=== PATIENT | male | born 1935 | race Caucasian/White ===

== ENCOUNTER 2016-09-30 18:34 | Observation (INO) | payer OTHER ==
[~2016-09-30] VITALS: Ht 188 cm; Wt 84.4 kg
[~2016-09-30 18:34] MED LIST: ALPR-411 PO; ASCA500 PO; ATOR-26 PO; CLOP1TAB15 PO; FINA5TAB4 PO; FLUT50SP14; FLX10 PO; GEMF600T3 PO; LEVO125T72 PO; MULT-506 PO; NTRGSL/4 UT; PANT40TA PO; RANI300T PO
--- NOTE | 2016-09-30 19:05 | EMERGENCY ROOM VISIT NOTE ---
History Report prepared by Fidel: Lynda Howell Under the Supervision of: Dr. Guillaume Mario M.D. First contact with patient: 18:57 Chief Complaint: CHEST PAIN Stated Complaint: CHEST PAIN Nursing Triage Summary: Pt reports chest pain, SOB, dizziness. It started yesterday. Hx cardiac stents and pacemaker. History of Present Illness The patient is a 81 year old male who presents to the Emergency Room with complaints of intermittent chest pain that began yesterday. He notes that the pain goes across his chest. It is worse with eating and drinking and occasionally worse with exertion. Nothing seems to make it better. He has been taking antacids without relief. He also complains of dizziness and shortness of breath. Currently, he is not having any chest pain. He is on Plavix. He took his morning dose so far today. The patient has cardiac stents which were placed years ago. He notes that his pain feels similar to the pain he had with a hiatal hernia but it does not feel similar to his symptoms when he had his stents placed. He follows up with Dr. Padron from cardiology. He has not taken any nitroglycerin since the onset of his symptoms. Source of History: patient Onset: yesterday Position: chest Timing: intermittent Modifying Factors (Worsening): exertion (occasionally), eating, drinking Associated Symptoms: + SOB Note: Other symptoms: dizziness Review of Systems See HPI for pertinent positives & negatives. A total of 10 systems reviewed and were otherwise negative. Past Medical & Surgical Medical Problems: (1) Aspirin allergy (2) BPH (benign prostatic hyperplasia) (3) CAD (coronary artery disease) (4) Chest pain (5) GERD (gastroesophageal reflux disease) (6) HLD (hyperlipidemia) (7) Hypothyroidism (8) Lactose intolerance (9) Mitral valve disorder (10) Pacemaker (11) SSS (sick sinus syndrome) (12) TIA (transient ischemic attack) Surgical Problems: (1) H/O colonoscopy (2) H/O hernia repair (3) History of esophagogastroduodenoscopy (EGD) (4) Hx of CABG (5) Hx of tonsillectomy (6) Stented coronary artery Family History Diabetes mellitus Social History Smoking Status: Never Smoker Alcohol Use: none Drug Use: none Marital Status: Housing Status: lives with family Occupation Status: retired Current/Historical Medications Scheduled Alprazolam (Xanax), 0.25 MG PO BID PRN Ascorbic Acid (Vitamin C *), 500 MG PO DAILY Atorvastatin (Lipitor), 80 MG PO DAILY Clopidogrel (Plavix), 75 MG PO BID Finasteride (Proscar), 5 MG PO DAILY Fluticasone Propionate (Flonase Nasal [place]), 2 SPRAYS NA DAILY Gemfibrozil (Lopid), 600 MG PO BIDM Levothyroxine Sodium (Synthroid), 1 TAB PO DAILY Multivitamin (Multivitamin), 1 TAB PO DAILY Nitroglycerin (Nitrostat), 0.4 MG UT PRN Ranitidine Hcl (Zantac), 300 MG PO DAILY Allergies Coded Allergies: Aspirin (Verified Allergy, Severe, HIVES/ANGIOEDEMA, 09/30/16) Cilostazol (Verified Allergy, Unknown, unknown, 08/10/16) gmg Lactose Intolerance (Verified Adverse Reaction, Mild, GI SYMPTOMS, 09/30/16) Physical Exam Vital Signs Date Time Temp Pulse Resp B/P Pulse Ox O2 Delivery O2 Flow Rate FiO2 09/30/16 19:24 95 3.0 09/30/16 19:07 95 Room Air 09/30/16 19:07 95 09/30/16 18:52 62 09/30/16 18:47 36.4 63 20 174/95 95 Room Air Physical Exam GENERAL: Patient is a healthy-appearing well-nourished 81 year old male HEAD: Normocephalic atraumatic EYES: Ocular movements intact pupils equal and react to light OROPHARYNX mucous membranes are moist no exudates present no erythema or edema present NECK: Supple no nuchal rigidity CHEST: Good equal expansion LUNGS: Clear and equal to auscultation CARDIAC: Normal S1 and S2 ABDOMEN: Soft nontender no guarding BACK: No CVA tenderness EXTREMITIES: No pain upon palpation normal muscle strength in all groups no clubbing cyanosis or edema NEURO: Patient is following commands is answering questions appropriately. Alert and oriented x3 Cranial Nerves 2-12 grossly intact Medical Decision & Procedures ER Provider Diagnostic Interpretation: X-ray results as stated below per interpretation by me and the radiologist: SINGLE VIEW CHEST CLINICAL HISTORY: Atypical chest pain. FINDINGS: 2 AP, portable, upright chest radiographs are compared to study dated 08/10/2016. The examination is degraded by portable technique and patient rotation. A 2-lead cardiac pacemaker is unchanged in position and partially obscures the left upper chest. The patient is status post midline sternotomy. The heart is enlarged and there is atherosclerotic calcification of the thoracic aorta. The pulmonary vasculature is noncongested. Mild elevation right hemidiaphragm and chronic interstitial thickening are similar to previous. The lungs and pleural spaces are otherwise clear. No pneumothorax is seen. The skeletal structures are osteopenic. The bony thorax is grossly intact. Calcific tendinopathy is noted in the left shoulder. IMPRESSION: 1. Cardiomegaly and cardiac pacemaker. There is no radiographic evidence of congestive failure. 2. No airspace consolidation or pleural effusion is seen. Electronically signed by: Ludwin Agosto M.D. 09/30/2016 8:02 PM Dictated Date/Time: 09/30/2016 8:00 PM Laboratory Results 09/30/16 18:50 Red Blood Count 4.55, Mean Corpuscular Volume 94.7, Mean Corpuscular Hemoglobin 31.4, Mean Corpuscular Hemoglobin Concent 33.2, Mean Platelet Volume 10.0, Neutrophils (%) (Auto) 55.9, Lymphocytes (%) (Auto) 29.0, Monocytes (%) (Auto) 11.8, Eosinophils (%) (Auto) 2.6, Basophils (%) (Auto) 0.5, Neutrophils # (Auto ) 2.37, Lymphocytes # (Auto) 1.23, Monocytes # (Auto) 0.50, Eosinophils # (Auto ) 0.11, Basophils # (Auto) 0.02 09/30/16 18:50 Test 09/30/16 18:50 09/30/16 19:15 09/30/16 19:19 09/30/16 19:24 White Blood Count 4.24 K/uL (4.8-10.8) Red Blood Count 4.55 M/uL (4.7-6.1) Hemoglobin 14.3 g/dL (14.0-18.0) Hematocrit 43.1 % (42-52) Mean Corpuscular Volume 94.7 fL (80-100) Mean Corpuscular Hemoglobin 31.4 pg (25-34) Mean Corpuscular Hemoglobin Concent 33.2 g/dl (32-36) Platelet Count 292 K/uL (130-400) Mean Platelet Volume 10.0 fL (7.4-10.4) Neutrophils (%) (Auto) 55.9 % Lymphocytes (%) (Auto) 29.0 % Monocytes (%) (Auto) 11.8 % Eosinophils (%) (Auto) 2.6 % Basophils (%) (Auto) 0.5 % Neutrophils # (Auto) 2.37 K/uL (1.4-6.5) Lymphocytes # (Auto) 1.23 K/uL (1.2-3.4) Monocytes # (Auto) 0.50 K/uL (0.11-0.59) Eosinophils # (Auto) 0.11 K/uL (0-0.5) Basophils # (Auto) 0.02 K/uL (0-0.2) RDW Standard Deviation 47.2 fL (36.4-46.3) RDW Coefficient of Variation 13.6 % (11.5-14.5) Immature Granulocyte % (Auto) 0.2 % Immature Granulocyte # (Auto) 0.01 K/uL (0.00-0.02) Est Creatinine Clear Calc Drug Dose 54.3 ml/min Estimated GFR () 64.4 Estimated GFR (Non- 55.6 BUN/Creatinine Ratio 19.7 (10-20) Calcium Level 8.9 mg/dl (8.5-10.1) Total Bilirubin 0.4 mg/dl (0.2-1) Direct Bilirubin 0.1 mg/dl (0-0.2) Aspartate Amino Transf (AST/SGOT) 22 U/L (15-37) Alanine Aminotransferase (ALT/SGPT) 25 U/L (12-78) Alkaline Phosphatase 127 U/L (45-117) Total Creatine Kinase 210 U/L (39-308) Creatine Kinase MB 5.1 ng/ml (0.5-3.6) Creatine Kinase MB Ratio 2.4 (0-3.0) Troponin I < 0.015 ng/ml (0-0.045) Total Protein 7.8 gm/dl (6.4-8.2) Albumin 4.3 gm/dl (3.4-5.0) Lipase 332 U/L (73-393) Bedside Lactic Acid Venous 0.47 mmol/L (0.90-1.70) Bedside Hemoglobin 13.9 g/dl (14.0-18.0) Bedside Hematocrit 41 % (42-52) Bedside Sodium 145 mEq/L (135-144) Bedside Potassium 4.0 mEq/L (3.3-5.0) Bedside Chloride 105 mEq/L (101-112) Bedside Total CO2 29 mEq/l (24-31) Anion Gap 16.0 mmol/L (16-25) Bedside Blood Urea Nitrogen 29 mg/dl (7-18) Bedside Creatinine 1.0 mg/dl (0.6-1.3) Bedside Glucose (other) 101 mg/dl (70-99) Bedside Ionized Calcium (Harry) 1.15 mmol/l (1.12-1.32) Bedside Troponin I 0.000 ng/ml (0-0.045) Test 09/30/16 19:46 Bedside D-Dimer 352 ng/mlFEU (0-450) Labs reviewed by ED physician. ECG Indication: chest pain Rate (beats per minute): 65 Rhythm: other (atrial paced) Findings: RBBB, no acute ischemic change, no ectopy ED Course 1857: Past medical records reviewed. The patient was evaluated in room B10. A complete history and physical examination was performed. 1948: Upon reexamination the patient is resting comfortably. I discussed results and treatment plan with the patient. He verbalizes agreement and understanding. [facility] The patient will be evaluated for further management. Medical Decision Differential diagnosis: Etiologies such as cardiac ischemia, aortic dissection, pulmonary embolism, pneumonia, pneumothorax, musculoskeletal, infections, pericarditis, myocarditis , esophageal rupture, gastrointestinal, as well as others were entertained. This is an 81-year-old male who presents emergency department complaining of exertional chest pain that has been on going for the past 3 days. The patient has a history of cardiac stents placed. Upon arrival to the emergency department the patient is currently pain-free. Because of the patient's past medical history I did discuss the case with the hospitalist service who agreed to admit the patient. Patient family were in agreement with the treatment plan. Consults Time Called: 1944 Consulting Physician[facility] Returned Call: 1948 I discussed the case with her. The patient will be evaluated for further management. Impression Primary Impression: Precordial chest pain Scribe Attestation The scribe's documentation has been prepared under my direction and personally reviewed by me in its entirety. I confirm that the note above accurately reflects all work, treatment, procedures, and medical decision making performed by me. Departure Information Dispostion Being Evaluated By Hospitalist Referrals Darell Mckeon D.O. (PCP) Patient Instructions My [facility]
[2016-09-30 19:23] LABS: BASO % 0.5 %; BASO ABS # 0.02 K/uL (0-0.2); COMPLETE YES; EOS % 2.6 %; HEMATOCRIT 43.1 % (42-52); IG% 0.2 %; LYMPH ABS # 1.23 K/uL (1.2-3.4); MEAN CELL VOLUME 94.7 fL (80-100); MEAN CORPUSCULAR HEMOGLOBIN 31.4 pg (25-34); MEAN CORPUSCULAR HGB CONC 33.2 g/dl (32-36); MONO % 11.8 %; NEUT % 55.9 %; PLATELET COUNT 292 K/uL (130-400); RED BLOOD COUNT 4.55 M/uL (4.7-6.1); WHITE BLOOD COUNT 4.24 K/uL (4.8-10.8)
[2016-09-30 19:31] LABS: BLOOD UREA NITROGEN 24 mg/dl (7-18); BUN/CREATININE RATIO 19.7 (10-20); CALCIUM 8.9 mg/dl (8.5-10.1); CARBON DIOXIDE 29 mmol/L (21-32); CHLORIDE 108 mmol/L (98-107); GLUCOSE 96 mg/dl (70-99); POTASSIUM 3.7 mmol/L (3.5-5.1); SODIUM 145 mmol/L (136-145)
[2016-09-30 19:35] LABS: ISTAT HEMOGLOBIN 13.9 g/dl (14.0-18.0); ISTAT IONIZED CALCIUM 1.15 mmol/l (1.12-1.32)
[2016-09-30 19:36] LABS: ALKALINE PHOSPHATASE 127 U/L (45-117); ALT/SGPT 25 U/L (12-78); AST/SGOT 22 U/L (15-37); CKMB/CK RATIO 2.4 (0-3.0)
--- NOTE | 2016-09-30 20:04 | DIAGNOSTIC IMAGING REPORT ---
SINGLE VIEW CHEST CLINICAL HISTORY: Atypical chest pain. FINDINGS: 2 AP, portable, upright chest radiographs are compared to study dated 08/10/2016. The examination is degraded by portable technique and patient rotation. A 2-lead cardiac pacemaker is unchanged in position and partially obscures the left upper chest. The patient is status post midline sternotomy. The heart is enlarged and there is atherosclerotic calcification of the thoracic aorta. The pulmonary vasculature is noncongested. Mild elevation right hemidiaphragm and chronic interstitial thickening are similar to previous. The lungs and pleural spaces are otherwise clear. No pneumothorax is seen. The skeletal structures are osteopenic. The bony thorax is grossly intact. Calcific tendinopathy is noted in the left shoulder. IMPRESSION: 1. Cardiomegaly and cardiac pacemaker. There is no radiographic evidence of congestive failure. 2. No airspace consolidation or pleural effusion is seen. Electronically signed by: Ludwin Agsoto M.D. 09/30/2016 8:02 PM Dictated Date/Time: 09/30/2016 8:00 PM
[2016-09-30] MEDS ORDERED: ACETAMINOPHEN 325 MG TAB PO PRN (20:15)
[2016-09-30] MEDS ORDERED: NITROGLYCERIN 0.4 MG SL PER TAB CHARGE SL PRN (20:15)
[2016-09-30] MEDS ORDERED: ONDANSETRON INJ 2 MG/ML 2 ML VIAL IV PRN (20:15)
[2016-09-30 20:39] LABS: INR 1.1 (0.9-1.1); PARTIAL THROMBOPLASTIN RATIO 1.1
[2016-09-30] MEDS ORDERED: GI COCKTAIL PO PRN (20:45)
[2016-09-30] MEDS ORDERED: ALPRAZOLAM 0.5 MG TAB PO PRN (20:45)
[2016-09-30] MEDS ORDERED: HydrALAZINE HCL 20 MG/ML VIAL IV. ONE (21:00)
[2016-09-30] MEDS ORDERED: ENOXAPARIN 40 MG/0.4 ML SYR SC SCH (21:00)
--- NOTE | 2016-09-30 21:02 | History and Physical ---
History & Physical Date & Time of Service: Sep 30, 2016 at 20:40 Chief Complaint: Chest Pain Primary Care Physician: Darell Mckeon D.O. History of Present Illness Source: patient, family, clinic records, hospital records Patient seen and examined. 81 year old male with PMHx of CAD s/p CABG s/p stents , H/O TIA, GERD, Hypothyrodism, SA node dysfunction s/p pacemaker, BPH and HLD presents to the ED complaining of chest pain x 2 days. Patient states he has been getting diffuse chest pressure with radiation to the throat since yesterday. The pain usually comes with eating or walking. He has associated SOB , and dizziness. He rates the pain as a 2-3/10 and it usually lasts for 30- 45minutes and resolves spontaneously. He tried nitro at home which didn't help. He tried antacids at home which did help. These symptoms made his worried and he decided to come to the ED. He denies fevers, chills, URI symptoms, palpitations, nausea, vomiting, diarrhea, dysuria, calf pain and edema. In the ED BP is elevated, VS are otherwise stable, Geremias are negative x 1, EKG is nonischemic. DDimer is negative. Patient is chest pain free. He will be observed for further workup and treatment. Past Medical/Surgical History Medical Problems: (1) Aspirin allergy Status: Chronic (2) BPH (benign prostatic hyperplasia) Status: Chronic (3) CAD (coronary artery disease) Status: Chronic (4) GERD (gastroesophageal reflux disease) Status: Chronic (5) HLD (hyperlipidemia) Status: Chronic (6) Hypothyroidism Status: Chronic (7) Lactose intolerance Status: Chronic (8) Mitral valve disorder Status: Chronic (9) Pacemaker Status: Chronic (10) SSS (sick sinus syndrome) Status: Chronic Surgical Problems: (1) H/O colonoscopy Status: Chronic (2) H/O hernia repair Status: Chronic (3) History of esophagogastroduodenoscopy (EGD) Status: Chronic (4) Hx of CABG Status: Chronic (5) Hx of tonsillectomy Status: Chronic (6) Stented coronary artery Status: Chronic Family History Diabetes mellitus Social History Smoking Status: Never Smoker Alcohol Use: none Drug Use: none Marital Status: Housing status: lives with family Occupational Status: retired Immunizations History of Influenza Vaccine: Yes Influenza Vaccine Date: Jun 25, 2012 History of Tetanus Vaccine?: Yes History of Pneumococcal: No History of Hepatitis B Vaccine: Unknown Multi-Drug Resistant Organisms History of MDRO: No Allergies Coded Allergies: Aspirin (Verified Allergy, Severe, HIVES/ANGIOEDEMA, 09/30/16) Cilostazol (Verified Allergy, Unknown, unknown, 08/10/16) gmg Lactose Intolerance (Verified Adverse Reaction, Mild, GI SYMPTOMS, 09/30/16) Home Medications Scheduled Alprazolam (Xanax), 0.25 MG PO BID PRN Ascorbic Acid (Vitamin C *), 500 MG PO DAILY Atorvastatin (Lipitor), 80 MG PO DAILY Clopidogrel (Plavix), 75 MG PO BID Finasteride (Proscar), 5 MG PO DAILY Fluticasone Propionate (Flonase Nasal [place]), 2 SPRAYS NA DAILY Gemfibrozil (Lopid), 600 MG PO BIDM Levothyroxine Sodium (Synthroid), 1 TAB PO DAILY Multivitamin (Multivitamin), 1 TAB PO DAILY Nitroglycerin (Nitrostat), 0.4 MG UT PRN Ranitidine Hcl (Zantac), 300 MG PO DAILY Review of Systems See above for pertinent positives & negatives. A total of 10 systems reviewed and were otherwise negative. Physical Exam Vital Signs Date Time Temp Pulse Resp B/P Pulse Ox O2 Delivery O2 Flow Rate FiO2 09/30/16 19:24 95 3.0 09/30/16 19:07 95 Room Air 09/30/16 19:07 95 09/30/16 18:52 62 09/30/16 18:47 36.4 63 20 174/95 95 Room Air General Appearance: + pertinent finding (Very pleasant WD/WN 81 year old male lying in bed in NAD with at bedside ) Head: normocephalic, atraumatic Eyes: PERRL, EOMI, sclerae normal ENT: hearing grossly normal, pharynx normal Neck: supple, no JVD, trachea midline Respiratory/Chest: chest non-tender, lungs clear, normal breath sounds, no respiratory distress, no accessory muscle use Cardiovascular: regular rate, rhythm, no edema, no gallop, no JVD, no murmur, normal peripheral pulses Abdomen/GI: normal bowel sounds, non tender, soft Back: normal inspection, no muscle spasm Extremities/Musculoskelatal: no calf tenderness, normal capillary refill, no pedal edema Neurologic/Psych: alert, oriented x 3, + pertinent finding (no motor or sensory deficits noted on gross exam ) Skin: normal color, warm/dry, no rash Lymphatic: no adenopathy Diagnostics Laboratory Results Results Past 24 Hours Test 09/30/16 18:50 09/30/16 19:15 09/30/16 19:19 09/30/16 19:24 Range/Units White Blood Count 4.24 4.8-10.8 K/uL Red Blood Count 4.55 4.7-6.1 M/uL Hemoglobin 14.3 14.0-18.0 g/dL Hematocrit 43.1 42-52 % Mean Corpuscular Volume 94.7 80-100 fL Mean Corpuscular Hemoglobin 31.4 25-34 pg Mean Corpuscular Hemoglobin Concent 33.2 32-36 g/dl Platelet Count 292 130-400 K/uL Mean Platelet Volume 10.0 7.4-10.4 fL Neutrophils (%) (Auto) 55.9 % Lymphocytes (%) (Auto) 29.0 % Monocytes (%) (Auto) 11.8 % Eosinophils (%) (Auto) 2.6 % Basophils (%) (Auto) 0.5 % Neutrophils # (Auto) 2.37 1.4-6.5 K/uL Lymphocytes # (Auto) 1.23 1.2-3.4 K/uL Monocytes # (Auto) 0.50 0.11-0.59 K/uL Eosinophils # (Auto) 0.11 0-0.5 K/uL Basophils # (Auto) 0.02 0-0.2 K/uL RDW Standard Deviation 47.2 36.4-46.3 fL RDW Coefficient of Variation 13.6 11.5-14.5 % Immature Granulocyte % (Auto) 0.2 % Immature Granulocyte # (Auto) 0.01 0.00-0.02 K/uL Prothrombin Time 12.0 9.0-12.0 SECONDS Prothromb Time International Ratio 1.1 0.9-1.1 Activated Partial Thromboplast Time 28.0 21.0-31.0 SECONDS Partial Thromboplastin Ratio 1.1 Sodium Level 145 136-145 mmol/L Potassium Level 3.7 3.5-5.1 mmol/L Chloride Level 108 98-107 mmol/L Carbon Dioxide Level 29 21-32 mmol/L Anion Gap 8.0 16.0 16-25 mmol/L Blood Urea Nitrogen 24 7-18 mg/dl Creatinine 1.20 0.60-1.40 mg/dl Est Creatinine Clear Calc Drug Dose 54.3 ml/min Estimated GFR () 64.4 Estimated GFR (Non- 55.6 BUN/Creatinine Ratio 19.7 10-20 Random Glucose 96 70-99 mg/dl Calcium Level 8.9 8.5-10.1 mg/dl Total Bilirubin 0.4 0.2-1 mg/dl Direct Bilirubin 0.1 0-0.2 mg/dl Aspartate Amino Transf (AST/SGOT) 22 15-37 U/L Alanine Aminotransferase (ALT/SGPT) 25 12-78 U/L Alkaline Phosphatase 127 45-117 U/L Total Creatine Kinase 210 39-308 U/L Creatine Kinase MB 5.1 0.5-3.6 ng/ml Creatine Kinase MB Ratio 2.4 0-3.0 Troponin I < 0.015 0-0.045 ng/ml Total Protein 7.8 6.4-8.2 gm/dl Albumin 4.3 3.4-5.0 gm/dl Lipase 332 73-393 U/L Bedside Lactic Acid Venous 0.47 0.90-1.70 mmol/L Bedside Hemoglobin 13.9 14.0-18.0 g/dl Bedside Hematocrit 41 42-52 % Bedside Sodium 145 135-144 mEq/L Bedside Potassium 4.0 3.3-5.0 mEq/L Bedside Chloride 105 101-112 mEq/L Bedside Total CO2 29 24-31 mEq/l Bedside Blood Urea Nitrogen 29 7-18 mg/dl Bedside Creatinine 1.0 0.6-1.3 mg/dl Bedside Glucose (other) 101 70-99 mg/dl Bedside Ionized Calcium (Harry) 1.15 1.12-1.32 mmol/l Bedside Troponin I 0.000 0-0.045 ng/ml Test 09/30/16 19:46 Range/Units Bedside D-Dimer 352 0-450 ng/mlFEU Diagnostic Radiology CXR Per radiologist read: IMPRESSION: 1. Cardiomegaly and cardiac pacemaker. There is no radiographic evidence of congestive failure. 2. No airspace consolidation or pleural effusion is seen. EKG Atrial Paced 65 BPM, QTc 470 Impression Assessment and Plan 81 year old male presents to the ED complaining of chest pain, worst with eating and walking. Nitro does not help. Antacids do. Workup negative thus far CHEST PAIN R/O ACS - history of CAD s/p failed CABG and STENTS -Observation in tele -First set of CE negative in ED, DDimer negative, EKG nonischemic -Risk factors:known CAD, HLD, Age -?GERD -Serial Geremias and EKGs -Fasting lipid panel in AM -Echo pending to r/o heart wall abnormality -Has TRUE ASPIRIN ALLERGY -Continue Plavix, Statin -Nitro prn chest pain -Try GI cocktail prn -AHA diet -CBC, PRP, Mg daily HYPERTENSION -SBP >170 -not on any BP meds at home, states his BP is usually low -? anxiety component -continue Xanax prn -Hydralazine 10mg IV now -monitor in tele SA NODE DYSFUNCTION -s/p pacemaker -interrogate pacemaker H/O TIA -continue Statin, Plavix GERD -continue Zantac -add GI cocktail prn HYPOTHYROIDISM -continue Synthroid HLD -continue Statin BPH -continue Proscar DVT PROPHYLAXIS: Sq Lovenox CODE STATUS: FULL CODE DISPO:observation pending further workup Patient seen in collaboration with Dr. Correa ATTENDING ADDENDUM Record reviewed. Patient interviewed and examined. I have discussed the case with the provider above. Care coordinated with Kristine Sy PA-C. Please refer to her documentation for patient's history. Physical exam reveals a WNWD 81 yo M in no acute distress with normal heart and lung exam. He is afebrile and hemodynamically stable. He has no chest wall TTP and no skin findings in area of described pain. He develops pain historically over the past few days in assoc with food. Favor acid reflux as a cause of pain. GI cocktail ordered. Cont with workup as above, and Cards to see in am based on extensive CAD history. Hedy Correa DO (Hospitalist) Level of Care Telemetry VTE Prophylaxis VTE Risk Assessment Done? Y/N: Yes Risk Level: Moderate Given or contraindicated: Enoxaparin (Lovenox)SQ
[2016-09-30 21:35] VITALS: BP 180/95; PULSE 92; TEMP 36.4; O2SAT 95; Ht 188 cm; Wt 84.4 kg
[2016-09-30] MEDS ORDERED: ALUMINUM/MAGNESIUM SUSP 72 ML, LIDOCAINE HCL 2% VISCOUS SOLN 24 ML, BARCODE IDENTIFIER ... PO PRN ×2 (21:45)
[2016-09-30] MEDS ORDERED: PNEUMOCOCCAL ADMINISTRATION CHARGE ONE (22:00)
[2016-09-30] MEDS ORDERED: PNEUMOCOCCAL POLYSACCHARIDES 25 MCG/0.5 ML VIAL/SYR IM. ONE (22:00)
[2016-09-30] MEDS: CLOPIDOGREL BISULFATE 75 MG TAB PO SCH (22:17)
[2016-09-30] MEDS ORDERED: MoRPHine SULFATE 4 MG/ML 1 ML CARP\\VIAL IV PRN (22:30)
[2016-09-30 23:36] VITALS: BP 146/72; PULSE 62; TEMP 36.7; O2SAT 95
[2016-09-30] MEDS ORDERED: IV FLUIDS COMPLETED PRN (23:45)
[2016-10-01 02:15] LABS: HEMATOCRIT 39.7 % (42-52); MEAN CELL VOLUME 93.6 fL (80-100); MEAN CORPUSCULAR HEMOGLOBIN 31.4 pg (25-34); MEAN CORPUSCULAR HGB CONC 33.5 g/dl (32-36); MEAN PLATELET VOLUME 9.7 fL (7.4-10.4); PLATELET COUNT 256 K/uL (130-400); RED BLOOD COUNT 4.24 M/uL (4.7-6.1)
[2016-10-01 02:31] LABS: BLOOD UREA NITROGEN 23 mg/dl (7-18); BUN/CREATININE RATIO 23.5 (10-20); CALCIUM 8.6 mg/dl (8.5-10.1); CARBON DIOXIDE 26 mmol/L (21-32); CHLORIDE 109 mmol/L (98-107); CREATININE 0.96 mg/dl (0.60-1.40); GLUCOSE 84 mg/dl (70-99); MAGNESIUM 2.2 mg/dl (1.8-2.4); POTASSIUM 3.1 mmol/L (3.5-5.1); SODIUM 145 mmol/L (136-145)
[2016-10-01 02:41] LABS: CHOLESTEROL 128 mg/dl (0-200); CHOLESTEROL/HDL RATIO 2.8; CKMB/CK RATIO 2.5 (0-3.0); HDL CHOLESTEROL 45 mg/dl; LDL CHOLESTEROL CALCULATED 71 mg/dl; TRIGLYCERIDES 62 mg/dl (0-150); VERY LOW DENSITY LIPOPROT CALC 12 mg/dl
[2016-10-01] MEDS ORDERED: POTASSIUM CHLORIDE 10 MEQ TABCR PO STA (03:53)
[2016-10-01 04:00] VITALS: BP 135/75; PULSE 60; TEMP 36.5; O2SAT 94
[2016-10-01] MEDS ORDERED: LEVOTHYROXINE 125 MCG TAB PO SCH (06:00)
[2016-10-01] MEDS: GEMFIBROZIL 600 MG TAB PO SCH ×2 (07:30→15:29)
[2016-10-01] MEDS ORDERED: ASCORBIC ACID 500 MG TAB PO SCH (09:00)
[2016-10-01] MEDS ORDERED: MULTIVITAMIN TAB PO SCH (09:00)
[2016-10-01] MEDS ORDERED: FINASTERIDE 5 MG TAB PO SCH (09:00)
[2016-10-01] MEDS ORDERED: RANITIDINE HCL 150 MG TAB PO SCH (09:00)
[2016-10-01] MEDS ORDERED: ATORVASTATIN 40 MG TAB PO SCH (09:00)
[2016-10-01] MEDS ORDERED: FLUTICASONE PROPIONATE NA SPR 16 GM BTL SCH (09:00)
[2016-10-01 09:20] LABS: CKMB/CK RATIO 2.2 (0-3.0)
--- NOTE | 2016-10-01 10:16 | Progress Note ---
Internal Med Progress Note Date of Service: Oct 01, 2016. Provider Documentation: SUBJECTIVE: Patient is doing well. Chest pain has resolved. No SOB, fever, chills, heart burn, cough, leg swelling. C/o atypical chest pain which goes up to throat and head feels funny. Tele- no events OBJECTIVE: Vital Signs-as noted below Exam: General-AAOX3, no distress Neck-Supple, No JVD; No sinus pressure tenderness Lungs-AEBE, no wheezing, rhonchi, rales Heart-S1, S2 normal, No murmurs Abdomen-Soft, non tender, non distended, BS present Extremities-No edema Lab data as noted below. Diagnostic Radiology CXR Per radiologist read: IMPRESSION: 1. Cardiomegaly and cardiac pacemaker. There is no radiographic evidence of congestive failure. 2. No airspace consolidation or pleural effusion is seen. EKG Atrial Paced 65 BPM, QTc 470 ASSESSMENT & PLAN: Assessment and Plan: 81 year old male presents to the ED complaining of chest pain, worst with eating and walking. Nitro does not help. Antacids do. Workup negative thus far CHEST PAIN, Atypical: Likely GERD vs musculoskeletal. Less likely to be cardiac after a detailed H & P -Risk factors:known CAD S/P Failed CABG/Stents, HLD, Age -Continue with Plavix, statin, TRUE ALLERGY TO ASPIRIN -Trop x 2 negative, EKG x 2- no acute ischemic changes, atrial paced rhythm, RBBB, Lipid panel- LDL 70 -Discussed with cardiology- plan is resting echo to rule out wall motion abnormalities. -Echo pending to r/o heart wall abnormality -Has TRUE ASPIRIN ALLERGY -Continue Plavix, Statin HYPERTENSION -SBP >170 on presentation, went up to 180s , but now 135/75. -Not on any BP meds at home, states his BP is usually low -? anxiety component contributing -Continue with Xanax SA NODE DYSFUNCTION -S/P pacemaker -interrogate pacemaker ? will defer to cardiology H/O TIA -continue Statin, Plavix GERD -continue Zantac -Added GI cocktail prn to see if it helps HYPOTHYROIDISM -continue Synthroid HLD -continue Statin BPH -continue Proscar DVT PROPHYLAXIS: Sq Lovenox CODE STATUS: FULL CODE DISPO:observation status If cardiac work up negative, okay to discharge today Vital Signs: Date Time Temp Pulse Resp B/P Pulse Ox O2 Delivery O2 Flow Rate FiO2 2/10/17 04:00 Room Air 10/01/16 04:00 36.5 60 18 135/75 94 Room Air 10/01/16 00:00 Room Air 09/30/16 23:36 36.7 62 18 146/72 95 Room Air 09/30/16 21:35 36.4 92 18 180/95 95 Room Air 09/30/16 21:21 64 16 146/90 100 09/30/16 20:23 63 16 165/100 100 09/30/16 19:24 95 3.0 09/30/16 19:07 95 Room Air 09/30/16 19:07 95 09/30/16 18:52 62 09/30/16 18:47 36.4 63 20 174/95 95 Room Air Lab Results: Results Past 24 Hours Test 09/30/16 18:50 09/30/16 19:15 09/30/16 19:19 09/30/16 19:24 Range/Units White Blood Count 4.24 4.8-10.8 K/uL Red Blood Count 4.55 4.7-6.1 M/uL Hemoglobin 14.3 14.0-18.0 g/dL Hematocrit 43.1 42-52 % Mean Corpuscular Volume 94.7 80-100 fL Mean Corpuscular Hemoglobin 31.4 25-34 pg Mean Corpuscular Hemoglobin Concent 33.2 32-36 g/dl Platelet Count 292 130-400 K/uL Mean Platelet Volume 10.0 7.4-10.4 fL Neutrophils (%) (Auto) 55.9 % Lymphocytes (%) (Auto) 29.0 % Monocytes (%) (Auto) 11.8 % Eosinophils (%) (Auto) 2.6 % Basophils (%) (Auto) 0.5 % Neutrophils # (Auto) 2.37 1.4-6.5 K/uL Lymphocytes # (Auto) 1.23 1.2-3.4 K/uL Monocytes # (Auto) 0.50 0.11-0.59 K/uL Eosinophils # (Auto) 0.11 0-0.5 K/uL Basophils # (Auto) 0.02 0-0.2 K/uL RDW Standard Deviation 47.2 36.4-46.3 fL RDW Coefficient of Variation 13.6 11.5-14.5 % Immature Granulocyte % (Auto) 0.2 % Immature Granulocyte # (Auto) 0.01 0.00-0.02 K/uL Prothrombin Time 12.0 9.0-12.0 SECONDS Prothromb Time International Ratio 1.1 0.9-1.1 Activated Partial Thromboplast Time 28.0 21.0-31.0 SECONDS Partial Thromboplastin Ratio 1.1 Sodium Level 145 136-145 mmol/L Potassium Level 3.7 3.5-5.1 mmol/L Chloride Level 108 98-107 mmol/L Carbon Dioxide Level 29 21-32 mmol/L Anion Gap 8.0 16.0 16-25 mmol/L Blood Urea Nitrogen 24 7-18 mg/dl Creatinine 1.20 0.60-1.40 mg/dl Est Creatinine Clear Calc Drug Dose 54.3 ml/min Estimated GFR () 64.4 Estimated GFR (Non- 55.6 BUN/Creatinine Ratio 19.7 10-20 Random Glucose 96 70-99 mg/dl Calcium Level 8.9 8.5-10.1 mg/dl Magnesium Level 2.4 1.8-2.4 mg/dl Total Bilirubin 0.4 0.2-1 mg/dl Direct Bilirubin 0.1 0-0.2 mg/dl Aspartate Amino Transf (AST/SGOT) 22 15-37 U/L Alanine Aminotransferase (ALT/SGPT) 25 12-78 U/L Alkaline Phosphatase 127 45-117 U/L Total Creatine Kinase 210 39-308 U/L Creatine Kinase MB 5.1 0.5-3.6 ng/ml Creatine Kinase MB Ratio 2.4 0-3.0 Troponin I < 0.015 0-0.045 ng/ml Total Protein 7.8 6.4-8.2 gm/dl Albumin 4.3 3.4-5.0 gm/dl Lipase 332 73-393 U/L Bedside Lactic Acid Venous 0.47 0.90-1.70 mmol/L Bedside Hemoglobin 13.9 14.0-18.0 g/dl Bedside Hematocrit 41 42-52 % Bedside Sodium 145 135-144 mEq/L Bedside Potassium 4.0 3.3-5.0 mEq/L Bedside Chloride 105 101-112 mEq/L Bedside Total CO2 29 24-31 mEq/l Bedside Blood Urea Nitrogen 29 7-18 mg/dl Bedside Creatinine 1.0 0.6-1.3 mg/dl Bedside Glucose (other) 101 70-99 mg/dl Bedside Ionized Calcium (Harry) 1.15 1.12-1.32 mmol/l Bedside Troponin I 0.000 0-0.045 ng/ml Test 09/30/16 19:46 10/01/16 01:58 10/01/16 08:26 Range/Units Bedside D-Dimer 352 0-450 ng/mlFEU White Blood Count 5.20 4.8-10.8 K/uL Red Blood Count 4.24 4.7-6.1 M/uL Hemoglobin 13.3 14.0-18.0 g/dL Hematocrit 39.7 42-52 % Mean Corpuscular Volume 93.6 80-100 fL Mean Corpuscular Hemoglobin 31.4 25-34 pg Mean Corpuscular Hemoglobin Concent 33.5 32-36 g/dl RDW Standard Deviation 46.3 36.4-46.3 fL RDW Coefficient of Variation 13.6 11.5-14.5 % Platelet Count 256 130-400 K/uL Mean Platelet Volume 9.7 7.4-10.4 fL Sodium Level 145 136-145 mmol/L Potassium Level 3.1 3.5-5.1 mmol/L Chloride Level 109 98-107 mmol/L Carbon Dioxide Level 26 21-32 mmol/L Anion Gap 10.0 3-11 mmol/L Blood Urea Nitrogen 23 7-18 mg/dl Creatinine 0.96 0.60-1.40 mg/dl Est Creatinine Clear Calc Drug Dose 67.8 ml/min Estimated GFR () 84.4 Estimated GFR (Non- 72.8 BUN/Creatinine Ratio 23.5 10-20 Random Glucose 84 70-99 mg/dl Calcium Level 8.6 8.5-10.1 mg/dl Magnesium Level 2.2 1.8-2.4 mg/dl Total Creatine Kinase 166 148 39-308 U/L Creatine Kinase MB 4.2 3.3 0.5-3.6 ng/ml Creatine Kinase MB Ratio 2.5 2.2 0-3.0 Troponin I < 0.015 < 0.015 0-0.045 ng/ml Triglycerides Level 62 0-150 mg/dl Cholesterol Level 128 0-200 mg/dl HDL Cholesterol 45 mg/dl LDL Cholesterol, Calculated 71 mg/dl VLDL Cholesterol, Calculated 12 mg/dl Cholesterol/HDL Ratio 2.8
[2016-10-01 11:00] VITALS: BP 152/87; PULSE 64; TEMP 36.4; O2SAT 95
--- NOTE | 2016-10-01 11:26 | CARDIOLOGY CONSULTATION ---
DATE OF CONSULTATION: 10/01/2016 CONSULTATION REQUESTED BY: Kristine Sy. REASON FOR CONSULTATION: Chest discomfort. HISTORY OF PRESENT ILLNESS: Mr. Salomon is a very pleasant 81-year-old gentleman who normally follows with Dr. Padron of our cardiology practice. He presented to [facility] Emergency Department on 09/30/2016 with a complaint of chest discomfort. The patient states that for the last several days whenever he eats something he will develop chest discomfort afterwards. He described it as a burning sensation across his left precordium up into his throat and into the back of his mouth. He states this occurs anytime he eats anything or even when he drinks anything. He did take a nitroglycerin at home for which had absolutely no relief whatsoever. He had similar symptoms in the past for which he took antacids for. Currently antacids have not been helpful. He became concerned that it could be his heart and he came in the Emergency Department. Otherwise, he denies any complaints of shortness of breath, palpitations, lightheadedness, dizziness, or syncope. He has been active at home. He is currently building a smoker and has had no recurrence of his symptoms with exertion building the smoker. PAST SURGICAL HISTORY: 1. JULIO to the LAD that did not mature. 2. Follow up PCI to the LAD. 3. Medtronic dual chamber permanent pacemaker placement. 4. Colonoscopy. 5. Hernia repair. 6. Tonsil and adenoidectomy. MEDICAL ILLNESSES: 1. Coronary artery disease status post PCI to the LAD after failed JULIO. 2. Sick sinus syndrome, status post permanent pacemaker placement. 3. Mitral regurgitation. 4. Hypothyroidism. 5. History of gastroesophageal reflux disease. FAMILY HISTORY: Noncontributory. SOCIAL HISTORY: The patient denies any alcohol, tobacco or recreational drug use. REVIEW OF SYSTEMS: As per HPI, all other review of systems reviewed and negative at this time. ALLERGIES: 1. DOCUMENTED ALLERGY TO ASPIRIN. 2. CILOSTAZOL. MEDICATIONS AN OUTPATIENT: 1. Plavix 75 mg b.i.d. 2. Lopid 600 mg b.i.d. 3. Proscar 5 mg daily. 4. Ranitidine daily. 5. Atorvastatin 80 mg b.i.d. 6. Levoxyl 125 mcg daily. 7. Protonix daily. 8. Xanax as needed. 9. Pepto-Bismol as needed. PHYSICAL EXAMINATION: VITAL SIGNS: Temperature 36.5, pulse 60, respiratory rate 12, blood pressure 135/75. GENERAL: Awake, alert, oriented x3 in no acute distress. HEENT: Normocephalic, atraumatic. Pupils equal, round, and reactive to light and accommodation. Extraocular muscles intact. Anicteric sclerae. Moist mucous membranes. NECK: No JVD, no bruit. CARDIOVASCULAR: Regular. Positive S4. Normal S1 and S2. No S3. A 3/6 holosystolic ejection murmur at the left midclavicular line, fifth intercostal space with radiation to the left axilla. No rubs. PULMONARY: Clear to auscultation bilaterally. No rales, rhonchi, or wheezing. ABDOMEN: Bowel sounds x4, soft. No rebound, guarding, tenderness. No organomegaly. EXTREMITIES: No clubbing, cyanosis or edema. +2 pedal pulses bilaterally. SKIN: Warm and dry. TEST RESULTS: 12-lead EKG performed in the Emergency Department independently reviewed at this time shows an atrially paced rhythm at 65 beats per minute, right bundle branch block, no significant change compared to previous studies. LABORATORY STUDIES OF SIGNIFICANCE: Troponin negative x3. IMPRESSION: 1. GERD. 2. History of coronary artery disease status post PCI to the LAD. 3. Mitral regurgitation. 4. Sick sinus syndrome, status post permanent pacemaker placement. RECOMMENDATIONS: It was my pleasure to see Mr. Salomon in consultation today. Given the fact that the pain only occurs after eating along with the fact that his EKG is nonischemic and his troponins are unremarkable I do not believe this is cardiac in nature. We will perform a 2D echocardiogram for completeness sake. However, should that come back unremarkable or at least unchanged, then no further cardiac testing or intervention be necessary and further treatment of his GERD would be advised.
[2016-10-01 11:44] LABS: BUN/CREATININE RATIO 21.2 (10-20); CALCIUM 8.7 mg/dl (8.5-10.1)
--- NOTE | 2016-10-01 13:15 | ECHOCARDIOGRAM REPORT ---
*NOTICE TO RECEIVING LIBERTARIAN AGENCY This information is strictly Confidential and protected under [place] law. [place] law prohibits you from making any further disclosure of this information unless further disclosure is expressly permitted by the written consent of the person to whom it pertains or is authorized by law. A general authorization for the release of medical or other information is not sufficient for this purpose. Hospital accepts no responsibility if the information is made available to any other person, INCLUDING THE PATIENT. Interpretation Summary * Name: AIDEN VENCES Study Date: 10/01/2016 06:57 AM BP: 135/75 mmHg * Patient Location: C.2T\S\S239\S\2 HR: 66 * : 1935 (M/d/y) Gender: Male Height: 74 in * Age: 81 yrs Ethnicity: CA Weight: 182 lb * Ordering Physician: Kristine Sy * Performed By: Monique Adkins RDCS * * Reason For Study: Chest pain * BSA: 2.1 m2 * -- Conclusions -- * No significant change compared to previous study of 08/11/16. * Normal LV chamber size with moderate concentric LVH. * Normal LV systolic function, EF 55-60%. * No segmental left ventricular wall motion abnormalities are noted. * Grade I diastolic dysfunction. * Aortic valve sclerosis mild, without significant aortic valvular stenosis. * There is moderate to severe mitral regurgitation. * There is no mitral valve stenosis. * Prolapse of the posterior mitral leaflet(s). * There is moderate mitral valve prolapse. * Moderate left atrial enlargement. Procedure Details * A complete two-dimensional transthoracic echocardiogram was performed (2D, M-mode, Doppler and color flow Doppler). Left Ventricle * The left ventricle is normal in size. * There is moderate concentric left ventricular hypertrophy. * Ejection Fraction = 55-60%. * Left ventricular systolic function is normal. * No segmental left ventricular wall motion abnormalities are noted. * The left ventricular wall motion is normal. Right Ventricle * The right ventricle is borderline dilated. * The right ventricular systolic function is normal as assessed by tricuspid annular plane systolic excursion (TAPSE) (normal >1.5 cm). Atria * The left atrium is moderately dilated. * Right atrial size is normal. * No ASD detected; PFO is not assessed. Mitral Valve * Prolapse of the posterior mitral leaflet(s). * There is moderate mitral valve prolapse. * There is no mitral valve stenosis. * There is moderate to severe mitral regurgitation. Tricuspid Valve * The tricuspid valve anatomy is normal. * There is no tricuspid stenosis. * There is trace tricuspid regurgitation. Aortic Valve * The aortic valve is trileaflet. * Aortic valve sclerosis mild, without significant aortic valvular stenosis. * There is no significant aortic regurgitation. Pulmonic Valve * The pulmonary valve is not well seen, but the Doppler examination is normal without significant regurgitation or stenosis. Great Vessels * The aortic root and proximal ascending aorta are normal sized. Pericardium/Pleural * There is no pericardial effusion. Left Ventricular Diastolic Function * Grade I diastolic dysfunction, (abnormal relaxation pattern). MMode 2D Measurements and Calculations IVSd 1.5 cm LVIDd 4.4 cm LVIDs 3.3 cm LVPWd 1.4 cm IVS/LVPW 1.1 FS 26.1 % EDV(Teich) 89.1 ml ESV(Teich) 43.3 ml EF(Teich) 51.4 % EDV(cubed) 86.9 ml ESV(cubed) 35.1 ml EF(cubed) 59.7 % LV mass(C)d 265.5 grams LV mass(C)dI 127.2 grams/m\S\2 CO(Teich) 2.7 l/min CI(Teich) 1.3 l/min/m\S\2 SV(Teich) 45.8 ml SI(Teich) 22.0 ml/m\S\2 CO(cubed) 3.1 l/min CI(cubed) 1.5 l/min/m\S\2 SV(cubed) 51.9 ml SI(cubed) 24.8 ml/m\S\2 Ao root diam 3.1 cm Ao root area 7.7 cm\S\2 ACS 2.0 cm LA dimension 4.7 cm asc Aorta Diam 3.4 cm LA/Ao 1.5 LVOT diam 2.0 cm LVOT area 3.3 cm\S\2 LVAd ap4 31.0 cm\S\2 LVLd ap4 7.9 cm EDV(MOD-sp4) 100.0 ml LVAs ap4 19.3 cm\S\2 LVLs ap4 6.5 cm ESV(MOD-sp4) 47.0 ml EF(MOD-sp4) 53.0 % LVAd ap2 29.1 cm\S\2 LVLd ap2 8.5 cm EDV(MOD-sp2) 83.0 ml LVAs ap2 17.7 cm\S\2 LVLs ap2 6.9 cm ESV(MOD-sp2) 39.0 ml EF(MOD-sp2) 53.0 % CO(MOD-sp4) 3.2 l/min CI(MOD-sp4) 1.5 l/min/m\S\2 SV(MOD-sp4) 53.0 ml SI(MOD-sp4) 25.4 ml/m\S\2 CO(MOD-sp2) 2.6 l/min CI(MOD-sp2) 1.3 l/min/m\S\2 SV(MOD-sp2) 44.0 ml SI(MOD-sp2) 21.1 ml/m\S\2 Doppler Measurements and Calculations MV E max lisseth 42.5 cm/sec MV A max lisseth 71.3 cm/sec MV E/A 0.60 MV dec time 0.52 sec Ao V2 max 102.5 cm/sec Ao max PG 4.2 mmHg Ao max PG (full) 1.3 mmHg FLORENTINO(V,A) 2.7 cm\S\2 FLORENTINO(V,D) 2.7 cm\S\2 LV V1 max PG 2.9 mmHg LV V1 max 85.7 cm/sec PA V2 max 54.3 cm/sec PA max PG 1.2 mmHg PA acc slope 270.5 cm/sec\S\2 PA acc time 0.20 sec TR max lisseth 187.2 cm/sec PA pr(Accel) -11.32 mmHg
[2016-10-01 13:35] LABS: BUN/CREATININE RATIO 22.9 (10-20); CALCIUM 8.8 mg/dl (8.5-10.1); CREATININE 0.9 mg/dl (0.60-1.40); POTASSIUM 3.8 mmol/L (3.5-5.1)
--- NOTE | 2016-10-01 15:19 | Discharge Instructions ---
Discharge Instructions Admission Reason for Admission: Chest Pain Discharge Discharge Diagnosis / Problem: 1. Chest pain, acute Myocardial Infarction ruled out Discharge Goals Goal(s): Diagnostic testing, Therapeutic intervention Activity Recommendations Activity Limitations: resume your previous activity . Instructions / Follow-Up Instructions / Follow-Up No changes in medications FOLLOW UP: Follow up Dr Mckeon 10/08/16 at 10:50 AM Current Hospital Diet Patient's current hospital diet: AHA Diet (Heart Healthy) Discharge Diet Recommended Diet: AHA Diet (Heart Healthy) Pending Studies Studies pending at discharge: no Laboratory Results Lipid Panel Test 10/01/16 01:58 Range/Units Triglycerides Level 62 0-150 mg/dl Cholesterol Level 128 0-200 mg/dl HDL Cholesterol 45 mg/dl Cholesterol/HDL Ratio 2.8 LDL Cholesterol, Calculated 71 mg/dl Medical Emergencies . Who to Call and When: Medical Emergencies: If at any time you feel your situation is an emergency, please call 911 immediately. . Non-Emergent Contact Non-Emergency issues call your: Primary Care Provider . . "Provider Documentation" section prepared by April Harrington. VTE Core Measure Inpt VTE Proph given/why not?: Enoxaparin (Lovenox)SQ
--- NOTE | 2016-10-01 15:23 | Discharge Summary ---
Discharge Summary Admission Date: Sep 30, 2016 at 20:04 Discharge Date: Oct 01, 2016 Discharge Disposition: Home Principal Diagnosis: 1. Chest pain, acute myocardial infarction ruled out Secondary Diagnoses/Problems: 1. Hypertension 2. Hx of TIA 3. SA altagracia dysfunction 4. GERD 5. BPH 6. Hyperlipidemia Procedures: Tele monitoring Serial EKG Serial Troponin Echocardiogram CXR Consultations: Cardiology, Dr Harrell Pending Studies/Follow-Up: Instructions / Follow-Up Instructions / Follow-Up No changes in medications FOLLOW UP: Follow up Dr Mckeon 10/08/16 at 10:50 AM Medication Reconciliation Continued Medications: Alprazolam (Xanax) 0.5 Mg Tab 0.25 MG PO BID PRN, 0 Refills Ascorbic Acid (Vitamin C *) 500 Mg Tab 500 MG PO DAILY Atorvastatin (Lipitor) 80 Mg Tab 80 MG PO DAILY, 0 Refills Clopidogrel (Plavix) 75 Mg Tab 75 MG PO BID Finasteride (Proscar) 5 Mg Tab 5 MG PO DAILY, TAB Fluticasone Propionate (Flonase Nasal Elwin) 120 Sprays/6000 Mcg Inha 2 SPRAYS NA DAILY for 30 Days, 3 Refills Gemfibrozil (Lopid) 600 Mg Tab 600 MG PO BIDM, 0 Refills Levothyroxine Sodium (Synthroid) 125 Mcg Tab 1 TAB PO DAILY for 30 Days, #30 TAB 5 Refills Multivitamin (Multivitamin) Tab 1 TAB PO DAILY, 0 Refills Nitroglycerin (Nitrostat) 0.4 Mg Tab 0.4 MG UT PRN, 0 Refills Ranitidine Hcl (Zantac) 300 Mg Tab 300 MG PO DAILY, TAB Admission Information HPI (per Admitting provider): Patient seen and examined. 81 year old male with PMHx of CAD s/p CABG s/p stents , H/O TIA, GERD, Hypothyrodism, SA node dysfunction s/p pacemaker, BPH and HLD presents to the ED complaining of chest pain x 2 days. Patient states he has been getting diffuse chest pressure with radiation to the throat since yesterday. The pain usually comes with eating or walking. He has associated SOB , and dizziness. He rates the pain as a 2-3/10 and it usually lasts for 30- 45minutes and resolves spontaneously. He tried nitro at home which didn't help. He tried antacids at home which did help. These symptoms made his worried and he decided to come to the ED. He denies fevers, chills, URI symptoms, palpitations, nausea, vomiting, diarrhea, dysuria, calf pain and edema. In the ED BP is elevated, VS are otherwise stable, Geremias are negative x 1, EKG is nonischemic. DDimer is negative. Patient is chest pain free. He will be observed for further workup and treatment. Physical Exam (per Admitting): General Appearance: + pertinent finding (Very pleasant WD/WN 81 year old male lying in bed in NAD with at bedside ) Head: normocephalic, atraumatic Eyes: PERRL, EOMI, sclerae normal ENT: hearing grossly normal, pharynx normal Neck: supple, no JVD, trachea midline Respiratory/Chest: chest non-tender, lungs clear, normal breath sounds, no respiratory distress, no accessory muscle use Cardiovascular: regular rate, rhythm, no edema, no gallop, no JVD, no murmur , normal peripheral pulses Abdomen/GI: normal bowel sounds, non tender, soft Back: normal inspection, no muscle spasm Extremities/Musculoskelatal: no calf tenderness, normal capillary refill, no pedal edema Neurologic/Psych: alert, oriented x 3, + pertinent finding (no motor or sensory deficits noted on gross exam ) Skin: normal color, warm/dry, no rash Lymphatic: no adenopathy Hospital Course Assessment and Plan: 81 year old male presents to the ED complaining of chest pain, worst with eating and walking. Nitro does not help. Antacids do. Workup negative thus far CHEST PAIN, Atypical: Likely GERD vs musculoskeletal. Less likely to be cardiac after a detailed H & P -Risk factors:known CAD S/P Failed CABG/Stents, HLD, Age -Continue with Plavix, statin, TRUE ALLERGY TO ASPIRIN -Trop x 2 negative, EKG x 2- no acute ischemic changes, atrial paced rhythm, RBBB, Lipid panel- LDL 70, Echo- EF -55-60%, Gd I diastolic dysfunction, no new wall motion abnormalities -Discussed with cardiology- cleared for discharge -Echo pending to r/o heart wall abnormality -Has TRUE ASPIRIN ALLERGY -Continue Plavix, Statin HYPERTENSION -SBP >170 on presentation, went up to 180s , but now 135/75. -Not on any BP meds at home, states his BP is usually low -? anxiety component contributing -Continue with Xanax SA NODE DYSFUNCTION -S/P pacemaker -interrogate pacemaker ? will defer to cardiology H/O TIA -continue Statin, Plavix GERD -continue Zantac -Added GI cocktail prn to see if it helps HYPOTHYROIDISM -continue Synthroid HLD -continue Statin BPH -continue Proscar DVT PROPHYLAXIS: Sq Lovenox CODE STATUS: FULL CODE DISPO:observation status Cleared by cardiology for discharge Ok to discharge home today Total time spent on discharge = 25 minutes This includes examination of the patient, discharge planning, medication reconciliation, and communication with other providers. Discharge Instructions Activity Recommendations Activity Limitations: resume your previous activity . Instructions / Follow-Up Instructions / Follow-Up No changes in medications FOLLOW UP: Follow up Dr Mckeon 10/08/16 at 10:50 AM Current Hospital Diet Patient's current hospital diet: AHA Diet (Heart Healthy) Discharge Diet Recommended Diet: AHA Diet (Heart Healthy) Pending Studies Studies pending at discharge: no Laboratory Results Lipid Panel Test 10/01/16 01:58 Range/Units Triglycerides Level 62 0-150 mg/dl Cholesterol Level 128 0-200 mg/dl HDL Cholesterol 45 mg/dl Cholesterol/HDL Ratio 2.8 LDL Cholesterol, Calculated 71 mg/dl Medical Emergencies . Who to Call and When: Medical Emergencies: If at any time you feel your situation is an emergency, please call 911 immediately. . Non-Emergent Contact Non-Emergency issues call your: Primary Care Provider . . "Provider Documentation" section prepared by April Harrington. VTE Core Measure Inpt VTE Proph given/why not?: Enoxaparin (Lovenox)SQ
[2016-10-01] MEDS: CLOPIDOGREL BISULFATE 75 MG TAB PO SCH (15:29)
[2016-10-01 15:46] VITALS: BP 129/66; PULSE 75; TEMP 36.6; O2SAT 92
[2016-10-01 17:21] VITALS: BP 129/66; PULSE 75; TEMP 36.6; O2SAT 92
== END 2016-10-01 18:09 | disposition home or self-care (01) ==
LOC: ENRESERVDT → ENRESERVTM → C.EDB 18:35 → C.2T 20:04
PROVIDERS: ADMIT Hospitalist; ATTEND Internal Medicine
DX: R07.89 Other chest pain (principal); E03.9 Hypothyroidism, unspecified; E78.5 Hyperlipidemia, unspecified; F41.9 Anxiety disorder, unspecified; I10 Essential (primary) hypertension; I25.10 Atherosclerotic heart disease of native coronary artery without angina pectoris; I45.10 Unspecified right bundle-branch block; I49.5 Sick sinus syndrome; K21.9 Gastro-esophageal reflux disease without esophagitis; N40.0 Benign prostatic hyperplasia without lower urinary tract symptoms; Z86.73 Personal history of transient ischemic attack (TIA), and cerebral infarction without residual deficits; Z95.0 Presence of cardiac pacemaker; Z95.1 Presence of aortocoronary bypass graft; E73.9 Lactose intolerance, unspecified; I05.9 Rheumatic mitral valve disease, unspecified; Z83.3 Family history of diabetes mellitus

== ENCOUNTER → 2017-03-16 | Outpatient (CLI) | payer OTHER ==
[~2017-03-16] MED LIST changes: -FLX10 PO; -PANT40TA PO
== END | disposition home or self-care (01) ==
LOC: C.LAB 11:06
PROVIDERS: ATTEND Urology
DX: N40.1 Benign prostatic hyperplasia with lower urinary tract symptoms (principal); R31.29 Other microscopic hematuria; R97.20 Elevated prostate specific antigen [PSA]

== ENCOUNTER → 2017-09-23 | Outpatient (CLI) | payer OTHER | END | disposition home or self-care (01) | LOC: C.LAB 09:14 | PROVIDERS: ATTEND Urology | DX: R31.29 Other microscopic hematuria (principal) ==

== ENCOUNTER → 2017-11-24 | Outpatient (CLI) | payer OTHER | END | disposition home or self-care (01) | LOC: C.PATHSPEC 17:24 | PROVIDERS: ATTEND Physician Assistant | DX: L57.0 Actinic keratosis (principal) ==

== ENCOUNTER → 2017-12-14 | Outpatient (CLI) | payer OTHER | END | disposition home or self-care (01) | LOC: C.PATHSPEC 17:45 | PROVIDERS: ATTEND Plastic Surgery | DX: L57.0 Actinic keratosis (principal) ==

== ENCOUNTER → 2018-03-22 | Outpatient (CLI) | payer OTHER | END | disposition home or self-care (01) | LOC: C.LAB 10:28 | PROVIDERS: ATTEND Urology | DX: R97.20 Elevated prostate specific antigen [PSA] (principal) ==

== ENCOUNTER → 2018-03-29 | Outpatient (CLI) | payer OTHER ==
[~2018-03-29] MED LIST changes: -GEMF600T3 PO; +GEMF600T5 PO
== END | disposition home or self-care (01) ==
LOC: C.LABSPEC 17:10
PROVIDERS: ATTEND Urology
DX: N21.0 Calculus in bladder (principal); N39.0 Urinary tract infection, site not specified; N40.1 Benign prostatic hyperplasia with lower urinary tract symptoms; R35.1 Nocturia; R97.20 Elevated prostate specific antigen [PSA]

== ENCOUNTER 2020-04-22 12:56 | Inpatient (IN) ==
[2020-04-22] MEDS ORDERED: FAMOTIDINE 20MG IV PUSH 20 MG/5 ML SYR IV STA (14:41)
[2020-04-22] MEDS ORDERED: SODIUM CHLORIDE 0.9% 500 ML IV ONE (14:41)
[2020-04-22 14:50] LABS: Basophils # (auto) 0.02 K/uL (0-0.2); Basophils % (auto) 0.3 %; Eosinophils # (auto) 0.02 K/uL (0-0.5); Eosinophils % (auto) 0.3 %; Hematocrit (blood only) 29.7 % (42-52); Hemoglobin 9.3 g/dL (14.0-18.0); Immature Granulocytes # (auto) 0.04 K/uL (0.00-0.02); Immature Granulocytes % (auto) 0.5 %; Lymphocytes # (auto) 0.68 K/uL (1.2-3.4); Lymphocytes % (auto) 8.8 %; Mean Corpuscular Hemoglobin 30.4 pg (25-34); Mean Corpuscular Hgb Conc 31.3 g/dL (32-36); Mean Corpuscular Volume 97.1 fL (80-100); Mean Platelet Volume 9.1 fL (7.4-10.4); Monocytes # (auto) 0.58 K/uL (0.11-0.59); Monocytes % (auto) 7.5 %; Neutrophils # (auto) 6.38 K/uL (1.4-6.5); Neutrophils % (auto) 82.6 %; Platelet Count 540 K/uL (130-400); RDW Coefficient of Variation 15.1 % (11.5-14.5); RDW Standard Deviation 53.9 fL (36.4-46.3); Red Blood Count 3.06 M/uL (4.7-6.1); White Blood Count 7.72 K/uL (4.8-10.8)
[2020-04-22 15:00] LABS: INR 1.3 (0.9-1.1); Prothrombin Time 13.7 Seconds (9.0-12.0)
[2020-04-22 15:12] LABS: Alanine Aminotransferase 14 U/L (12-78); Albumin Globulin Ratio 0.7 (0.9-2); Albumin Level 3.1 gm/dl (3.4-5.0); Aspartate Aminotransferase 17 U/L (15-37); BUN Creatinine Ratio 11.8 (10-20); Bilirubin Direct < 0.1 mg/dl (0-0.2); Bilirubin,Total 0.4 mg/dl (0.2-1); Blood Urea Nitrogen 19 mg/dl (7-18); Calcium 9.3 mg/dl (8.5-10.1); Carbon Dioxide 27 mmol/L (21-32); Chloride 104 mmol/L (98-107); Est GFR (African American) 45.2; Globulin 4.2 gm/dl (2.5-4.0); Glucose 101 mg/dl (70-99); Lipase 375 U/L (73-393); Magnesium 2.2 mg/dl (1.8-2.4); Potassium 4.7 mmol/L (3.5-5.1); Sodium 138 mmol/L (136-145); Total Protein 7.3 gm/dl (6.4-8.2)
[2020-04-22 15:19] LABS: Alkaline Phosphatase 160 U/L (45-117); Phosphorus 3.3 mg/dl (2.5-4.9); Troponin I < 0.015 ng/ml (0-0.045)
--- NOTE | 2020-04-22 16:35 | CT Scan Report ---
CT soft tissue neck wo con HISTORY: 84 years-old Male nausea, abd pain, bloating acute neck pain with dysphasia. COMPARISON: Chest CT of same day TECHNIQUE: Multiple axial CT images of the soft tissues of the neck were obtained without the use of IV contrast. A dose lowering technique was used consistent with the principals of MIGUE. FINDINGS: The nasopharynx, oral pharynx and hypopharynx are patent. Unremarkable epiglottis, glottis and subglo ttic airway. No large thyroid nodule. The parapharyngeal fat planes are symmetric and well-maintained . No drainable fluid collection or mucosal mass. The parotid and submandibular glands are unremarkabl e. Mild calcified plaque of the left carotid bulb. No adenopathy. Streak artifact from dental amalgam hardware limits evaluation of the adjacent tissues. Multilevel degenerative changes of the cervical spine. Mastoid air cells are clear. Rightward bowing and spurring of the nasal septum. IMPRESSION: 1. Unremarkable appearance of the soft tissues of the neck. 2. No adenopathy or drainable fluid collection. ACT 112: Negative or not required by law. The above report was generated using voice recognition software. It may contain grammatical, syntax o r spelling errors. Electronically signed by: Umesh Rocha M.D. 04/22/2020 4:34 PM
--- NOTE | 2020-04-22 16:43 | CT Scan Report ---
CT SCAN OF THE CHEST, ABDOMEN, AND PELVIS WITHOUT IV CONTRAST CLINICAL HISTORY: Nausea. Generalized abdominal pain. Bloating. COMPARISON STUDY: Chest x-ray dated 04/18/2020. Renal ultrasound dated 08/04/2015. TECHNIQUE: CT scan of the chest, abdomen, and pelvis was performed from the thoracic inlet to the pro ximal femora. Images are reviewed in the axial, sagittal, and coronal planes. IV contrast 9 was admin istered as per the referring clinician. Note that the examination was performed in significantly subo ptimal fashion without IV contrast. A dose lowering technique was utilized adhering to the principle s of ALARA. CT DOSE: 1122.83 mGy.cm FINDINGS: CHEST: Thyroid: Atrophic. Thoracic aorta: The thoracic aorta is normal in caliber and demonstrates standard 3-vessel arch anato my. Heart: The patient is status post midline sternotomy. A 2-lead cardiac pacemaker is present in the le ft chest wall. The heart is mildly enlarged and without pericardial effusion. The coronary arteries a re densely calcified. Lungs and pleural spaces: Minimal secretions are noted in the trachea. There is bibasilar scarring/at electasis. There is no airspace consolidation typical for pneumonia or pleural effusion. Mediastinum: There is no mediastinal lymphadenopathy. Yu: Not well evaluated without IV contrast. Axillae: There is no axillary lymphadenopathy. Bony thorax: The skeletal structures are osteopenic. Degenerative change and hyperkyphosis is noted i n the thoracic spine. Mild compression deformities are noted in the upper thoracic spine. There is ch ronic posttraumatic deformity of the left clavicle as well as healed bilateral rib fractures. No lyti c or blastic lesions are identified. ABDOMEN AND PELVIS: Liver: The unenhanced liver is normal in size, contour, and attenuation. There is no intrahepatic cathy iary ductal dilatation. Scattered hepatic cysts measure up to 3.3 cm. Gallbladder: Unremarkable. Spleen: Normal in size and attenuation. Pancreas: The unenhanced pancreas is mildly atrophic and grossly unremarkable. Adrenal glands: Unremarkable. Kidneys: The unenhanced kidneys demonstrate cortical atrophy. There is a 10 mm obstructing calculus i n the distal right ureter seen on image [id number]. This is located just above the vesicoureteral junction a nd causes moderate right hydroureteronephrosis. No additional right renal calculi are clearly identif ied. There is no left-sided hydronephrosis. No left renal calculi are identified. Scattered renal cys ts measure up to 3 cm. Additional subcentimeter cortical hypodensities and hyperdensity is also likel y represent cysts but are too small for definitive characterization. A retroaortic left renal vein is incidentally noted. Abdominal vasculature: The abdominal aorta is normal in course and caliber noting moderate atheroscle rotic calcification. Bowel: There is no bowel obstruction. Mild fecal retention is noted throughout the colon. The appendi x is well-visualized and normal. Peritoneum: There is no intraperitoneal free air or abdominal ascites. Lymphadenopathy: None. Pelvic viscera: The prostate gland is enlarged and heterogeneous noting median lobe hypertrophy. A Fo yesy catheter is in place. The bladder moderately distended. The wall is thickened and trabeculated in dicating chronic outlet obstruction. Foci of intraluminal gas are likely related to instrumentation. There are at least 4 large bladder calculi measuring up to 1.8 cm. Skeletal structures: The skeletal structures are osteopenic. There is mild to moderate lumbosacral sp ondylosis. A 13 mm sclerotic focus in the left iliac wing likely represents a bone island. No lytic o r blastic lesions are seen. IMPRESSION: 1. No active disease in the chest. 2. Mild cardiac enlargement and cardiac pacemaker. 3. A 10 mm obstructing calculus is present in the distal right ureter just above the vesicoureteral j unction. This causes moderate right hydroureteronephrosis. 4. No additional calculi are clearly identified in either kidney. 5. Prostatomegaly with evidence of chronic bladder outlet obstruction. 6. There are several large bladder stones. 7. Additional findings as above. ACT 112: Negative or not required by law. Electronically signed by: Ludwin Agosto M.D. 04/22/2020 4:42 PM
--- NOTE | 2020-04-22 17:04 | Emergency Department Note ---
Impression & Plan Hydronephrosis due to obstruction of ureter, GERD (gastroesophageal reflux disease), Ureterolithiasis, Nausea, Freitas catheter in place ED Provider Note NAME: AIDEN VENCES AGE: 84 SEX: M ARRIVES VIA: Walk-In INFORMANT: Patient, ED PROVIDER(S): Emilio Forrest MD CHIEF COMPLAINT: Trouble swallowing solid food PLAN: Disposition: Admit MEDICAL DECISION MAKING: The patient is a pleasant 84-year-old gentleman with a past medical history of CAD, BPH, hypertension, hyperlipidemia, sick sinus syndrome status post PPM, CAD status post PCI who presents emergency department for evaluation of difficulty swallowing solid food which she reports has been ongoing for the past several weeks seen by his PCP today and referred to the emergency department after having blood work and chest x-ray. Patient reports that he was instructed to be admitted for EGD. However he does report that he is able to tolerate liquids without difficulty. He denies any fevers, chills, cough, congestion. He does admit to feeling some bloatedness in the stomach and reports chest pain when he swallows. Of note, he was seen in the emergency department several days ago after having syncope which was thought to be related to a potential urinary tract infection and had completed Cipro. On arrival the patient is in no acute distress, afebrile stable vital signs. He appears clinically dry. Abdomen is benign. WBC within normal limits. H/H 9.3/20.7 similar to prior values. Platelets at 540, nonspecific and similar to prior. INR 1.3 similar to prior. Creatinine 1.58 within prior range of values. No metabolic acidosis. Electrolytes and LFTs unremarkable. Troponin negative/undetectable. CT scan of the soft tissue neck, chest did not demonstrate any acute findings to explain the patient's symptoms. Interestingly, CT abdomen pelvis demonstrates a 10 mm obstructing right ureteral stone near the UVJ with mild associated hydronephrosis. This was reviewed with the patient and daughter at bedside. He denies feeling any flank pain but while initially denied fever, then related he had temp of 100.4 last night. Thus, given his recent uti, we agreed to proceed with admission, blood cx and repeat urine after changing freitas catheter. Patient was given empiric CTX. Case was discussed with Moira Padilla [facility] PAC, with Dr. Akhtar [facility] ist who will evaluate the patient for admission. Triage Nursing notes reviewed and agree them. Additional history obtained from daughter Prior medical records reviewed Vital Signs: reviewed and remarkable for no significant abnormalities Differential diagnosis: Cardiac ischemia, aortic dissection, pulmonary embolism, pneumothorax, pneumonia, pericarditis, myocarditis, esophageal rupture, GERD, cholecystitis, pancreatitis, musculoskeletal, as well as other pathologies. ER treatment provided: See below. Diagnostics interpreted by me: ECG: Atrial paced rhythm, 61 bpm, no ectopy, right bundle branch block, no overt acute ischemia. Similar to April 18, 2020. Cardiac Monitoring: An order for continuous cardiac monitoring was placed and demonstrated Atrial paced rhythm, 61 bpm, no ectopy Laboratory studies: See below Imaging studies: CT soft tissue neck wo con HISTORY: 84 years-old Male nausea, abd pain, bloating acute neck pain with dysphasia. COMPARISON: Chest CT of same day TECHNIQUE: Multiple axial CT images of the soft tissues of the neck were obt ained without the use of IV contrast. A dose lowering technique was used consistent with the principals of ALARA. FINDINGS: The nasopharynx, oral pharynx and hypopharynx are patent. Unremarkable epig lottis, glottis and subglottic airway. No large thyroid nodule. The parapharyngeal fat planes are symmetric and well-maintained. No drainable fluid collection or mucosal mass. The parotid and submandibular glands are unremarkable. Mild calcified plaque of the left carotid bulb. No adenopathy. Streak artifact from dental amalgam hardware limits evaluation of the adjacent tissues. Multilevel degenerative changes of the cervical spine. Mastoid air cells are clear. Rightward bowing and spurring of the nasal septum. IMPRESSION: 1. Unremarkable appearance of the soft tissues of the neck. 2. No adenopathy or drainable fluid collection. CT SCAN OF THE CHEST, ABDOMEN, AND PELVIS WITHOUT IV CONTRAST CLINICAL HISTORY: Nausea. Generalized abdominal pain. Bloating. COMPARISON STUDY: Chest x-ray dated 04/18/2020. Renal ultrasound dated 08/04/2015. TECHNIQUE: CT scan of the chest, abdomen, and pelvis was performed from the thoracic inlet to the proximal femora. Images are reviewed in the axial, sagittal, and coronal planes. IV contrast 9 was administered as per the referring clinician. Note that the examination was performed in significantly suboptimal fashion without IV contrast. A dose lowering technique was utilized adhering to the principles of ALARA. CT DOSE: 1122.83 mGy.cm FINDINGS: CHEST: Thyroid: Atrophic. Thoracic aorta: The thoracic aorta is normal in caliber and demonstrates standard 3-vessel arch anatomy. Heart: The patient is status post midline sternotomy. A 2-lead cardiac pacemaker is present in the left chest wall. The heart is mildly enlarged and without pericardial effusion. The coronary arteries are densely calcified. Lungs and pleural spaces: Minimal secretions are noted in the trachea. There is bibasilar scarring/atelectasis. There is no airspace consolidation typical for pneumonia or pleural effusion. Mediastinum: There is no mediastinal lymphadenopathy. Yu: Not well evaluated without IV contrast. Axillae: There is no axillary lymphadenopathy. Bony thorax: The skeletal structures are osteopenic. Degenerative change and hyperkyphosis is noted in the thoracic spine. Mild compression deformities are noted in the upper thoracic spine. There is chronic posttraumatic deformity of the left clavicle as well as healed bilateral rib fractures. No lytic or blastic lesions are identified. ABDOMEN AND PELVIS: Liver: The unenhanced liver is normal in size, contour, and attenuation. There is no intrahepatic biliary ductal dilatation. Scattered hepatic cysts measure up to 3.3 cm. Gallbladder: Unremarkable. Spleen: Normal in size and attenuation. Pancreas: The unenhanced pancreas is mildly atrophic and grossly unremarkable. Adrenal glands: Unremarkable. Kidneys: The unenhanced kidneys demonstrate cortical atrophy. There is a 10 mm obstructing calculus in the distal right ureter seen on image [id number]. This is located just above the vesicoureteral junction and causes moderate right hydroureteronephrosis. No additional right renal calculi are clearly identified. There is no left-sided hydronephrosis. No left renal calculi are identified. Scattered renal cysts measure up to 3 cm. Additional subcentimeter cortical hypodensities and hyperdensity is also likely represent cysts but are too small for definitive characterization. A retroaortic left renal vein is incidentally noted. Abdominal vasculature: The abdominal aorta is normal in course and caliber noting moderate atherosclerotic calcification. Bowel: There is no bowel obstruction. Mild fecal retention is noted throughout the colon. The appendix is well-visualized and normal. Peritoneum: There is no intraperitoneal free air or abdominal ascites. Lymphadenopathy: None. Pelvic viscera: The prostate gland is enlarged and heterogeneous noting median lobe hypertrophy. A Freitas catheter is in place. The bladder moderately distended. The wall is thickened and trabeculated indicating chronic outlet obstruction. Foci of intraluminal gas are likely related to instrumentation. There are at least 4 large bladder calculi measuring up to 1.8 cm. Skeletal structures: The skeletal structures are osteopenic. There is mild to moderate lumbosacral spondylosis. A 13 mm sclerotic focus in the left iliac wing likely represents a bone island. No lytic or blastic lesions are seen. IMPRESSION: 1. No active disease in the chest. 2. Mild cardiac enlargement and cardiac pacemaker. 3. A 10 mm obstructing calculus is present in the distal right ureter just above the vesicoureteral junction. This causes moderate right hydroureteronephrosis. 4. No additional calculi are clearly identified in either kidney. 5. Prostatomegaly with evidence of chronic bladder outlet obstruction. 6. There are several large bladder stones. 7. Additional findings as above. Consultation(s): Case was discussed with Pauly Villatoro, with Dr. Giovana Coats hospitalist who will evaluate the patient for admission. HPI: The patient is a pleasant 84-year-old gentleman with a past medical history of CAD, BPH, hypertension, hyperlipidemia, sick sinus syndrome status post PPM, CAD status post PCI who presents emergency department for evaluation of difficulty swallowing solid food which she reports has been ongoing for the past several weeks seen by his PCP today and referred to the emergency department after having blood work and chest x-ray. Patient reports that he was instructed to be admitted for EGD. However he does report that he is able to tolerate liquids without difficulty. He denies any fevers, chills, cough, congestion. He does admit to feeling some bloatedness in the stomach and reports chest pain when he swallows. Of note, he was seen in the emergency department several days ago after having syncope which was thought to be related to a potential urinary tract infection and had completed Cipro. ROS: See above HPI for pertinent positives & negatives. A total of 10 systems reviewed and were otherwise negative. PAST MEDICAL HISTORY:See Below PAST SURGICAL HISTORY:See Below FAMILY HISTORY:See Below SOCIAL HISTORY:See Below HOME MEDICATIONS:See Below ALLERGIES:See Below VITALS:See Below PHYSICAL EXAMINATION: GENERAL: Awake, alert, fatigued-appearing, in no distress HENT: Normocephalic, atraumatic. Oropharynx with dry mucous membranes and otherwise unremarkable. EYES: Normal conjunctiva. Sclera non-icteric. NECK: Supple. No nuchal rigidity. FROM. No JVD. RESPIRATORY: Clear to auscultation. CARDIAC: Regular rate, normal rhythm. Extremities warm and well perfused. Pulses equal. ABDOMEN: Soft, non-distended. No tenderness to palpation. No rebound or guarding. No masses. RECTAL: Deferred. MUSCULOSKELETAL: Chest examination reveals no tenderness. The back is symmetrical on inspection without obvious abnormality. There is no CVA tenderness to palpation. No joint edema. LOWER EXTREMITIES: Calves are equal size bilaterally and non-tender. No edema. No discoloration. NEURO: Normal sensorium. No sensory or motor deficits noted. SKIN: No rash or jaundice noted. Emilio Forrest MD Past Med/Surg History Social History Smoking Status: Never smoker Do You Dip or Chew Tobacco: No; Hx Alcohol Use: No Hx Substance Use: No Preferred Language: Grenadian Communication Ability: Effective Adult Care Provider Required: No Beliefs That Will Affect Care: None Current Living Situation: Spouse Feels Safe at Home: Yes Allergies Allergies Allergy/AdvReac Type Severity Reaction Status Date / Time aspirin Allergy Severe HIVES/ANGIO Verified 04/22/20 18:29 EDEMA cilostazol Allergy Unknown Unknown Verified 04/22/20 18:29 lactose AdvReac Mild GI SYMPTOMS Verified 04/22/20 18:29 Home Meds Home Medications Medication Instructions Recorded Confirmed atorvastatin 80 mg tablet 80 mg PO 02/04/20 04/22/20 clopidogrel 75 mg tablet 75 mg PO DAILY 02/04/20 04/22/20 fluticasone propionate 50 2 sprays [facility] 02/04/20 04/22/20 mcg/actuation nasal spray,suspension gemfibrozil 600 mg tablet 600 mg PO BID 02/04/20 04/22/20 levothyroxine 125 mcg capsule 125 mcg PO [facility] 02/04/20 04/22/20 nitroglycerin 0.4 mg sublingual 0.4 mg SL DIRECTED PRN 02/04/20 04/22/20 tablet ascorbic acid (vitamin C) 1,000 mg PO QAM 04/14/20 04/22/20 tamsulosin 0.4 mg PO 04/14/20 04/22/20 acetaminophen 650 mg PO Q4H PRN MDD 3 GMS 04/15/20 04/22/20 APAP/24 HOURS alprazolam [Xanax] 0.25 mg PO Q12 PRN 04/15/20 04/22/20 alum-mag hydroxide-simeth [Mylanta 10 ml PO Q4H PRN 04/15/20 04/22/20 Maximum Strength] amoxicillin 2,000 mg PO DIRECTED PRN 04/15/20 04/22/20 calcium carbonate [Tums 500] 1,000 mg PO Q6H PRN 04/15/20 04/22/20 famotidine 20 mg PO Q12H 04/15/20 04/22/20 ferrous sulfate 325 mg PO BID 04/15/20 04/22/20 finasteride [Proscar] 5 mg PO QAM 04/15/20 04/22/20 multivitamin with minerals 1 tab PO QAM 04/15/20 04/22/20 [Multiple Vitamin-Minerals] ondansetron HCl 4 mg PO Q4H PRN 04/15/20 04/22/20 pantoprazole [Protonix] 40 mg PO QAM 04/15/20 04/22/20 sennosides [senna] 17.2 mg PO HS 04/15/20 04/22/20 tramadol [Ultram] 50 mg PO Q6H PRN 04/15/20 04/22/20 Results & Data (ED) Vital Signs Vital Signs - 24 hr 04/22/20 13:09 04/22/20 14:20 04/22/20 14:22 Temperature 36.6 C Temperature Source Oral Pulse Rate 64 60 Pulse Rate [Apical] 62 Pulse Rate from SpO2 Sensor 60 Pulse Rhythm [Apical] Regular Pulse Strength [Apical] Normal Respiratory Rate 18 21 20 Respiratory Effort / Characteristics Non-Labored Spontaneous Respiratory Depth Normal Respiratory Pattern Regular Blood Pressure 138/54 L 138/73 Blood Pressure [Right Arm] 138/73 Blood Pressure Mean 82 92 Blood Pressure Mean [Right Arm] 94 Blood Pressure Position [Right Arm] Lying Pulse Oximetry 97 95 94 Oxygen Delivery Method Room Air Room Air Sepsis Recent Fever Within 48 Hours No Sepsis New/Unexplained Change in Mental Status No Sepsis Action Taken by Nursing No Action Required 04/22/20 14:24 04/22/20 14:30 04/22/20 14:40 Temperature Temperature Source Pulse Rate 60 64 66 Pulse Rate [Apical] Pulse Rate from SpO2 Sensor 59 L Pulse Rhythm [Apical] Pulse Strength [Apical] Respiratory Rate 24 14 18 Respiratory Effort / Characteristics Respiratory Depth Respiratory Pattern Blood Pressure Blood Pressure [Right Arm] Blood Pressure Mean Blood Pressure Mean [Right Arm] Blood Pressure Position [Right Arm] Pulse Oximetry 97 Oxygen Delivery Method Sepsis Recent Fever Within 48 Hours Sepsis New/Unexplained Change in Mental Status Sepsis Action Taken by Nursing 04/22/20 14:51 04/22/20 15:00 04/22/20 15:10 Temperature Temperature Source Pulse Rate 60 60 60 Pulse Rate [Apical] Pulse Rate from SpO2 Sensor Pulse Rhythm [Apical] Pulse Strength [Apical] Respiratory Rate 15 15 0 L Respiratory Effort / Characteristics Respiratory Depth Respiratory Pattern Blood Pressure Blood Pressure [Right Arm] Blood Pressure Mean Blood Pressure Mean [Right Arm] Blood Pressure Position [Right Arm] Pulse Oximetry Oxygen Delivery Method Sepsis Recent Fever Within 48 Hours Sepsis New/Unexplained Change in Mental Status Sepsis Action Taken by Nursing 04/22/20 15:21 04/22/20 15:30 04/22/20 15:40 Temperature Temperature Source Pulse Rate 62 60 60 Pulse Rate [Apical] Pulse Rate from SpO2 Sensor Pulse Rhythm [Apical] Pulse Strength [Apical] Respiratory Rate 16 20 16 Respiratory Effort / Characteristics Respiratory Depth Respiratory Pattern Blood Pressure Blood Pressure [Right Arm] Blood Pressure Mean Blood Pressure Mean [Right Arm] Blood Pressure Position [Right Arm] Pulse Oximetry Oxygen Delivery Method Sepsis Recent Fever Within 48 Hours Sepsis New/Unexplained Change in Mental Status Sepsis Action Taken by Nursing 04/22/20 15:51 04/22/20 16:00 04/22/20 16:20 Temperature Temperature Source Pulse Rate 60 60 61 Pulse Rate [Apical] 61 Pulse Rate from SpO2 Sensor 61 Pulse Rhythm [Apical] Regular Pulse Strength [Apical] Normal Respiratory Rate 17 18 21 Respiratory Effort / Characteristics Non-Labored Spontaneous Respiratory Depth Normal Respiratory Pattern Regular Blood Pressure 141/69 H Blood Pressure [Right Arm] 141/69 H Blood Pressure Mean 96 Blood Pressure Mean [Right Arm] 93 Blood Pressure Position [Right Arm] Semi-fowlers Pulse Oximetry 98 Oxygen Delivery Method Room Air Sepsis Recent Fever Within 48 Hours Sepsis New/Unexplained Change in Mental Status Sepsis Action Taken by Nursing 04/22/20 16:30 04/22/20 16:32 04/22/20 16:40 Temperature Temperature Source Pulse Rate 61 60 62 Pulse Rate [Apical] Pulse Rate from SpO2 Sensor 61 60 62 Pulse Rhythm [Apical] Pulse Strength [Apical] Respiratory Rate 21 16 14 Respiratory Effort / Characteristics Respiratory Depth Respiratory Pattern Blood Pressure 141/69 H Blood Pressure [Right Arm] Blood Pressure Mean 98 Blood Pressure Mean [Right Arm] Blood Pressure Position [Right Arm] Pulse Oximetry 93 94 96 Oxygen Delivery Method Sepsis Recent Fever Within 48 Hours Sepsis New/Unexplained Change in Mental Status Sepsis Action Taken by Nursing 04/22/20 16:50 04/22/20 17:00 04/22/20 17:01 Temperature Temperature Source Pulse Rate 60 61 60 Pulse Rate [Apical] Pulse Rate from SpO2 Sensor 60 60 60 Pulse Rhythm [Apical] Pulse Strength [Apical] Respiratory Rate 18 12 15 Respiratory Effort / Characteristics Respiratory Depth Respiratory Pattern Blood Pressure 136/63 Blood Pressure [Right Arm] Blood Pressure Mean 98 Blood Pressure Mean [Right Arm] Blood Pressure Position [Right Arm] Pulse Oximetry 93 97 94 Oxygen Delivery Method Sepsis Recent Fever Within 48 Hours Sepsis New/Unexplained Change in Mental Status Sepsis Action Taken by Nursing 04/22/20 17:10 04/22/20 17:20 04/22/20 17:30 Temperature Temperature Source Pulse Rate 60 61 63 Pulse Rate [Apical] Pulse Rate from SpO2 Sensor 60 62 63 Pulse Rhythm [Apical] Pulse Strength [Apical] Respiratory Rate 15 12 24 Respiratory Effort / Characteristics Respiratory Depth Respiratory Pattern Blood Pressure 146/71 H Blood Pressure [Right Arm] Blood Pressure Mean 109 Blood Pressure Mean [Right Arm] Blood Pressure Position [Right Arm] Pulse Oximetry 98 99 98 Oxygen Delivery Method Sepsis Recent Fever Within 48 Hours Sepsis New/Unexplained Change in Mental Status Sepsis Action Taken by Nursing 04/22/20 17:31 04/22/20 17:40 04/22/20 17:50 Temperature Temperature Source Pulse Rate 66 68 61 Pulse Rate [Apical] Pulse Rate from SpO2 Sensor 66 68 61 Pulse Rhythm [Apical] Pulse Strength [Apical] Respiratory Rate 18 18 16 Respiratory Effort / Characteristics Respiratory Depth Respiratory Pattern Blood Pressure Blood Pressure [Right Arm] Blood Pressure Mean Blood Pressure Mean [Right Arm] Blood Pressure Position [Right Arm] Pulse Oximetry 98 99 98 Oxygen Delivery Method Sepsis Recent Fever Within 48 Hours Sepsis New/Unexplained Change in Mental Status Sepsis Action Taken by Nursing 04/22/20 18:00 04/22/20 18:01 04/22/20 18:10 Temperature Temperature Source Pulse Rate 60 61 60 Pulse Rate [Apical] Pulse Rate from SpO2 Sensor 60 60 60 Pulse Rhythm [Apical] Pulse Strength [Apical] Respiratory Rate 19 22 17 Respiratory Effort / Characteristics Respiratory Depth Respiratory Pattern Blood Pressure 137/67 Blood Pressure [Right Arm] Blood Pressure Mean 104 Blood Pressure Mean [Right Arm] Blood Pressure Position [Right Arm] Pulse Oximetry 96 96 98 Oxygen Delivery Method Sepsis Recent Fever Within 48 Hours Sepsis New/Unexplained Change in Mental Status Sepsis Action Taken by Nursing 04/22/20 18:20 04/22/20 18:30 04/22/20 18:31 Temperature Temperature Source Pulse Rate 61 60 67 Pulse Rate [Apical] Pulse Rate from SpO2 Sensor 61 60 66 Pulse Rhythm [Apical] Pulse Strength [Apical] Respiratory Rate 15 14 19 Respiratory Effort / Characteristics Respiratory Depth Respiratory Pattern Blood Pressure 147/66 H Blood Pressure [Right Arm] Blood Pressure Mean 94 Blood Pressure Mean [Right Arm] Blood Pressure Position [Right Arm] Pulse Oximetry 96 98 99 Oxygen Delivery Method Sepsis Recent Fever Within 48 Hours Sepsis New/Unexplained Change in Mental Status Sepsis Action Taken by Nursing 04/22/20 18:41 04/22/20 18:50 Temperature Temperature Source Pulse Rate 61 70 Pulse Rate [Apical] Pulse Rate from SpO2 Sensor 61 64 Pulse Rhythm [Apical] Pulse Strength [Apical] Respiratory Rate 16 23 Respiratory Effort / Characteristics Respiratory Depth Respiratory Pattern Blood Pressure Blood Pressure [Right Arm] Blood Pressure Mean Blood Pressure Mean [Right Arm] Blood Pressure Position [Right Arm] Pulse Oximetry 95 97 Oxygen Delivery Method Sepsis Recent Fever Within 48 Hours Sepsis New/Unexplained Change in Mental Status Sepsis Action Taken by Nursing Laboratory Data Attestation: I reviewed the patient's lab results. Result diagrams: 04/22/20 14:31 04/22/20 20:56 Lab Results 04/22/20 04/22/20 04/22/20 Range/Units 14:31 14:31 14:31 WBC 7.72 (4.8-10.8) K/uL RBC 3.06 L (4.7-6.1) M/uL Hgb 9.3 L (14.0-18.0) g/dL Hct 29.7 L (42-52) % MCV 97.1 (80-100) fL MCH 30.4 (25-34) pg MCHC 31.3 L (32-36) g/dL RDW Std Deviation 53.9 H (36.4-46.3) fL RDW Coeff of Courtney 15.1 H (11.5-14.5) % Plt Count 540 H (130-400) K/uL MPV 9.1 (7.4-10.4) fL Immature Gran % (Auto) 0.5 % Neut % (Auto) 82.6 % Lymph % (Auto) 8.8 % [place] % (Auto) 7.5 % Eos % (Auto) 0.3 % Baso % (Auto) 0.3 % Neut # (Auto) 6.38 (1.4-6.5) K/uL Lymph # (Auto) 0.68 L (1.2-3.4) K/uL [place] # (Auto) 0.58 (0.11-0.59) K/uL Eos # (Auto) 0.02 (0-0.5) K/uL Baso # (Auto) 0.02 (0-0.2) K/uL Immature Gran # (Auto) 0.04 H (0.00-0.02) K/uL PT 13.7 H (9.0-12.0) Seconds INR 1.3 H (0.9-1.1) APTT 29.0 (21.0-31.0) Seconds PTT Ratio 1.0 Sodium 138 (136-145) mmol/L Potassium 4.7 (3.5-5.1) mmol/L Chloride 104 (98-107) mmol/L Carbon Dioxide 27 (21-32) mmol/L Anion Gap 7.0 (3-11) BUN 19 H (7-18) mg/dl Creatinine 1.58 H (0.6-1.4) mg/dl Est Cr Clr Drug Dosing Not Reportable Est GFR ( Amer) 45.2 Est GFR (Non-Af Amer) 39.0 BUN/Creatinine Ratio 11.8 (10-20) Glucose 101 H (70-99) mg/dl Lactate (0.4-2.0) mmol/L Calcium 9.3 (8.5-10.1) mg/dl Phosphorus 3.3 (2.5-4.9) mg/dl Magnesium 2.2 (1.8-2.4) mg/dl Total Bilirubin 0.4 (0.2-1) mg/dl Direct Bilirubin < 0.1 (0-0.2) mg/dl AST 17 (15-37) U/L ALT 14 (12-78) U/L Alkaline Phosphatase 160 H (45-117) U/L Troponin I < 0.015 (0-0.045) ng/ml Total Protein 7.3 (6.4-8.2) gm/dl Albumin 3.1 L (3.4-5.0) gm/dl Globulin 4.2 H (2.5-4.0) gm/dl Albumin/Globulin Ratio 0.7 L (0.9-2) Lipase 375 (73-393) U/L Procalcitonin (0-0.5) ng/ml TSH 3.660 (0.300-4.500) uIu/ml Urine Color Urine Appearance (Clear) Urine pH (4.5-7.5) Ur Specific [place] (1.000-1.030) Urine Protein (Negative) Urine Glucose (UA) (Negative) Urine Ketones (Negative) Urine Blood (Negative) Urine Nitrite (Negative) Urine Bilirubin (Negative) Urine Urobilinogen (Negative) Ur Leukocyte Esterase (Negative) Urine WBC (Auto) (0-5) /hpf Urine RBC (Auto) (0-4) /hpf U Hyaline Cast (Auto) (0-5) /lpf U Epithel Cells (Auto) (0-5) /lpf Urine Bacteria (Auto) (Negative) 04/22/20 04/22/20 04/22/20 Range/Units 17:50 17:53 18:01 WBC (4.8-10.8) K/uL RBC (4.7-6.1) M/uL Hgb (14.0-18.0) g/dL Hct (42-52) % MCV (80-100) fL MCH (25-34) pg MCHC (32-36) g/dL RDW Std Deviation (36.4-46.3) fL RDW Coeff of Courtney (11.5-14.5) % Plt Count (130-400) K/uL MPV (7.4-10.4) fL Immature Gran % (Auto) % Neut % (Auto) % Lymph % (Auto) % [place] % (Auto) % Eos % (Auto) % Baso % (Auto) % Neut # (Auto) (1.4-6.5) K/uL Lymph # (Auto) (1.2-3.4) K/uL [place] # (Auto) (0.11-0.59) K/uL Eos # (Auto) (0-0.5) K/uL Baso # (Auto) (0-0.2) K/uL Immature Gran # (Auto) (0.00-0.02) K/uL PT (9.0-12.0) Seconds INR (0.9-1.1) APTT (21.0-31.0) Seconds PTT Ratio Sodium (136-145) mmol/L Potassium (3.5-5.1) mmol/L Chloride (98-107) mmol/L Carbon Dioxide (21-32) mmol/L Anion Gap (3-11) BUN (7-18) mg/dl Creatinine (0.6-1.4) mg/dl Est Cr Clr Drug Dosing Est GFR ( Amer) Est GFR (Non-Af Amer) BUN/Creatinine Ratio (10-20) Glucose (70-99) mg/dl Lactate 1.0 (0.4-2.0) mmol/L Calcium (8.5-10.1) mg/dl Phosphorus (2.5-4.9) mg/dl Magnesium (1.8-2.4) mg/dl Total Bilirubin (0.2-1) mg/dl Direct Bilirubin (0-0.2) mg/dl AST (15-37) U/L ALT (12-78) U/L Alkaline Phosphatase (45-117) U/L Troponin I (0-0.045) ng/ml Total Protein (6.4-8.2) gm/dl Albumin (3.4-5.0) gm/dl Globulin (2.5-4.0) gm/dl Albumin/Globulin Ratio (0.9-2) Lipase (73-393) U/L Procalcitonin 0.05 (0-0.5) ng/ml TSH (0.300-4.500) uIu/ml Urine Color Yellow Urine Appearance Clear (Clear) Urine pH 7.0 (4.5-7.5) Ur Specific [place] 1.008 (1.000-1.030) Urine Protein Trace H (Negative) Urine Glucose (UA) Negative (Negative) Urine Ketones Negative (Negative) Urine Blood 1+ H (Negative) Urine Nitrite Negative (Negative) Urine Bilirubin Negative (Negative) Urine Urobilinogen Negative (Negative) Ur Leukocyte Esterase Trace H (Negative) Urine WBC (Auto) 1-5 (0-5) /hpf Urine RBC (Auto) 0-4 (0-4) /hpf U Hyaline Cast (Auto) 1-5 (0-5) /lpf U Epithel Cells (Auto) 10-20 H (0-5) /lpf Urine Bacteria (Auto) Negative (Negative) Administered Medications Dextrose/Sodium Chloride (D5w And Nss) 1,000 mls @ 60 mls/hr IV .[id number] MOMO Stop: 05/22/20 20:29 Last Admin: 04/22/20 21:26 Dose: 60 mls/hr Documented by: [id number] Famotidine 20 mg/ Syringe 5 mls @ 2.5 mls/min IV BID MOMO Stop: 05/22/20 20:59 Last Admin: 04/22/20 21:26 Dose: 2.5 mls/min Documented by: [id number] Discontinued Medications Al Hydrox/Mg Hydrox/Simethicone (Gi Cocktail Ed Use) 1 dose PO ONE ONE Stop: 04/22/20 17:06 Last Admin: 04/22/20 17:30 Dose: 1 dose Documented by: [id number] Sodium Chloride (Nss) 500 mls @ 999 mls/hr IV .Q31M ONE Stop: 04/22/20 15:11 Last Infusion: 04/22/20 16:29 Dose: 0 mls/hr Documented by: [id number] Admin: 04/22/20 15:20 Dose: 999 mls/hr Documented by: [id number] Famotidine (Pepcid 20mg Iv Push) 20 mg in 5 mls @ 2.5 mls/min IV NOW STA Stop: 04/22/20 14:42 Last Admin: 04/22/20 15:20 Dose: 2.5 mls/min Documented by: [id number] Ceftriaxone Sodium (Rocephin) 2,000 mg in 70 mls @ 140 mls/hr IV NOW STA Stop: 04/22/20 18:21 Last Infusion: 04/22/20 19:06 Dose: 0 mls/hr Documented by: [id number] Admin: 04/22/20 18:31 Dose: 140 mls/hr Documented by: [id number] Blood Pressure Blood Pressure Findings: Elevated blood pressure Blood Pressure Disposition: further management by hospitalist Discharge Plan Visit Data Chief Complaint: Referred by Doctor Stated Complaint: TROUBLE SWALLOWING FOOD, REF BY DOCTOR ED Provider: Emilio Forrest Discharge Problem: Hydronephrosis due to obstruction of ureter, GERD (gastroesophageal reflux disease), Ureterolithiasis, Nausea, Freitas catheter in place Patient Disposition: Admitted As Inpatient Discharge Instructions Interventions: ED Discharge Assessment Last Done: 04/22/20 19:58 Discharge Problem: GERD (gastroesophageal reflux disease) Qualifiers: Esophagitis presence: with esophagitis Qualified Code(s): K21.0 - Gastro- esophageal reflux disease with esophagitis
[2020-04-22] MEDS ORDERED: GI COCKTAIL ED USE PO ONE (17:05)
[2020-04-22] MEDS ORDERED: cefTRIAXone SODIUM 2,000 MG/70 ML BAG IV STA (17:52)
[2020-04-22 18:07] LABS: Appearance Urine Clear (Clear); Bacteria Urine Automated Negative (Negative); Bilirubin Urine Negative (Negative); Blood Urine 1+ (Negative); Color Urine Yellow; Glucose Urine UA Negative (Negative); Ketones Urine Negative (Negative); Leukocyte Esterase Urine Trace (Negative); Nitrite Urine Negative (Negative); Protein Urine Trace (Negative); RBC Urine Automated 0-4 /hpf (0-4); Specific Gravity Urine 1.008 (1.000-1.030); Urobilinogen Urine Negative (Negative)
--- NOTE | 2020-04-22 19:54 | History & Physical Report ---
Date of Service April 22, 2020 Assessment & Plan (1) Dysphagia: 84-year-old male with recent bilateral total knee arthroplasty, March 27, 2020, History of CAD, mitral regurgitation, sick sinus syndrome status post pacemaker, CKD stage III, GERD and IBS, BPH, other problems noted below presenting with dysphagia x3 weeks. Dysphagia Rule out esophageal obstruction, dysmotility Started when patient was at rehab post knee surgery, around middle of March, mostly with solids CT head performed April 18, 2020: No acute process Brain MRI could not be performed as patient is on pacemaker N.p.o. for now, crush all meds, IV fluids, GI consult-possible barium swallow versus EGD tomorrow Right ureteral stone with hydronephrosis Received a treatment for presumed UTI started April 18, 2020, urine culture: Positive cocci, 5000 colonies no sensitivities to follow; ciprofloxacin course given at the ER April 18, 2020 Also on Storey catheter for about 2 weeks now for urinary retention noted at rehab Urologist consulted Syncope Scented to ER with syncopal episode last April 18, 2020 felt to be secondary to UTI CT head at that time: No acute process Per patient's daughter, the patient was at the kitchen table, felt lightheaded, became unresponsive, staring for about 4 minutes, clammy, pale before coming around Will do further investigation EEG to rule out seizure Neurology consultation Pacemaker interrogation, echocardiogram Orthostatic vital signs History of CAD Continue Plavix, hold atorvastatin Mitral regurgitation Euvolemic, monitor while on IV fluids Sinus syndrome, status post pacemaker placement Pacemaker interrogation in light of syncope CKD stage III Stable GERD Convert famotidine Protonix to IV BPH Continue finasteride and Flomax Hypothyroidism Continue levothyroxine History of for skin cancer, monoclonal paraproteinemia Out patient follow-up DVT prophylaxis Heparin subcutaneous every 12 hours in light of recent surgery March 27, 2020 Disposition Lives with family at home, patient apparently doing fairly well after rehab, moves around with no assistive device now Order PT and OT when patient is more stable CODE STATUS Full code per patient's daughter at the bedside Plan of care discussed in detail at length with the patient and his daughter at the bedside All questions were answered They are understanding, agreeable, comfortable with the plan of care History of Present Illness 84-year-old male with history of CAD, mitral regurgitation, sick sinus syndrome status post pacemaker, CKD stage III, GERD and IBS, BPH, other problems noted below presenting with dysphagia x3 weeks. Patient underwent a bilateral total knee arthroplasty at [facility] on March 27, 2020. Was then transferred to [facility] for rehab. While at rehab, the patient was noted to have progressive dysphagia mostly with solids, nausea and poor appetite. During rehab stay, patient developed urinary retention and a Storey catheter was placed. Patient was dischargeD from [facility] to home last week of March. April 18, 2020, patient presented to the ER for syncopal episode which was felt to be secondary to UTI and was discharged on Cipro. CT head negative for CVA. At home, the patient continued to have progressive dysphagia, very poor appetite prompting consult to the ER. At the ER, patient received with stable vital signs. CT neck and CT chest and abdomen do not reveal any obstruction. Right ureteral stone measuring 10 mm in size with hydronephrosis was noted. On exam, the patient was seen resting in bed, comfortable, not in distress, oriented x3, answers all questions appropriately. Main symptom is very poor appetite and dysphagia with solids. Denies active shortness of breath, chest pain, palpitations, cough, abdominal pain, fevers or chills, hematuria. No other symptoms. History for supplemented by patient's daughter at the bedside. Primary Care Provider: Darell Mckeon DO Allergies Allergy/AdvReac Type Severity Reaction Status Date / Time aspirin Allergy Severe HIVES/ANGIO Verified 04/22/20 18:29 EDEMA cilostazol Allergy Unknown Unknown Verified 04/22/20 18:29 lactose AdvReac Mild GI SYMPTOMS Verified 04/22/20 18:29 Home Medications Home Medications Medication Instructions Recorded Confirmed Type atorvastatin 80 mg tablet 80 mg PO HS 02/04/20 04/22/20 History clopidogrel 75 mg tablet 75 mg PO DAILY 02/04/20 04/22/20 History fluticasone propionate 50 2 sprays INTNAS QAM 02/04/20 04/22/20 History mcg/actuation nasal spray,suspension gemfibrozil 600 mg tablet 600 mg PO BID 02/04/20 04/22/20 History levothyroxine 125 mcg capsule 125 mcg PO QAM 02/04/20 04/22/20 History nitroglycerin 0.4 mg sublingual 0.4 mg SL DIRECTED PRN 02/04/20 04/22/20 History tablet ascorbic acid (vitamin C) 1,000 mg PO QAM 04/14/20 04/22/20 History tamsulosin 0.4 mg PO HS 04/14/20 04/22/20 History acetaminophen 650 mg PO Q4H PRN MDD 3 GMS 04/15/20 04/22/20 History APAP/24 HOURS alprazolam [Xanax] 0.25 mg PO Q12 PRN 04/15/20 04/22/20 History alum-mag hydroxide-simeth [Mylanta 10 ml PO Q4H PRN 04/15/20 04/22/20 History Maximum Strength] amoxicillin 2,000 mg PO DIRECTED PRN 04/15/20 04/22/20 History calcium carbonate [Tums 500] 1,000 mg PO Q6H PRN 04/15/20 04/22/20 History famotidine 20 mg PO Q12H 04/15/20 04/22/20 History ferrous sulfate 325 mg PO BID 04/15/20 04/22/20 History finasteride [Proscar] 5 mg PO QAM 04/15/20 04/22/20 History multivitamin with minerals 1 tab PO QAM 04/15/20 04/22/20 History [Multiple Vitamin-Minerals] ondansetron HCl 4 mg PO Q4H PRN 04/15/20 04/22/20 History pantoprazole [Protonix] 40 mg PO QAM 04/15/20 04/22/20 History sennosides [senna] 17.2 mg PO HS 04/15/20 04/22/20 History tramadol [Ultram] 50 mg PO Q6H PRN 04/15/20 04/22/20 History Past Med/Surg History Social History Smoking Status: Never smoker Feels Safe at Home: Yes Review of Systems Review of Systems: All systems reviewed & are unremarkable except as noted in HPI & below Physical Exam Physical Exam: General- oriented x 3, not in distress, speaks in sentences with no effort or accessory muscle use Head- atraumatic Eyes- PERRL, EOMI, anicteric ENT- oropharynx clear Neck- supple, no JVD, no adenopathy, no thyromegaly; carotids +2/2, no bruits appreciated Lungs- clear to auscultation bilaterally, no rales/wheezes Heart- normal rate, regular rhythm; no murmur, no gallop, no rub appreciated Abdomen- normal bowel sounds, nondistended, soft, nontender, no masses or hepatosplenomegaly Positive Storey catheter in place with a yellow urine Extremities-bilateral knees: Surgical scar scabbing, healing well, no erythema/warmth/tenderness/edema; no pretibial edema, no calf tenderness; peripheral pulses intact Neuro- alert, oriented x 3; CN 2-12 grossly intact; motor 5/5 bilaterally;s ensation 100% on all extremities; no other gross focal neurologic deficits Skin- warm & dry Results & Data Results & Data ([facility]) Vital Signs (Past 12 Hours) Vital Signs Temp Pulse Pulse Resp BP BP Pulse Ox 04/22/20 18:50 70 23 97 04/22/20 18:41 61 16 95 04/22/20 18:31 67 19 99 04/22/20 18:30 60 14 147/66 H 98 04/22/20 18:20 61 15 96 04/22/20 18:10 60 17 98 04/22/20 18:01 61 22 96 04/22/20 18:00 60 19 137/67 96 04/22/20 17:50 61 16 98 04/22/20 17:40 68 18 99 04/22/20 17:31 66 18 98 04/22/20 17:30 63 24 146/71 H 98 04/22/20 17:20 61 12 99 04/22/20 17:10 60 15 98 04/22/20 17:01 60 15 94 04/22/20 17:00 61 12 136/63 97 04/22/20 16:50 60 18 93 04/22/20 16:40 62 14 96 04/22/20 16:32 60 16 94 04/22/20 16:30 61 21 141/69 H 93 04/22/20 16:20 61 61 21 141/69 H 141/69 H 98 04/22/20 16:00 60 18 04/22/20 15:51 60 17 04/22/20 15:40 60 16 04/22/20 15:30 60 20 04/22/20 15:21 62 16 04/22/20 15:10 60 0 L 04/22/20 15:00 60 15 04/22/20 14:51 60 15 04/22/20 14:40 66 18 04/22/20 14:30 64 14 04/22/20 14:24 60 24 97 04/22/20 14:22 62 20 138/73 94 04/22/20 14:20 60 21 138/73 95 04/22/20 13:09 36.6 C 64 18 138/54 L 97 Laboratory Results Laboratory Results - last 24 hr 04/22/20 04/22/20 04/22/20 14:31 14:31 14:31 WBC 7.72 RBC 3.06 L Hgb 9.3 L Hct 29.7 L MCV 97.1 MCH 30.4 MCHC 31.3 L RDW Std Deviation 53.9 H RDW Coeff of Courtney 15.1 H Plt Count 540 H MPV 9.1 Immature Gran % (Auto) 0.5 Neut % (Auto) 82.6 Lymph % (Auto) 8.8 Campbell % (Auto) 7.5 Eos % (Auto) 0.3 Baso % (Auto) 0.3 Neut # (Auto) 6.38 Lymph # (Auto) 0.68 L Campbell # (Auto) 0.58 Eos # (Auto) 0.02 Baso # (Auto) 0.02 Immature Gran # (Auto) 0.04 H PT 13.7 H INR 1.3 H APTT 29.0 PTT Ratio 1.0 Sodium 138 Potassium 4.7 Chloride 104 Carbon Dioxide 27 Anion Gap 7.0 BUN 19 H Creatinine 1.58 H Est Cr Clr Drug Dosing Not Reportable Est GFR ( Amer) 45.2 Est GFR (Non-Af Amer) 39.0 BUN/Creatinine Ratio 11.8 Glucose 101 H Lactate Calcium 9.3 Phosphorus 3.3 Magnesium 2.2 Total Bilirubin 0.4 Direct Bilirubin < 0.1 AST 17 ALT 14 Alkaline Phosphatase 160 H Troponin I < 0.015 Total Protein 7.3 Albumin 3.1 L Globulin 4.2 H Albumin/Globulin Ratio 0.7 L Lipase 375 Procalcitonin TSH 3.660 Urine Color Urine Appearance Urine pH Ur Specific [place] Urine Protein Urine Glucose (UA) Urine Ketones Urine Blood Urine Nitrite Urine Bilirubin Urine Urobilinogen Ur Leukocyte Esterase Urine WBC (Auto) Urine RBC (Auto) U Hyaline Cast (Auto) U Epithel Cells (Auto) Urine Bacteria (Auto) 04/22/20 04/22/20 04/22/20 17:50 17:53 18:01 WBC RBC Hgb Hct MCV MCH MCHC RDW Std Deviation RDW Coeff of Courtney Plt Count MPV Immature Gran % (Auto) Neut % (Auto) Lymph % (Auto) Campbell % (Auto) Eos % (Auto) Baso % (Auto) Neut # (Auto) Lymph # (Auto) Campbell # (Auto) Eos # (Auto) Baso # (Auto) Immature Gran # (Auto) PT INR APTT PTT Ratio Sodium Potassium Chloride Carbon Dioxide Anion Gap BUN Creatinine Est Cr Clr Drug Dosing Est GFR ( Amer) Est GFR (Non-Af Amer) BUN/Creatinine Ratio Glucose Lactate 1.0 Calcium Phosphorus Magnesium Total Bilirubin Direct Bilirubin AST ALT Alkaline Phosphatase Troponin I Total Protein Albumin Globulin Albumin/Globulin Ratio Lipase Procalcitonin 0.05 TSH Urine Color Yellow Urine Appearance Clear Urine pH 7.0 Ur Specific [place] 1.008 Urine Protein Trace H Urine Glucose (UA) Negative Urine Ketones Negative Urine Blood 1+ H Urine Nitrite Negative Urine Bilirubin Negative Urine Urobilinogen Negative Ur Leukocyte Esterase Trace H Urine WBC (Auto) 1-5 Urine RBC (Auto) 0-4 U Hyaline Cast (Auto) 1-5 U Epithel Cells (Auto) 10-20 H Urine Bacteria (Auto) Negative
[2020-04-22] MEDS ORDERED: AMOXICILLIN 500 MG CAP PO PRN (20:30)
[2020-04-22] MEDS ORDERED: ACETAMINOPHEN 1,000 MG/100 ML VIAL IV PRN (20:30)
[2020-04-22 21:20] LABS: Calcium 9.5 mg/dl (8.5-10.1); Creatinine Clr Calc Pharmacy 40.6 ml/min; Est GFR (African American) 47.4; Est GFR (Non-African American) 40.9; Potassium 4.5 mmol/L (3.5-5.1)
[2020-04-22] MEDS: FAMOTIDINE 20 MG in SYRINGE 3 ML IV SCH (21:26)
[2020-04-22] MEDS: D5W AND NSS 1,000 ML IV SCH (21:26)
[2020-04-22] MEDS: HEPARIN SOD 5,000 UNIT/0.5 ML VIAL SQ SCH (21:49)
[2020-04-22] MEDS: TAMSULOSIN HCL 0.4 MG CAP PO SCH (21:49)
[2020-04-23] MEDS: LEVOTHYROXINE SODIUM 125 MCG TABLET PO SCH (06:03)
--- NOTE | 2020-04-23 06:03 | Electrocardiogram Report ---
Test Reason : Blood Pressure : / mmHG Vent. Rate : 061 BPM Atrial Rate : 061 BPM P-R Int : 184 ms QRS Dur : 140 ms QT Int : 458 ms P-R-T Axes : -18 005 004 degrees QTc Int : 461 ms Atrial-paced rhythm Right bundle branch block Cannot rule out Inferior infarct (cited on or before 18-APR-2020) Abnormal ECG When compared with ECG of 18-APR-2020 13:13, Premature ventricular complexes are no longer Present Confirmed by Herbie Frederick ([id number]) on 04/23/2020 6:02:33 AM Referred By: Darell Mckoen Confirmed By:Herbie Frederick
[2020-04-23 07:20] LABS: Mean Corpuscular Hgb Conc 31.6 g/dL (32-36); Mean Platelet Volume 9.3 fL (7.4-10.4); Platelet Count 441 K/uL (130-400)
[2020-04-23 07:53] LABS: BUN Creatinine Ratio 11.9 (10-20); Calcium 8.8 mg/dl (8.5-10.1); Creatinine Clr Calc Pharmacy 41.6 ml/min; Potassium 4.5 mmol/L (3.5-5.1)
[2020-04-23 08:00] LABS: Hematocrit (blood only) 27.5 % (42-52); Hemoglobin 8.7 g/dL (14.0-18.0); Mean Corpuscular Hemoglobin 30.7 pg (25-34); Mean Corpuscular Volume 97.2 fL (80-100); RDW Standard Deviation 53.5 fL (36.4-46.3); Red Blood Count 2.83 M/uL (4.7-6.1); White Blood Count 4.75 K/uL (4.8-10.8)
[2020-04-23 08:01] LABS: ALC (manual) 0.63 K/uL (1.2-3.4); ANC (manual) 3.65 K/uL (1.4-6.5); Basophils # (manual) 0.04 K/uL (0-0.2); Basophils % (manual) 0.9 %; Eosinophils # (manual) 0.13 K/uL (0-0.5); Eosinophils % (manual) 2.7 %; Lymphocytes # (manual) 0.63 K/uL (1.2-3.4); Lymphocytes % (manual) 13.3 %; Monocytes # (manual) 0.29 K/uL (0.11-0.59); Monocytes % (manual) 6.2 %; Neutrophils # (manual) 3.65 K/uL (1.4-6.5); Neutrophils % (manual) 76.9 %
[2020-04-23] MEDS: FINASTERIDE 5 MG TAB PO SCH (08:07)
[2020-04-23] MEDS: CLOPIDOGREL BISULFATE 75 MG TAB PO SCH (08:07)
[2020-04-23] MEDS: FLUTICASONE PROPIONATE NA SPR 16 GM BTL SCH (08:07)
[2020-04-23] MEDS: HEPARIN SOD 5,000 UNIT/0.5 ML VIAL SQ SCH ×2 (08:07→20:25)
[2020-04-23] MEDS: FAMOTIDINE 20 MG in SYRINGE 3 ML IV SCH ×2 (08:09→20:24)
--- NOTE | 2020-04-23 09:58 | Urology Consultation ---
Date of Consultation April 23, 2020 Assessment & Plan (1) Nephrolithiasis: Assessment #1n Question urinary retention-continue Storey for now #2 bladder stones these can be treated after discharge if patient desires #3 distal ureteral stones Patient is having no flank pain fevers or chills he has no signs of sepsis These can be watched for now while he undergoes his work-up for his GI issue and syncope No Urologic intervention planned unless patient develops fever chills or signs of sepsis in which case he may need emergent stenting History of Present Illness Attending Physician: Milady Velasco MD History of Present Illness 84-year-old white male admitted to the hospital with dysphasia and syncopal episode. I believe he is having an upper GI endoscopy today according to the patient. He is currently in a rehab facility after having bilateral knee replacements. He has an indwelling Storey catheter. He tells me it was placed at the rehab center he is not exactly sure why because he feels he was voiding adequately He had a CT scan which showed 4 large bladder stones he also has 2 distal right ureterovesical junction stones causing mild to moderate right hydronephrosis. He has been afebrile since he has been here He denies any flank pain He has been seen by Dr. Lau in the past but apparently has declined to have the bladder stones taken care of Allergies Allergy/AdvReac Type Severity Reaction Status Date / Time aspirin Allergy Severe HIVES/ANGIO Verified 04/22/20 18:29 EDEMA cilostazol Allergy Unknown Unknown Verified 04/22/20 18:29 lactose AdvReac Mild GI SYMPTOMS Verified 04/22/20 18:29 Home Medications Home Medications Medication Instructions Recorded Confirmed Type atorvastatin 80 mg tablet 80 mg PO HS 02/04/20 04/22/20 History clopidogrel 75 mg tablet 75 mg PO DAILY 02/04/20 04/22/20 History fluticasone propionate 50 2 sprays INTNAS QAM 02/04/20 04/22/20 History mcg/actuation nasal spray,suspension gemfibrozil 600 mg tablet 600 mg PO BID 02/04/20 04/22/20 History levothyroxine 125 mcg capsule 125 mcg PO QAM 02/04/20 04/22/20 History nitroglycerin 0.4 mg sublingual 0.4 mg SL DIRECTED PRN 02/04/20 04/22/20 History tablet ascorbic acid (vitamin C) 1,000 mg PO QAM 04/14/20 04/22/20 History tamsulosin 0.4 mg PO HS 04/14/20 04/22/20 History acetaminophen 650 mg PO Q4H PRN MDD 3 GMS 04/15/20 04/22/20 History APAP/24 HOURS alprazolam [Xanax] 0.25 mg PO Q12 PRN 04/15/20 04/22/20 History alum-mag hydroxide-simeth [Mylanta 10 ml PO Q4H PRN 04/15/20 04/22/20 History Maximum Strength] amoxicillin 2,000 mg PO DIRECTED PRN 04/15/20 04/22/20 History calcium carbonate [Tums 500] 1,000 mg PO Q6H PRN 04/15/20 04/22/20 History famotidine 20 mg PO Q12H 04/15/20 04/22/20 History ferrous sulfate 325 mg PO BID 04/15/20 04/22/20 History finasteride [Proscar] 5 mg PO QAM 04/15/20 04/22/20 History multivitamin with minerals 1 tab PO QAM 04/15/20 04/22/20 History [Multiple Vitamin-Minerals] ondansetron HCl 4 mg PO Q4H PRN 04/15/20 04/22/20 History pantoprazole [Protonix] 40 mg PO QAM 04/15/20 04/22/20 History sennosides [senna] 17.2 mg PO HS 04/15/20 04/22/20 History tramadol [Ultram] 50 mg PO Q6H PRN 04/15/20 04/22/20 History Patient History Medical History (Updated 04/23/20 @ 10:00 by Surinder Martinez MD) Nephrolithiasis Social History Smoking Status: Never smoker Do You Dip or Chew Tobacco: No; Hx Alcohol Use: No Hx Substance Use: No Preferred Language: Sudanese Communication Ability: Effective Group Controller Required: No Beliefs That Will Affect Care: None Current Living Situation: Spouse Feels Safe at Home: Yes Review of Systems Review of Systems: Constitutional: no fever, no frequent headaches, no recent weight gain, no chills and no recent weight loss. Eyes: no eye pain, no eyesight problems, no blurred vision, scotopic (night) vision is present and no blurred vision. ENT: no sore throat, no hearing loss, no nasal discharge and no hoarseness. Cardiovascular: the heart rate was not slow, no chest pain, the heart rate was not fast, no palpitations, no lower extremity edema, no murmurs were heard and no angina pectoris. Respiratory: no shortness of breath, no cough, no wheezing and no hemoptysis. Gastrointestinal: no abdominal pain, no constipation, no indigestion or heartburn, no vomiting, no diarrhea and no nausea. Musculoskeletal: no joint pain/arthralgias, no neck pain, no back pain and no arthritis. Integumentary: no skin lesions, no rash:, no boils and no dry skin. Neurological: no dizziness, no convulsions or seizures, no numbness and no tingling. Psychiatric: not nervous or anxious, no sleep disturbances, no depression and no trouble remembering. Endocrine: no excessive thirst, not feeling tired (fatigue), not feeling too hot and not too cold. Hematologic/Lymphatic: no swollen glands, no tendency for easy bleeding and no tendency for easy bruising. Physical Exam Physical Exam: Constitutional Well-developed well-nourished In no acute distress, Healthy appearing Neuro/psych Alert and oriented x3 Normal mood Normal affect Normal coordination Skin Normal color Normal turgor No rashes Warm and Dry Neck Normal visual inspection Pulmonary Normal rhythm and effort No respiratory distress No audible wheezes Able to speak in complete sentences Cardiac No peripheral edema Results & Data ([facility]) Vital Signs (Past 12 Hours) Vital Signs Temp Pulse Pulse Resp BP BP Pulse Ox 04/23/20 07:39 36.9 C 66 18 152/63 H 95 04/23/20 03:53 36.8 C 60 20 145/56 H 96 04/22/20 23:00 36.7 C 60 20 146/69 H 98 04/22/20 22:20 81 PG Care Time/CCT Total # of Minutes Spent Total Time Spent with Patient: Total time spent is greater than 50% in coordination of care (as documented) at patient's floor/unit and/or counseling patient: Coding Level of Care Code 07945 Initial Inpt Care Lvl 2 Diagnoses Nephrolithiasis N20.0
--- NOTE | 2020-04-23 11:06 | Gastrointestinal Consultation ---
Date of Consultation April 23, 2020 Assessment & Plan (1) Odynophagia: Differentials considered include reflux and jordy esophagitis and ulcer disease. EGD today by Dr. Hsu with further recommendations to follow. Present on Admission?: Yes Supervising Physician Co-Signing Physician Notes I saw and evaluated the patient. We were consulted for evaluation of interm ittent solid food dysphagia ongoing for the last 3 to 4 weeks since the patient had bilateral knee surgery. The patient notes that he gets a chest pressure- like sensation that lasts for several minutes at a time. He last had an upper endoscopy in 2011 notable for small hiatal hernia. Physical examination Elderly male in no obvious distress, no scleral icterus Impression: Patient with intermittent solid food dysphagia proceeding with upper endoscopy may be the next best step for him. If negative for obvious structural problem we could perform an empiric dilation. Should the patient's symptoms persist he would then need evaluation by speech pathology. History of Present Illness Reason for Consultation: "dysphagia" Requesting Physician: Dr. Akhtar Attending Physician: Milady Velasco MD History of Present Illness Mr. Jose Salomon is an 84-year-old male pt of Dr. Mckeon with a hx of CAD, mitral regurgitation, sick sinus syndrome status post pacemaker, CKD stage III, GERD and IBS, BPH,who underwent bilateral knee replacements approximately a month ago. While in rehab he began to have problems with eating. Although he is able to swallow, after swallowing, he developed burning chest pain across both sides, which persisted for about half an hour, improved by taking a liquid antacid. He has had mild nausea at times. He has not had any vomiting no melena or hematochezia. No choking or gagging on foods and he denies feeling that food gets stuck in his chest. Allergies Allergy/AdvReac Type Severity Reaction Status Date / Time aspirin Allergy Severe HIVES/ANGIO Verified 04/22/20 18:29 EDEMA cilostazol Allergy Unknown Unknown Verified 04/22/20 18:29 lactose AdvReac Mild GI SYMPTOMS Verified 04/22/20 18:29 Home Medications Home Medications Medication Instructions Recorded Confirmed Type atorvastatin 80 mg tablet 80 mg PO HS 02/04/20 04/22/20 History clopidogrel 75 mg tablet 75 mg PO DAILY 02/04/20 04/22/20 History fluticasone propionate 50 2 sprays INTNAS QAM 02/04/20 04/22/20 History mcg/actuation nasal spray,suspension gemfibrozil 600 mg tablet 600 mg PO BID 02/04/20 04/22/20 History levothyroxine 125 mcg capsule 125 mcg PO QAM 02/04/20 04/22/20 History nitroglycerin 0.4 mg sublingual 0.4 mg SL DIRECTED PRN 02/04/20 04/22/20 History tablet ascorbic acid (vitamin C) 1,000 mg PO QAM 04/14/20 04/22/20 History tamsulosin 0.4 mg PO HS 04/14/20 04/22/20 History acetaminophen 650 mg PO Q4H PRN MDD 3 GMS 04/15/20 04/22/20 History APAP/24 HOURS alprazolam [Xanax] 0.25 mg PO Q12 PRN 04/15/20 04/22/20 History alum-mag hydroxide-simeth [Mylanta 10 ml PO Q4H PRN 04/15/20 04/22/20 History Maximum Strength] amoxicillin 2,000 mg PO DIRECTED PRN 04/15/20 04/22/20 History calcium carbonate [Tums 500] 1,000 mg PO Q6H PRN 04/15/20 04/22/20 History famotidine 20 mg PO Q12H 04/15/20 04/22/20 History ferrous sulfate 325 mg PO BID 04/15/20 04/22/20 History finasteride [Proscar] 5 mg PO QAM 04/15/20 04/22/20 History multivitamin with minerals 1 tab PO QAM 04/15/20 04/22/20 History [Multiple Vitamin-Minerals] ondansetron HCl 4 mg PO Q4H PRN 04/15/20 04/22/20 History pantoprazole [Protonix] 40 mg PO QAM 04/15/20 04/22/20 History sennosides [senna] 17.2 mg PO 04/15/20 04/22/20 History tramadol [Ultram] 50 mg PO Q6H PRN 04/15/20 04/22/20 History Patient History Medical History Nephrolithiasis Social History Smoking Status: Never smoker Do You Dip or Chew Tobacco: No; Hx Alcohol Use: No Hx Substance Use: No Preferred Language: Danish Communication Ability: Effective Nib Assembler Required: No Beliefs That Will Affect Care: None Current Living Situation: Spouse Feels Safe at Home: Yes Review of Systems Review of Systems: ROS: Gen: Denies weakness, fevers, weight loss Eyes: No eye redness, or pain, no recent vision changes Resp: No SOB, no cough Cardio: No palpitations/irregular beats, no chest pain GI: Noodynophagia, otherwise (-) : difficulty with urination since surgery, cath in place Skin: No jaundice, itching or new rashes Physical Exam Constitutional: WD/WN, vitals as above Eyes: PERRL, conjunctivae normal, anicteric sclerae ENMT: external ear and nose normal, oropharynx normal Neck: trachea midline, no thyromegaly Respiratory: normal respiratory effort, lungs clear to auscultation Cardiovascular: RRR, no murmur, no edema Gastrointestinal (Abdomen): normal bowel sounds, soft, nontender, no hepatosplenomegaly Musculoskeletal: no cyanosis or clubbing, extremities motor strength 5/5 Neurologic: PERRL, EOMI, accommodation nl, no face palsy, no dysarthria Lymphatic: no cervical or axillary lymphadenopathy Results & Data ([facility]) Vital Signs (Past 12 Hours) Vital Signs Temp Pulse Resp BP Pulse Ox 04/23/20 07:39 36.9 C 66 18 152/63 H 95 04/23/20 03:53 36.8 C 60 20 145/56 H 96 Laboratory Results wbc 4.7, Hb 8.5, Hct 27, Platelets 441, INR 1.3, Na 139, K 4.5, BUN 17, Cr 1.43. Diagnostic Findings CT neck 04/22/20: Unremarkable appearance of the soft tissues of the neck. 2. No adenopathy or drainable fluid collection. Non constrast CT abd/pelvis on 04/22/20: 1. No active disease in the chest. 2. Mild cardiac enlargement and cardiac pacemaker. 3. A 10 mm obstructing calculus is present in the distal right ureter just above the vesicoureteral junction. This causes moderate right hydroureteronephrosis. 4. No additional calculi are clearly identified in either kidney. 5. Prostatomegaly with evidence of chronic bladder outlet obstruction. 6. There are several large bladder stones. 7. Additional findings as above.
--- NOTE | 2020-04-23 11:12 | History & Physical Bridge Note ---
Date of Service April 23, 2020 History & Physical Bridge Note I have examined the patient, reviewed the History & Physical and in the interval since the performance of the History & Physical I have noted the following changes of clinical significance: no changes noted. Please see full consult for details. The patient presents for upper endoscopy today due to 3 to 4 weeks of intermittent solid food dysphagia. We have discussed the risks of the procedure to include bleeding, infection, perforation and pain. As the patient is presently on antiplatelet agent we will proceed with the endoscopy this afternoon, he may need to come back for follow-up procedure if a large diameter dilation is needed
--- NOTE | 2020-04-23 11:18 | Anesthesiology Consultation ---
Date of Service April 23, 2020 Pacemaker Syncope Anticoagulated MA/Stents Acute anemia Hypothyroidism Assessment & Plan (1) Encounter for pre-operative examination: Chart Review Chart Review: Acceptable Risk for Surgery and Patient NOT seen in Pre Admission Testing Consults Requested none ASA ASA4 Proposed Anesthesia Anesthesia Type: MAC Risk / Benefits Reviewed With: PT / POA / Parent / Guardian, Accepts Plan and Informed Consent Obtained History Surgery Operation Date: 04/23/20 17:15 Proposed Procedures p Esophagogastroduodenoscopy Dr Shadi Hsu Height/Weight Height: 6 ft 2 in Weight: 79.4 kg Allergies Allergy/AdvReac Type Severity Reaction Status Date / Time aspirin Allergy Severe HIVES/ANGIO Verified 04/22/20 18:29 EDEMA cilostazol Allergy Unknown Unknown Verified 04/22/20 18:29 lactose AdvReac Mild GI SYMPTOMS Verified 04/22/20 18:29 Medications Home Medications Medication Instructions Recorded Confirmed Last Taken atorvastatin 80 mg tablet 80 mg PO HS 02/04/20 04/22/20 04/21/20 clopidogrel 75 mg tablet 75 mg PO DAILY 02/04/20 04/22/20 04/18/20 fluticasone propionate 50 2 sprays INTNAS QAM 02/04/20 04/22/20 04/22/20 mcg/actuation nasal spray,suspension gemfibrozil 600 mg tablet 600 mg PO BID 02/04/20 04/22/20 04/22/20 AM DOSE levothyroxine 125 mcg capsule 125 mcg PO QAM 02/04/20 04/22/20 04/22/20 nitroglycerin 0.4 mg sublingual 0.4 mg SL DIRECTED PRN 02/04/20 04/22/20 Unknown tablet ascorbic acid (vitamin C) 1,000 mg PO QAM 04/14/20 04/22/20 04/22/20 tamsulosin 0.4 mg PO HS 04/14/20 04/22/20 04/21/20 acetaminophen 650 mg PO Q4H PRN MDD 3 GMS 04/15/20 04/22/20 04/18/20 APAP/24 HOURS alprazolam [Xanax] 0.25 mg PO Q12 PRN 04/15/20 04/22/20 04/14/20 00:30 alum-mag hydroxide-simeth [Mylanta 10 ml PO Q4H PRN 04/15/20 04/22/20 04/18/20 Maximum Strength] amoxicillin 2,000 mg PO DIRECTED PRN 04/15/20 04/22/20 Unknown calcium carbonate [Tums 500] 1,000 mg PO Q6H PRN 04/15/20 04/22/20 04/03/20 famotidine 20 mg PO Q12H 04/15/20 04/22/20 04/22/20 AM DOSE - 20 MG ferrous sulfate 325 mg PO BID 04/15/20 04/22/20 04/22/20 AM DOSE finasteride [Proscar] 5 mg PO QAM 04/15/20 04/22/20 04/22/20 multivitamin with minerals 1 tab PO QAM 04/15/20 04/22/20 04/22/20 [Multiple Vitamin-Minerals] ondansetron HCl 4 mg PO Q4H PRN 04/15/20 04/22/20 04/10/20 pantoprazole [Protonix] 40 mg PO QAM 04/15/20 04/22/20 04/22/20 sennosides [senna] 17.2 mg PO HS 04/15/20 04/22/20 04/21/20 tramadol [Ultram] 50 mg PO Q6H PRN 04/15/20 04/22/20 04/17/20 Active Medications Generic Name Dose Route Start Last Admin Trade Name Freq PRN Reason Stop Dose Admin Clopidogrel Bisulfate 75 mg 04/23/20 09:00 04/23/20 08:07 Clopidogrel Bisulfate 75 Mg Tab PO 05/23/20 08:59 75 mg DAILY MOMO Administration Finasteride 5 mg 04/23/20 09:00 04/23/20 08:07 Finasteride 5 Mg Tab PO 05/23/20 08:59 5 mg QAM MOMO Administration Fluticasone Propionate 2 sprays 04/23/20 09:00 04/23/20 08:07 Fluticasone Propionate Na Spr 16 Gm Btl NA 05/23/20 08:59 2 sprays QAM MOMO Administration Heparin Sodium (Porcine) 5,000 units 04/22/20 21:00 04/23/20 08:07 Heparin Sod 5,000 Unit/0.5 Ml Vial SQ 05/22/20 20:59 5,000 units Q12 MOMO Administration Dextrose/Sodium Chloride 1,000 mls @ 60 mls/hr 04/22/20 20:30 04/22/20 21:26 D5w And Nss IV 05/22/20 20:29 60 mls/hr .[id number] MOMO Administration Famotidine 20 mg/ Syringe 5 mls @ 2.5 mls/min 04/22/20 21:00 04/23/20 08:09 IV 05/22/20 20:59 2.5 mls/min BID MOMO Administration Levothyroxine Sodium 125 mcg 04/23/20 06:30 04/23/20 06:03 Levothyroxine Sodium 125 Mcg Tablet PO 05/23/20 06:29 125 mcg DAILYBB MOMO Administration Tamsulosin HCl 0.4 mg 04/22/20 21:00 04/22/20 21:49 Tamsulosin Hcl 0.4 Mg Cap PO 05/22/20 20:59 0.4 mg HS MOMO Administration NPO Date Last Intake of Fluids: 04/22/20 Time Last Intake of Fluids: 16:00 Date Last Intake of Solids: 04/21/20 Time Last Intake of Solids: 18:00 Past Medical History Medical History Nephrolithiasis Exercise / Class Metabolic Activity II 4-5 Yardwork/Stairs/Walk up hill Past Anesthesia History No Hx of Anesthesia Complications and No Family Hx of Anesthesia Complications History of PONV No Hx of PONV and No Hx of Motion Sickness Social History Smoking Status: Never smoker Do You Dip or Chew Tobacco: No Hx Alcohol Use: No Hx Substance Use: No Physical Exam Vital Signs Last Vital Signs Temp 37.0 C 04/23/20 11:05 Pulse 66 04/23/20 11:05 Resp 18 04/23/20 11:05 BP 151/76 H 04/23/20 11:05 Pulse Ox 96 04/23/20 11:05 ENMT Mouth: no dentition abnormality Thyromental Distance: > or= 3.5 Finger Breadths Mallampati Class: II Neck normal visual inspection Respiratory normal respiratory effort Auscultation: lungs clear to auscultation bilaterally Cardiovascular Rate/Rhythm: regular rate and regular rhythm Chest (Breasts) Chest: + pacemaker Psychiatric Orientation: alert Testing Laboratory Results 04/23/20 07:07 04/23/20 07:07 PT 13.7 Seconds (9.0-12.0) H 04/22/20 14:31 INR 1.3 (0.9-1.1) H 04/22/20 14:31 APTT 29.0 Seconds (21.0-31.0) 04/22/20 14:31 Urine Color Yellow 04/22/20 17:50 Urine Appearance Clear (Clear) 04/22/20 17:50 Urine pH 7.0 (4.5-7.5) 04/22/20 17:50 Ur Specific [place] 1.008 (1.000-1.030) 04/22/20 17:50 Urine Protein Trace (Negative) H 04/22/20 17:50 Urine Glucose (UA) Negative (Negative) 04/22/20 17:50 Urine Ketones Negative (Negative) 04/22/20 17:50 Urine Nitrite Negative (Negative) 04/22/20 17:50 Ur Leukocyte Esterase Trace (Negative) H 04/22/20 17:50 Urine WBC (Auto) 1-5 /hpf (0-5) 04/22/20 17:50 Urine RBC (Auto) 0-4 /hpf (0-4) 04/22/20 17:50 U Hyaline Cast (Auto) 1-5 /lpf (0-5) 04/22/20 17:50 U Epithel Cells (Auto) 10-20 /lpf (0-5) H 04/22/20 17:50 Urine Bacteria (Auto) Negative (Negative) 04/22/20 17:50
[2020-04-23] MEDS ORDERED: ePHEDrine sulfate 50 MG/ML SYR ONE (11:36)
[2020-04-23] MEDS ORDERED: LIDOCAINE HCL 2% 2 ML VIAL/AMP(20MG/ML) INFIL ONE (11:36)
[2020-04-23] MEDS ORDERED: PROPOFOL IV EMULSION 10 MG/ML 20 ML VIAL IV ONE (11:36)
--- NOTE | 2020-04-23 11:39 | Hospitalist Progress Note ---
Date of Service April 23, 2020 Assessment & Plan (1) Dysphagia: 84-year-old male with recent bilateral total knee arthroplasty, March 27, 2020, History of CAD, mitral regurgitation, sick sinus syndrome status post pacemaker, CKD stage III, GERD and IBS, BPH, other problems noted below presenting with dysphagia x3 weeks. And syncopal episode(LOC for 3 minutes-cannot recollect) on 18 April Dysphagia and odynophagia Rule out esophageal obstruction, dysmotility Started when patient was at rehab post knee surgery, around middle of March Progressive, mostly with solids CT head performed April 18, 2020: No acute process Brain MRI could not be performed as patient is on pacemaker Appreciate GI input and recommendation-we will have EGD today Right ureteral stone with hydronephrosis Received a treatment for presumed UTI started April 18, 2020, urine culture: Positive cocci, 5000 colonies no sensitivities to follow; ciprofloxacin course given at the ER April 18, 2020 Also on Storey catheter for about 2 weeks now for urinary retention noted at rehab Does not have any symptoms of dysuria and/or back pain Fever and/or chills Urologist consulted-appreciate input and recommendation Syncope Scented to ER with syncopal episode last April 18, 2020 felt to be secondary to UTI CT head at that time: No acute process Per patient's daughter, the patient was at the kitchen table, felt lightheaded, became unresponsive, staring for about 4 minutes, clammy, pale before coming around Will do further investigation EEG to rule out seizure Neurology consultation Pacemaker interrogation, echocardiogram Orthostatic vital signs Denies any neuro symptoms as of this morning History of CAD Continue Plavix, hold atorvastatin Acute issue Mitral regurgitation Euvolemic, monitor while on IV fluids Sinus syndrome, status post pacemaker placement Pacemaker interrogation in light of syncope CKD stage III Stable GERD Convert famotidine Protonix to IV BPH Continue finasteride and Flomax Hypothyroidism Continue levothyroxine History of for skin cancer, monoclonal paraproteinemia Out patient follow-up DVT prophylaxis Heparin subcutaneous every 12 hours in light of recent surgery March 27, 2020 CODE STATUS Full code per patient's daughter at the bedside Admission and Anticipated Discharge Date Admission Date: April 22, 2020 Subjective 04/23/2020 The patient was seen and examined in medical telemetry unit He was admitted with progressive dysphagia and odynophagia and was noted to have right ureteric stone with hydronephrosis Also he has a history of syncopal episode on of last month Has been feeling a lot better this morning Denies any significant symptoms Review of Systems Review of Systems: All systems reviewed and are unremarkable except as noted below Gastrointestinal: + dysphagia (Odynophagia) Neurologic: + syncope (Syncope on 18 April) Denies any neurological symptoms Physical Exam Physical Exam: Sitting on a chair without any acute distress Constitutional: well developed, well nourished and + ill appearing; no acute distress Eyes: PERRL, conjunctivae normal, anicteric sclerae ENMT: external ear and nose normal, oropharynx normal Neck: trachea midline, no thyromegaly Respiratory: normal respiratory effort; no respiratory distress Auscultation: lungs clear to auscultation bilaterally Cardiovascular: Rate/Rhythm: regular rate and regular rhythm Heart Sounds: no murmur Gastrointestinal (Abdomen): Inspection/Auscultation: abdomen normal to inspection and normal bowel sounds; abdomen not distended Percussion/Palpation: abdomen soft Mild right CVA angle tenderness Musculoskeletal: No acute arthritis involving any joints Neurologic: moves all extremities; no focal motor deficits Alert, weak and oriented x3 Results & Data Results & Data ([facility]) Vital Signs (Past 12 Hours) Vital Signs Temp Pulse Resp BP Pulse Ox 04/23/20 11:05 37.0 C 66 18 151/76 H 96 04/23/20 07:39 36.9 C 66 18 152/63 H 95 04/23/20 03:53 36.8 C 60 20 145/56 H 96 Laboratory Results Short CBC 04/22/20 04/23/20 Range/Units 14:31 07:07 WBC 7.72 4.75 L (4.8-10.8) K/uL Hgb 9.3 L 8.7 L (14.0-18.0) g/dL Hct 29.7 L 27.5 L (42-52) % Plt Count 540 H 441 H (130-400) K/uL BMP 04/22/20 04/22/20 04/23/20 14:31 20:56 07:07 Sodium 138 140 139 Potassium 4.7 4.5 4.5 Chloride 104 105 107 Carbon Dioxide 27 28 26 BUN 19 H 18 17 Creatinine 1.58 H 1.52 H 1.43 H Glucose 101 H 94 Calcium 9.3 9.5 8.8 Cardiac Enzymes 04/22/20 Range/Units 14:31 Troponin I < 0.015 (0-0.045) ng/ml Liver Function 04/22/20 Range/Units 14:31 Total Bilirubin 0.4 (0.2-1) mg/dl Direct Bilirubin < 0.1 (0-0.2) mg/dl AST 17 (15-37) U/L ALT 14 (12-78) U/L Alkaline Phosphatase 160 H (45-117) U/L Albumin 3.1 L (3.4-5.0) gm/dl Urine 04/22/20 Range/Units 17:50 Urine Color Yellow Urine Appearance Clear (Clear) Urine pH 7.0 (4.5-7.5) Ur Specific [place] 1.008 (1.000-1.030) Urine Protein Trace H (Negative) Urine Glucose (UA) Negative (Negative) Medications Administered Current Inpatient Medications Amoxicillin (Amoxicillin 500 Mg Cap) 2,000 mg PO UD PRN PRN Reason: Prophylaxis Stop: 04/23/20 20:29 Clopidogrel Bisulfate (Clopidogrel Bisulfate 75 Mg Tab) 75 mg PO DAILY [facility] Stop: 05/23/20 08:59 Last Admin: 04/23/20 08:07 Dose: 75 mg Documented by: Finasteride (Finasteride 5 Mg Tab) 5 mg PO QAM [facility] Stop: 05/23/20 08:59 Last Admin: 04/23/20 08:07 Dose: 5 mg Documented by: Fluticasone Propionate (Fluticasone Propionate Na Spr 16 Gm Btl) 2 sprays NA QAM [facility] Stop: 05/23/20 08:59 Last Admin: 04/23/20 08:07 Dose: 2 sprays Documented by: Heparin Sodium (Porcine) (Heparin Sod 5,000 Unit/0.5 Ml Vial) 5,000 units SQ Q12 MOMO Stop: 05/22/20 20:59 Last Admin: 04/23/20 08:07 Dose: 5,000 units Documented by: Dextrose/Sodium Chloride (D5w And Nss) 1,000 mls @ 60 mls/hr IV .[id number] MOMO Stop: 05/22/20 20:29 Last Admin: 04/22/20 21:26 Dose: 60 mls/hr Documented by: Famotidine 20 mg/ Syringe 5 mls @ 2.5 mls/min IV BID MOMO Stop: 05/22/20 20:59 Last Admin: 04/23/20 08:09 Dose: 2.5 mls/min Documented by: Pantoprazole Sodium 40 mg/ (Syringe) 10 mls @ 5 mls/min IV DAILY@1100 [facility] Stop: 05/23/20 10:59 Acetaminophen (Ofirmev) 1,000 mg in 100 mls @ 400 mls/hr IV Q8H PRN PRN Reason: Pain or Fever Stop: 04/25/20 20:29 Levothyroxine Sodium (Levothyroxine Sodium 125 Mcg Tablet) 125 mcg PO DAILYBB [facility] Stop: 05/23/20 06:29 Last Admin: 04/23/20 06:03 Dose: 125 mcg Documented by: Tamsulosin HCl (Tamsulosin Hcl 0.4 Mg Cap) 0.4 mg PO HS [facility] Stop: 05/22/20 20:59 Last Admin: 04/22/20 21:49 Dose: 0.4 mg Documented by:
--- NOTE | 2020-04-23 11:39 | Communication Note ---
Date of Service: April 23, 2020 The patient underwent upper endoscopy this afternoon. The study was notable for a 3 cm hiatal hernia the esophagus was otherwise unremarkable. We performed an empiric dilation to 51 Yi today. Should the patient have persistent symptoms would consider further evaluation with speech pathology for evaluation of perhaps transfer dysphagia. Please call with any additional questions or concerns, GI to sign off
--- NOTE | 2020-04-23 11:39 | GI REPORT ---
Patient Name: Jose Salomon Procedure Date: 04/23/2020 11:23 AM Date of : 1935 Admit Type: Inpatient Age: 84 Gender: Male Attending MD: Rogelio Hsu DO Procedure: Upper GI endoscopy Providers: Rogelio Hsu DO Referring MD: Milady Wilder Indications: Dysphagia Medicines: Monitored Anesthesia Care Complications: No immediate complications. Estimated blood loss: Minimal. Estimated Blood Loss: Estimated blood loss was minimal. Procedure: Pre-Anesthesia Assessment: - Prior to the procedure, a History and Physical was performed, and patient medications, allergies and sensitivities were reviewed. The patient's tolerance of previous anesthesia was reviewed. - The risks and benefits of the procedure and the sedation options and risks were discussed with the patient. All questions were answered and informed consent was obtained. - Patient identification and proposed procedure were verified prior to the procedure by the physician, the nurse and the defense travel administrator. The procedure was verified in the procedure room. - Pre-procedure physical examination revealed no contraindications to sedation. - ASA Grade Assessment: IV - A patient with severe systemic disease that is a constant threat to life. - After reviewing the risks and benefits, the patient was deemed in satisfactory condition to undergo the procedure. - The anesthesia plan was to use monitored anesthesia care (MAC). - Immediately prior to administration of medications, the patient was re-assessed for adequacy to receive sedatives. - The heart rate, respiratory rate, oxygen saturations, blood pressure, adequacy of pulmonary ventilation, and response to care were monitored throughout the procedure. - The physical status of the patient was re-assessed after the procedure. After obtaining informed consent, the endoscope was passed under direct vision. Throughout the procedure, the patient's blood pressure, pulse, and oxygen saturations were monitored continuously. The Endoscope was introduced through the mouth, and advanced to the third part of duodenum. The upper GI endoscopy was accomplished without difficulty. The patient tolerated the procedure well. Findings: No endoscopic abnormality was evident in the esophagus to explain the patient's complaint of dysphagia. It was decided, however, to proceed with dilation of the entire esophagus. A guidewire was placed and the scope was withdrawn. Dilation was performed with a Savary dilator with no resistance at 48 Fr and 51 Fr. The dilation site was examined following endoscope reinsertion and showed no change. Estimated blood loss: none. A small hiatal hernia was found. The proximal extent of the gastric folds (end of tubular esophagus) was 41 cm from the incisors. The hiatal narrowing was 43 cm from the incisors. The Z-line was 41 cm from the incisors. The gastric fundus, gastric body, incisura and gastric antrum were normal. The examined duodenum was normal. Impression: - No endoscopic esophageal abnormality to explain patient's dysphagia. Esophagus dilated to 51 Fr today. - Small hiatal hernia. - Normal gastric fundus, gastric body, incisura and antrum. - Normal examined duodenum. - No specimens collected. Recommendation: - [facility]. - Observe patient's clinical course. If symptoms persist would suggest a speech pathology evaluation and perhaps upper GI series evaluate for transfer dysphagia. Rogelio Hsu D.O. Rogelio Hsu, 04/23/2020 11:38:47 AM This report has been signed electronically. Note Initiated On: 04/23/2020 11:23 AM Number of Addenda: 0 I attest to the content of the Intraoperative Record and orders documented therein, exceptions below {[id number]}
[2020-04-23] MEDS: PANTOprazole 40 MG in SYRINGE 0 ML IV SCH (12:50)
--- NOTE | 2020-04-23 13:54 | Electroencephalogram ---
EEG Procedure Note Date of Service April 23, 2020 Start / End Times Start Time: 06:42 End Time: 07:[address] Stanford Akhtar History An 84-year-old male with syncope. EEG performed for evaluation of epileptiform activity. Home Medication List Home Medications Medication Instructions Recorded Confirmed Type atorvastatin 80 mg tablet 80 mg PO HS 02/04/20 04/22/20 History clopidogrel 75 mg tablet 75 mg PO DAILY 02/04/20 04/22/20 History fluticasone propionate 50 2 sprays INTNAS QA 02/04/20 04/22/20 History mcg/actuation nasal spray,suspension gemfibrozil 600 mg tablet 600 mg PO BID 02/04/20 04/22/20 History levothyroxine 125 mcg capsule 125 mcg PO QAM 02/04/20 04/22/20 History nitroglycerin 0.4 mg sublingual 0.4 mg SL DIRECTED PRN 02/04/20 04/22/20 History tablet ascorbic acid (vitamin C) 1,000 mg PO QAM 04/14/20 04/22/20 History tamsulosin 0.4 mg PO HS 04/14/20 04/22/20 History acetaminophen 650 mg PO Q4H PRN MDD 3 GMS 04/15/20 04/22/20 History APAP/24 HOURS alprazolam [Xanax] 0.25 mg PO Q12 PRN 04/15/20 04/22/20 History alum-mag hydroxide-simeth [Mylanta 10 ml PO Q4H PRN 04/15/20 04/22/20 History Maximum Strength] amoxicillin 2,000 mg PO DIRECTED PRN 04/15/20 04/22/20 History calcium carbonate [Tums 500] 1,000 mg PO Q6H PRN 04/15/20 04/22/20 History famotidine 20 mg PO Q12H 04/15/20 04/22/20 History ferrous sulfate 325 mg PO BID 04/15/20 04/22/20 History finasteride [Proscar] 5 mg PO QAM 04/15/20 04/22/20 History multivitamin with minerals 1 tab PO QAM 04/15/20 04/22/20 History [Multiple Vitamin-Minerals] ondansetron HCl 4 mg PO Q4H PRN 04/15/20 04/22/20 History pantoprazole [Protonix] 40 mg PO QAM 04/15/20 04/22/20 History sennosides [senna] 17.2 mg PO HS 04/15/20 04/22/20 History tramadol [Ultram] 50 mg PO Q6H PRN 04/15/20 04/22/20 History Inpatient Medication List Clopidogrel Bisulfate (Clopidogrel Bisulfate 75 Mg Tab) 75 mg PO DAILY MOMO Stop: 05/23/20 08:59 Last Admin: 04/23/20 08:07 Dose: 75 mg Documented by: [id number] Finasteride (Finasteride 5 Mg Tab) 5 mg PO QAM MOMO Stop: 05/23/20 08:59 Last Admin: 04/23/20 08:07 Dose: 5 mg Documented by: [id number] Fluticasone Propionate (Fluticasone Propionate Na Spr 16 Gm Btl) 2 sprays NA QAM [facility] Stop: 05/23/20 08:59 Last Admin: 04/23/20 08:07 Dose: 2 sprays Documented by: [id number] Heparin Sodium (Porcine) (Heparin Sod 5,000 Unit/0.5 Ml Vial) 5,000 units SQ Q12 MOMO Stop: 05/22/20 20:59 Last Admin: 04/23/20 08:07 Dose: 5,000 units Documented by: [id number] Cosigned by: [id number] Admin: 04/22/20 21:49 Dose: 5,000 units Documented by: [id number] Cosigned by: [id number] Dextrose/Sodium Chloride (D5w And Nss) 1,000 mls @ 60 mls/hr IV .[id number] MOMO Stop: 05/22/20 20:29 Last Admin: 04/22/20 21:26 Dose: 60 mls/hr Documented by: [id number] Famotidine 20 mg/ Syringe 5 mls @ 2.5 mls/min IV BID MOMO Stop: 05/22/20 20:59 Last Admin: 04/23/20 08:09 Dose: 2.5 mls/min Documented by: [id number] Admin: 04/22/20 21:26 Dose: 2.5 mls/min Documented by: [id number] Pantoprazole Sodium 40 mg/ (Syringe) 10 mls @ 5 mls/min IV DAILY@1100 MOMO Stop: 05/23/20 10:59 Last Admin: 04/23/20 12:50 Dose: 5 mls/min Documented by: [id number] Levothyroxine Sodium (Levothyroxine Sodium 125 Mcg Tablet) 125 mcg PO DAILYBB [facility] Stop: 05/23/20 06:29 Last Admin: 04/23/20 06:03 Dose: 125 mcg Documented by: [id number] Tamsulosin HCl (Tamsulosin Hcl 0.4 Mg Cap) 0.4 mg PO HS [facility] Stop: 05/22/20 20:59 Last Admin: 04/22/20 21:49 Dose: 0.4 mg Documented by: [id number] Discontinued Medications Al Hydrox/Mg Hydrox/Simethicone (Gi Cocktail Ed Use) 1 dose PO ONE ONE Stop: 04/22/20 17:06 Last Admin: 04/22/20 17:30 Dose: 1 dose Documented by: [id number] Ephedrine Sulfate (Ephedrine Sulfate 50 Mg/Ml Syr) Confirm Administered Dose 10 mg .ROUTE .STK-MED ONE Stop: 04/23/20 11:37 Last Admin: 04/23/20 12:39 Dose: Not Given Documented by: [id number] Sodium Chloride (Nss) 500 mls @ 999 mls/hr IV .Q31M ONE Stop: 04/22/20 15:11 Last Infusion: 04/22/20 16:29 Dose: 0 mls/hr Documented by: [id number] Admin: 04/22/20 15:20 Dose: 999 mls/hr Documented by: [id number] Famotidine (Pepcid 20mg Iv Push) 20 mg in 5 mls @ 2.5 mls/min IV NOW STA Stop: 04/22/20 14:42 Last Admin: 04/22/20 15:20 Dose: 2.5 mls/min Documented by: [id number] Ceftriaxone Sodium (Rocephin) 2,000 mg in 70 mls @ 140 mls/hr IV NOW STA Stop: 04/22/20 18:21 Last Infusion: 04/22/20 19:06 Dose: 0 mls/hr Documented by: [id number] Admin: 04/22/20 18:31 Dose: 140 mls/hr Documented by: [id number] Lidocaine HCl (Lidocaine Hcl 2% 2 Ml Vial/Amp(20mg/Ml)) Confirm Administered Dose 2 ml INFIL .STK-MED ONE Stop: 04/23/20 11:37 Last Admin: 04/23/20 12:39 Dose: Not Given Documented by: [id number] Propofol (Propofol Iv Emulsion 10 Mg/Ml 20 Ml Vial) Confirm Administered Dose 200 mg IV .[employer] ONE Stop: 04/23/20 11:37 Last Admin: 04/23/20 12:39 Dose: Not Given Documented by: [id number] Description This is a 21 electrode EEG with a single channel dedicated to limited EKG. The electrodes were placed in accordance with the International 10-20 system. Report: At the onset of the EEG the patient is drowsy. The background is symmetric and well organized. The posterior dominant rhythm is 8.5 Hz. There is a normal anterior to posterior gradient with low amplitude indeterminate activity in the frontal head regions. Photic stimulation does not induce any abnormalities. Drowsiness is characterized by increased theta activity, decreased blink rate, and reduced myogenic artifact. No stage 2 sleep transients are recorded. Impression: This is a normal awake and drowsy routine EEG. There is no evidence of focal slowing or epileptiform activity.
[2020-04-23] MEDS: D5W AND NSS 1,000 ML IV SCH (14:46)
--- NOTE | 2020-04-23 15:36 | Anesthesiology Progress Note ---
Date of Service April 23, 2020 Anesthesia Post Procedure Vital Signs Vital Signs: Temp Pulse Pulse Pulse Resp BP BP 04/23/20 12:32 36.5 C 65 04/23/20 12:11 56 L 20 136/65 04/23/20 11:57 60 20 131/57 L 04/23/20 11:42 85 16 114/63 04/23/20 11:05 37.0 C 66 18 151/76 H 04/23/20 07:39 36.9 C 66 18 152/63 H 04/23/20 03:53 36.8 C 60 20 145/56 H 04/22/20 23:00 36.7 C 60 20 04/22/20 22:20 81 04/22/20 21:14 62 04/22/20 20:25 36.6 C 61 16 04/22/20 19:44 62 16 04/22/20 18:50 70 23 04/22/20 18:41 61 16 04/22/20 18:31 67 19 04/22/20 18:30 60 14 147/66 H 04/22/20 18:20 61 15 04/22/20 18:10 60 17 04/22/20 18:01 61 22 04/22/20 18:00 60 19 137/67 04/22/20 17:50 61 16 04/22/20 17:40 68 18 04/22/20 17:31 66 18 04/22/20 17:30 63 24 146/71 H 04/22/20 17:20 61 12 04/22/20 17:10 60 15 04/22/20 17:01 60 15 04/22/20 17:00 61 12 136/63 04/22/20 16:50 60 18 04/22/20 16:40 62 14 04/22/20 16:32 60 16 04/22/20 16:30 61 21 141/69 H 04/22/20 16:20 61 61 21 141/69 H 04/22/20 16:00 60 18 04/22/20 15:51 60 17 04/22/20 15:40 60 16 BP Pulse Ox 04/23/20 12:32 133/68 94 04/23/20 12:11 97 04/23/20 11:57 97 04/23/20 11:42 98 04/23/20 11:05 96 04/23/20 07:39 95 04/23/20 03:53 96 04/22/20 23:00 146/69 H 98 04/22/20 22:20 04/22/20 21:14 04/22/20 20:25 152/66 H 94 04/22/20 19:44 135/76 96 04/22/20 18:50 97 04/22/20 18:41 95 04/22/20 18:31 99 04/22/20 18:30 98 04/22/20 18:20 96 04/22/20 18:10 98 04/22/20 18:01 96 04/22/20 18:00 96 04/22/20 17:50 98 04/22/20 17:40 99 04/22/20 17:31 98 04/22/20 17:30 98 04/22/20 17:20 99 04/22/20 17:10 98 04/22/20 17:01 94 04/22/20 17:00 97 04/22/20 16:50 93 04/22/20 16:40 96 04/22/20 16:32 94 04/22/20 16:30 93 04/22/20 16:20 141/69 H 98 04/22/20 16:00 04/22/20 15:51 04/22/20 15:40 Transfer of Care Handoff Completed per policy Notes Mental Status: alert / awake / arousable Patient Amnestic to Procedure: Yes Nausea / Vomiting: adequately controlled Pain: adequately controlled Airway Patency, RR, SpO2: stable & adequate BP & HR: stable & adequate Hydration State: stable & adequate Anesthetic Complications: no major complications apparent
--- NOTE | 2020-04-23 18:40 | Ultrasound Report ---
CAROTID ARTERY ULTRASOUND CLINICAL HISTORY: syncope COMPARISON STUDY: CTA of the neck August 10, 2016. Carotid ultrasound August 25, 2012. TECHNIQUE: Real-time, grayscale, and color Doppler sonography of the carotid and vertebral arteries w as performed. Images were viewed in the transverse and longitudinal planes. FINDINGS: There is minimal atherosclerotic plaque. Velocity measurements are listed below. COMMON CAROTID PEAK SYSTOLIC VELOCITY (CM/S): RIGHT 105 LEFT 116 ICA PEAK SYSTOLIC VELOCITY (CM/S): RIGHT 111 LEFT 97 The systolic ratios between the internal to common carotid arteries are normal. Antegrade flow is seen in the vertebral arteries. The external carotid arteries are patent. Blood pressure in the right arm measured 133/68. Blood pressure in the left arm measured 136/65. IMPRESSION: No evidence for a hemodynamically significant stenosis. ACT 112: Negative or not required by law. Electronically signed by: Joey Stoner M.D. 04/23/2020 6:39 PM
--- NOTE | 2020-04-23 18:56 | Consultation Report ---
DATE OF CONSULTATION: 04/23/2020 REASON FOR CONSULTATION: Syncope. HISTORY OF PRESENT ILLNESS: The patient is an 84-year-old male who recently underwent bilateral knee replacements and had been rehabilitating at [facility]. In the middle of March, had difficulty with swallowing solids, but no difficulty with liquids. There actually is not an issue with swallowing per se, but he feels things get stuck in the esophagus and then it radiates pain bilaterally. He has no change in speech. No ptosis or double vision. No fatigable weakness. Several days prior to this admission, the patient had been at home and had been walking and sat down. He felt nauseated, said he felt dizzy, although he does not recall that, then he felt as if he was going to vomit. He may have dry heaved. He became unresponsive. There was some mild drooling. His head dropped forward. His eyes were fixed and blank. His arms were limp. He was clammy, pale. He may have stopped breathing. This lasted 3-4 minutes, he was unresponsive to sternal rub. His daughter is a nurse, checked his pulse, but had difficulty finding it. He gradually responded slowly to stimulation, but was not disoriented. He has a Storey catheter in, so he was not incontinent, he did not bite his tongue, did not have a headache at that time. There were no focal neurologic signs or symptoms thereafter. He had eaten broth at lunch, but that had been what he had typically been eating since he has had some difficulty with swallowing. No prior history of syncope, no prior history of seizure. He did indicate that in approximately 2000, he had a head injury with skull fracture. The patient has a pacemaker and there were plans to interrogate the pacemaker to see if there were any dysrhythmias. The patient indicates to me that it was interrogated and there were no dysrhythmias. Imaging revealed a CT of the head, noncontrast, which was unremarkable for age. There were probably moderate periventricular white matter changes. The patient indicates that he was not on any new medications, although he was taking pain medications occasionally and this included Ultram. He denies any benzodiazepine withdrawal. LABORATORY DATA: On admission, white count 7, H and H 9.3/27, platelet count 540. INR was 1.3. Creatinine 1.52, glucose 101. TSH 3.66. Urinalysis, trace protein, 1+ blood, trace leukocyte esterase, 10-20 epithelial cells. EEG was normal. PAST MEDICAL HISTORY: Coronary artery disease, mitral regurg, sick sinus syndrome, chronic kidney disease, reflux, BPH, hypothyroidism, skin cancer, monoclonal paraproteinemia. No history of other cancer. PAST SURGICAL HISTORY: Bilateral knees. SOCIAL HISTORY: Nonsmoker. ALLERGIES: ASPIRIN, CILOSTAZOL, LACTOSE. HOME MEDICATIONS: Atorvastatin, Plavix, fluticasone, gemfibrozil, levothyroxine, nitroglycerin, ascorbic acid, tamsulosin, Xanax, Mylanta, amoxicillin, calcium carbonate, famotidine, iron, Proscar, Zofran, Protonix, senna and tramadol. FAMILY HISTORY: Not thought to be contributory. PHYSICAL EXAMINATION: VITAL SIGNS: 145/67, 64, 20, 36.8. The patient is awake and alert. Speech and language are normal and his affect is appropriate. No carotid bruits are noted. No heart murmurs are appreciable. Heart has regular rate and rhythm. Pupils are equal, round, reactive to light. Optic nerves are difficult to visualize. There are normal ballesteors, motility, facial sensation and facial symmetry. No ptosis is noted. No fatigability of eye closure. Normal extraocular motility. No jaw opening weakness. No neck flexor or extensor fatigue or weakness. Tongue is fully strong in the midline. Gag is mildly hyperactive. Motor; upper extremity full, lower full within the limits of testing. Ankle jerks are present. Upper extremity reflexes are symmetric. Toes are downgoing. [id number] is normal. IMPRESSION: Syncopal episode with prodromal nausea, dizziness, near vomiting and dry heaving that raises the question of a vasovagal event, although the patient of course cannot drop his heart rate below the set rate for his pacer. Would clearly recommend if not done to have his pacer interrogated to see if there are any tachy dysrhythmias. We will check orthostatics. Seizure is within the differential and it certainly cannot be excluded by a description, although the pallor and diaphoresis would be unusual for seizure as would be lack of postictal confusion. I would consider discontinuing tramadol because of that. Would recommend a carotid ultrasound. I do not see a neuromuscular reason for dysphagia. Consider speech therapy with video fluoroscopy with speech in addition to what you are doing.
[2020-04-23] MEDS: TAMSULOSIN HCL 0.4 MG CAP PO SCH (20:25)
[2020-04-24] MEDS: LEVOTHYROXINE SODIUM 125 MCG TABLET PO SCH (05:44)
[2020-04-24] MEDS ORDERED: MIDAZOLAM HCL 1 MG/ML 2ML VIAL ONE (08:32)
[2020-04-24] MEDS ORDERED: fentaNYL citrate 100 MCG/2 ML VIAL ONE ×2 (08:32→12:57)
[2020-04-24] MEDS ORDERED: PROPOFOL IV EMULSION 10 MG/ML 20 ML VIAL IV ONE ×4 (08:32→12:55)
[2020-04-24] MEDS ORDERED: LIDOCAINE HCL 2% 2 ML VIAL/AMP(20MG/ML) INFIL ONE (08:32)
[2020-04-24] MEDS ORDERED: ONDANSETRON INJ 2 MG/ML 2 ML VIAL ONE (08:33)
--- NOTE | 2020-04-24 08:36 | Urology Progress Note ---
Date of Service April 24, 2020 Assessment & Plan (1) Nephrolithiasis: Patient continues to have discomfort. Large obstructing stone with bilateral hydro and large prostate with bladder stones. Risks and benefits discussed at length for procedure. These include bleeding, infection, injury to surrounding tissues or organs, and risks associated with anesthesia. Patient states understanding and agrees to proceed. Will sign consent and schedule. Will schedule for Cysto, possible bilateral stent, and bladder stone extraction. Admission and Anticipated Discharge Date Admission Date: April 22, 2020 Subjective Patient admitted with stone and discomfort. Patient is afebrile. Has been undergoing maximum expulsion therapy with oral medications, IV medications, IV fluids, and oral intake. Complicated history with obstruction and bladder stone. Continues to have pain but no severe or major issues. Has not developed severe vomiting or other issues. Has not experienced fever or chills. Has noticed some frequency and urgency. Has not had severe pain in the back and flank. Does have occasional burning and irritation. No severe episodes or major changes. Patient does not believe the passed a stone. Has not passed a large amount of blood or debris that may be the stone. Review of Systems Review of Systems: All systems reviewed & are unremarkable except as noted in HPI & below Physical Exam Physical Exam: General: Alert in no acute distress. Advanced age. HEENT: Normocephalic Atraumatic. Inspection normal. Cranial Nerves 2-12 Grossly intact. Normal inspection of face. Normal inspection of neck. Psychologic: Normal affect. Respiratory: Nonlabored. No use of accessory muscles. No tachypnea or dyspnea. Cardiovascular: No tachycardia Skin: [place] and Dry. No rashes or visible lesions. Extremities/Lymphatics: No edema Abdomen: Soft Non-distended. No rebound or guarding. Results & Data ([facility]) Vital Signs (Past 12 Hours) Vital Signs Temp Pulse Pulse Resp BP BP Pulse Ox 04/24/20 07:11 36.5 C 60 18 142/61 H 94 04/24/20 03:00 36.9 C 61 18 133/68 92 04/23/20 23:00 36.9 C 61 20 130/60 97 04/23/20 22:20 65 PG Care Time/CCT Total # of Minutes Spent Total Time Spent with Patient: Total time spent is greater than 50% in coordination of care (as documented) at patient's floor/unit and/or counseling patient: Coding Level of Care Code 74772 Subseq Hosp Care Lvl 3 Diagnoses Nephrolithiasis N20.0
--- NOTE | 2020-04-24 08:54 | Anesthesiology Consultation ---
Date of Service April 24, 2020 Assessment & Plan (1) Encounter for pre-operative examination: Chart Review Chart Review: Acceptable Risk for Surgery and Patient NOT seen in Pre Admission Testing Consults Requested none History Surgery Operation Date: 04/23/20 17:15 Proposed Procedures p Esophagogastroduodenoscopy Dr Shadi Hsu Operation Date: 04/24/20 09:25 Proposed Procedures p Cystoscopy, Extraction of Bladder Stones, Possible Bilateral Stents - David Rodriguez, DO Height/Weight Height: 6 ft 2 in Weight: 81.2 kg Allergies Allergy/AdvReac Type Severity Reaction Status Date / Time aspirin Allergy Severe HIVES/ANGIO Verified 04/22/20 18:29 EDEMA cilostazol Allergy Unknown Unknown Verified 04/22/20 18:29 lactose AdvReac Mild GI SYMPTOMS Verified 04/22/20 18:29 Medications Home Medications Medication Instructions Recorded Confirmed Last Taken atorvastatin 80 mg tablet 80 mg PO HS 02/04/20 04/22/20 04/21/20 clopidogrel 75 mg tablet 75 mg PO DAILY 02/04/20 04/22/20 04/18/20 fluticasone propionate 50 2 sprays INTNAS QA 02/04/20 04/22/20 04/22/20 mcg/actuation nasal spray,suspension gemfibrozil 600 mg tablet 600 mg PO BID 02/04/20 04/22/20 04/22/20 AM DOSE levothyroxine 125 mcg capsule 125 mcg PO QAM 02/04/20 04/22/20 04/22/20 nitroglycerin 0.4 mg sublingual 0.4 mg SL DIRECTED PRN 02/04/20 04/22/20 Unknown tablet ascorbic acid (vitamin C) 1,000 mg PO QAM 04/14/20 04/22/20 04/22/20 tamsulosin 0.4 mg PO HS 04/14/20 04/22/20 04/21/20 acetaminophen 650 mg PO Q4H PRN MDD 3 GMS 04/15/20 04/22/20 04/18/20 APAP/24 HOURS alprazolam [Xanax] 0.25 mg PO Q12 PRN 04/15/20 04/22/20 04/14/20 00:30 alum-mag hydroxide-simeth [Mylanta 10 ml PO Q4H PRN 04/15/20 04/22/20 04/18/20 Maximum Strength] amoxicillin 2,000 mg PO DIRECTED PRN 04/15/20 04/22/20 Unknown calcium carbonate [Tums 500] 1,000 mg PO Q6H PRN 04/15/20 04/22/20 04/03/20 famotidine 20 mg PO Q12H 04/15/20 04/22/20 04/22/20 AM DOSE - 20 MG ferrous sulfate 325 mg PO BID 04/15/20 04/22/20 04/22/20 AM DOSE finasteride [Proscar] 5 mg PO QAM 04/15/20 04/22/20 04/22/20 multivitamin with minerals 1 tab PO QAM 04/15/20 04/22/20 04/22/20 [Multiple Vitamin-Minerals] ondansetron HCl 4 mg PO Q4H PRN 04/15/20 04/22/20 04/10/20 pantoprazole [Protonix] 40 mg PO QAM 04/15/20 04/22/20 04/22/20 sennosides [senna] 17.2 mg PO HS 04/15/20 04/22/20 04/21/20 tramadol [Ultram] 50 mg PO Q6H PRN 04/15/20 04/22/20 04/17/20 Active Medications Generic Name Dose Route Start Last Admin Trade Name Freq PRN Reason Stop Dose Admin Clopidogrel Bisulfate 75 mg 04/23/20 09:00 04/23/20 08:07 Clopidogrel Bisulfate 75 Mg Tab PO 05/23/20 08:59 75 mg DAILY MOMO Administration Finasteride 5 mg 04/23/20 09:00 04/23/20 08:07 Finasteride 5 Mg Tab PO 05/23/20 08:59 5 mg QAM MOMO Administration Fluticasone Propionate 2 sprays 04/23/20 09:00 04/23/20 08:07 Fluticasone Propionate Na Spr 16 Gm Btl NA 05/23/20 08:59 2 sprays QAM MOMO Administration Heparin Sodium (Porcine) 5,000 units 04/22/20 21:00 04/23/20 20:25 Heparin Sod 5,000 Unit/0.5 Ml Vial SQ 05/22/20 20:59 5,000 units Q12 MOMO Administration Dextrose/Sodium Chloride 1,000 mls @ 60 mls/hr 04/22/20 20:30 04/24/20 08:46 D5w And Nss IV 05/22/20 20:29 Infused .[id number] MOMO Infusion Famotidine 20 mg/ Syringe 5 mls @ 2.5 mls/min 04/22/20 21:00 04/23/20 20:24 IV 05/22/20 20:59 2.5 mls/min BID MOMO Administration Pantoprazole Sodium 40 mg/ 10 mls @ 5 mls/min 04/23/20 11:00 04/23/20 12:50 Syringe IV 05/23/20 10:59 5 mls/min DAILY@1100 MOMO Administration Levothyroxine Sodium 125 mcg 04/23/20 06:30 04/24/20 05:44 Levothyroxine Sodium 125 Mcg Tablet PO 05/23/20 06:29 Not Given DAILYBB MOMO Tamsulosin HCl 0.4 mg 04/22/20 21:00 04/23/20 20:25 Tamsulosin Hcl 0.4 Mg Cap PO 05/22/20 20:59 0.4 mg HS MOMO Administration NPO Date Last Intake of Fluids: 04/22/20 Time Last Intake of Fluids: 16:00 Date Last Intake of Solids: 04/21/20 Time Last Intake of Solids: 18:00 Past Medical History Medical History (Updated 04/24/20 @ 08:50 by Breezy Caro MD) Anemia CAD (coronary artery disease) GERD (gastroesophageal reflux disease) HLD (hyperlipidemia) Mitral valve disorder Nephrolithiasis Pacemaker SSS (sick sinus syndrome) Stented coronary artery Syncope TIA (transient ischemic attack) Past Surgical History Surgical History (Updated 04/24/20 @ 08:50 by Breezy Caro MD) H/O colonoscopy H/O hernia repair History of esophagogastroduodenoscopy (EGD) Hx of CABG Hx of tonsillectomy Social History Smoking Status: Never smoker Do You Dip or Chew Tobacco: No Hx Alcohol Use: No Hx Substance Use: No Physical Exam Vital Signs Last Vital Signs Temp 36.5 C 04/24/20 07:11 Pulse 60 04/24/20 07:11 Resp 18 04/24/20 07:11 BP 142/61 H 04/24/20 07:11 Pulse Ox 94 04/24/20 07:11 Testing Laboratory Results 04/23/20 07:07 04/23/20 07:07 PT 13.7 Seconds (9.0-12.0) H 04/22/20 14:31 INR 1.3 (0.9-1.1) H 04/22/20 14:31 APTT 29.0 Seconds (21.0-31.0) 04/22/20 14:31 Urine Color Yellow 04/22/20 17:50 Urine Appearance Clear (Clear) 04/22/20 17:50 Urine pH 7.0 (4.5-7.5) 04/22/20 17:50 Ur Specific [place] 1.008 (1.000-1.030) 04/22/20 17:50 Urine Protein Trace (Negative) H 04/22/20 17:50 Urine Glucose (UA) Negative (Negative) 04/22/20 17:50 Urine Ketones Negative (Negative) 04/22/20 17:50 Urine Nitrite Negative (Negative) 04/22/20 17:50 Ur Leukocyte Esterase Trace (Negative) H 04/22/20 17:50 Urine WBC (Auto) 1-5 /hpf (0-5) 04/22/20 17:50 Urine RBC (Auto) 0-4 /hpf (0-4) 04/22/20 17:50 U Hyaline Cast (Auto) 1-5 /lpf (0-5) 04/22/20 17:50 U Epithel Cells (Auto) 10-20 /lpf (0-5) H 04/22/20 17:50 Urine Bacteria (Auto) Negative (Negative) 04/22/20 17:50 04/22/20 18:10 Aerobic Blood Culture - Preliminary Blood No growth in Aerobic bottle after 24 hours. Anaerobic Blood Culture - Final 04/22/20 17:53 Aerobic Blood Culture - Preliminary Blood No growth in Aerobic bottle after 24 hours. Anaerobic Blood Culture - Preliminary No growth in Anaerobic bottle after 24 hours. Electrocardiogram Date: 04/22/20 HR 61 Atrial-paced rhythm Right bundle branch block Cannot rule out Inferior infarct (cited on or before 18-APR-2020) Abnormal ECG When compared with ECG of 18-APR-2020 13:13, Premature ventricular complexes are no longer Present Confirmed by Herbie Frederick ([id number]) on 04/23/2020 6:02:33 AM Echocardiogram Date: 04/23/20 LV is normal in size. EF 55-60% LV wall motion is normal. RV systolic function is normal. LA is moderately dialted. Moderate to severe MR.
[2020-04-24] MEDS ORDERED: fentaNYL citrate 100 MCG/2 ML VIAL IV PRN (09:21)
[2020-04-24] MEDS ORDERED: ePHEDrine sulfate 50 MG/ML AMP IV PRN (09:21)
[2020-04-24] MEDS ORDERED: ATROPINE SULFATE 0.1 MG/ML 10ML SYR IV PRN (09:21)
[2020-04-24] MEDS ORDERED: ONDANSETRON INJ 2 MG/ML 2 ML VIAL IV PRN ×2 (09:21→15:45)
[2020-04-24] MEDS ORDERED: CEFAZOLIN 2,000 MG/15 ML IV PUSH IV ONE (12:03)
[2020-04-24] MEDS ORDERED: CEFAZOLIN 2000MG 2,000 MG/15 ML SYR IV ONE (12:07)
[2020-04-24] MEDS ORDERED: GLYCOPYRROLATE 0.2 MG/ML VIAL ONE (12:33)
--- NOTE | 2020-04-24 13:16 | Fluoroscopy Report ---
FL retrograde includes kub CLINICAL HISTORY: B/L RETROGRADES/LASER/STENTS COMPARISON STUDY: CT scan dated 04/22/2020 FLUOROSCOPY TIME: 64 seconds. NUMBER OF FLUOROSCOPIC IMAGES: 7 FINDINGS: 7 intraprocedural fluoroscopic spot images are provided for interpretation. The right urete r was catheterized in a retrograde fashion and contrast was instilled. There is mild ureteral dilatat ion. Multiple right ureteral filling defects are visualized. There is dilatation of the right renal c ollecting system which was distorted. Filling defects cannot be excluded on the basis of this study. A right-sided nephroureteral stent was placed. The left ureter was then catheterized in a retrograde fashion. There is a focal ureteral narrowing at the pelvic inlet. There is no significant ureteral di latation. There is a filling defect within the proximal ureter which potentially represents an air bu bble. No collecting system filling defects are visualized. IMPRESSION: Fluoroscopic spot images obtained during a bilateral retrograde study ACT 112: Negative or not required by law. Electronically signed by: Luke Berger M.D. 04/24/2020 12:58 PM
--- NOTE | 2020-04-24 13:38 | Post Operative Brief Note ---
PG Immediate Post Op with CF Date of Surgery April 24, 2020 Pre & Post Diagnosis Operation Date: 04/24/20 09:25 Pre-Op Diagnosis: Obstructing Bladder Stone Post-Op Diagnosis: Obstructing Bladder Stone Prostate Enlargement I identified the patient and participated in the time-out.: Yes Procedure Operation Date: 04/24/20 09:25 Actual Procedures p Cystoscopy,Bilateral Retrograde Pyleogram,Transurethral Resection of Prostate,Right Ureteral Stent Insertion, Laser Cystolitholapaxy and Extraction of Bladder Stones - David Rodriguez, DO Surgeon David Rodriguez, II, DO Financial Underwriter None Estimated Blood Loss 10 Findings Consistent with Post-Op Diagnosis Massive median lobe with obstruction and large bladder stones. Obstruction of right ureter Specimens Specimen Description: A. Prostate Chips B. Bladder Stones Drains Storey Catheter Anesthesia Type General Complications none Disposition Disposition: Recovery Room Overlapping Procedure I was present for: the critical portions of procedure. I was immediately available: during the entire case. Back up surgeon: was not required during procedure.
--- NOTE | 2020-04-24 13:49 | Operative Report ---
PG Post Operative Report Pre & Post Diagnosis Operation Date: 04/24/20 09:25 Pre-Op Diagnosis: Obstructing Bladder Stone Post-Op Diagnosis: Obstructing Bladder Stone Prostate Enlargement I identified the patient and participated in the time-out.: Yes Procedure Operation Date: 04/24/20 09:25 Actual Procedures p Cystoscopy,Bilateral Retrograde Pyleogram,Transurethral Resection of Prostate,Right Ureteral Stent Insertion, Laser Cystolitholapaxy and Extraction of Bladder Stones - David Rodriguez DO Surgeon David Rodriguez, II, DO Radiologist None Estimated Blood Loss 10 Findings Consistent with Post-Op Diagnosis Large Prostate with obstruction and massive bladder stones 7 which were greater than 2cm each and multiple small stones. Specimens Prostate adenoma. Stone Fragments Drains 22Fr Catheter 6 Fr Multilength on right. Anesthesia Type General Complications none Disposition Disposition: Recovery Room Indications Patient with obstruction due to prostate enlargement. Risks and benefits discussed at length. Description of Procedure Patient was consented and brought back to the operating room. Patient was placed under anesthesia in the supine position and moved to the dorsal lithotomy position. Patient was prepped and draped in the regular sterile fashion. A time out was completed. A 30degree Cystoscope was placed into the bladder and the entire bladder was examined. The UO's were identified as well as the bladder neck, trigone, dome, and the other important landmarks. The prostatic urethra and large lobes/adenoma was assessed and the veru and bladder neck identified and area/size was assessed. Massive bladder stones with a very large median lobe that limited assessment of the ureters. The resection scope was placed and the fine bipolar loop was selected. Starting at the 5 and 7 o'clock positions, a channel was created from bladder neck to the veru The Specimen was removed and sent for analysis. The resection bed and any bleeding areas were fulgurated/cauterized and the entire area inspected. All bleeding was controlled. A laser fiber was selected and the massive bladder stones were pulverized to dust and small fragments. These were then flushed out. All stone fragments were removed. At this point, the trigone was able to be assessed. A retrograde pyelogram was completed bilaterally. The left was clear of obstruction. Distally on the right likely a stone was obstructing. A wire was manipulated past with some difficulty. A 6 Fr stent was placed over the wire. It was confirmed in good position. The bladder was inspected a final time. The bladder was emptied and irrigated. All specimen and debris was removed. The scope was removed with the bladder partially full. A catheter was placed and balloon elevated. This was easily irrigated. The patient was cleaned, aroused from anesthesia, and transferred to the pacu in stable condition having tolerated the procedure well with no complications. I was present and participated in all aspects of the procedure. The patient will be monitored in the PACU until transferred. I attest to the content of the Intraoperative Record and any orders documented therein. Any exceptions are noted below.
--- NOTE | 2020-04-24 14:30 | Hospitalist Progress Note ---
Date of Service April 24, 2020 Assessment & Plan (1) Dysphagia: 84-year-old male with recent bilateral total knee arthroplasty, March 27, 2020, History of CAD, mitral regurgitation, sick sinus syndrome status post pacemaker, CKD stage III, GERD and IBS, BPH, other problems noted below presenting with dysphagia x3 weeks. And syncopal episode(LOC for 3 minutes-cannot recollect) on 18 April Dysphagia and odynophagia Rule out esophageal obstruction, dysmotility Started when patient was at rehab post knee surgery, around middle of March Progressive, mostly with solids CT head performed April 18, 2020: No acute process Brain MRI could not be performed as patient is on pacemaker Appreciate GI input and recommendation-we will have EGD today Status post right ureteral stent placement, transurethral resection of prostate, cystoscopy litholapaxy and extraction of bladder stone and cystoscopy with bilateral retrograde pyelogram on 04/24/2020 Received a treatment for presumed UTI started April 18, 2020, urine culture: Positive cocci, 5000 colonies no sensitivities to follow; ciprofloxacin course given at the ER April 18, 2020 Also on Storey catheter for about 2 weeks now for urinary retention noted at rehab Does not have any symptoms of dysuria and/or back pain Fever and/or chills Urologist consulted-appreciate input and recommendation Remains stable following the procedure Syncope Scented to ER with syncopal episode last April 18, 2020 felt to be secondary to UTI CT head at that time: No acute process Per patient's daughter, the patient was at the kitchen table, felt lightheaded, became unresponsive, staring for about 4 minutes, clammy, pale before coming around Will do further investigation EEG to rule out seizure Neurology consultation Pacemaker interrogation, echocardiogram Orthostatic vital signs Denies any neuro symptoms as of this morning Echo remains unremarkable Appreciate neurology input and recommendation History of CAD Continue Plavix, hold atorvastatin Acute issue Mitral regurgitation Euvolemic, monitor while on IV fluids Sinus syndrome, status post pacemaker placement Pacemaker interrogation in light of syncope CKD stage III Stable GERD Convert famotidine Protonix to IV BPH Continue finasteride and Flomax Hypothyroidism Continue levothyroxine History of for skin cancer, monoclonal paraproteinemia Out patient follow-up DVT prophylaxis Heparin subcutaneous every 12 hours in light of recent surgery March 27, 2020 CODE STATUS Full code per patient's daughter at the bedside Admission and Anticipated Discharge Date Admission Date: April 22, 2020 Subjective 04/23/2020 The patient was seen and examined in medical telemetry unit He was admitted with progressive dysphagia and odynophagia and was noted to have right ureteric stone with hydronephrosis Also he has a history of syncopal episode on of last month Has been feeling a lot better this morning Denies any significant symptoms 04/24/2020 Patient is seen and examined in medical telemetry unit He has had cystoscopy and ureteral stent placement with cystoscopy litholapaxy and transurethral resection of prostate Has been feeling weak and tired denies any other symptoms No significant hematuria noted Denies any symptoms of depression and does not want any psych evaluation Review of Systems Review of Systems: All systems reviewed and are unremarkable except as noted below Gastrointestinal: + dysphagia (Odynophagia) Neurologic: + syncope (Syncope on 18 April) Denies any neurological symptoms Physical Exam Physical Exam: Sitting on a chair without any acute distress Constitutional: well developed, well nourished and + ill appearing; no acute distress Eyes: PERRL, conjunctivae normal, anicteric sclerae ENMT: external ear and nose normal, oropharynx normal Neck: trachea midline, no thyromegaly Respiratory: normal respiratory effort; no respiratory distress Auscultation: lungs clear to auscultation bilaterally and + diminished lung sounds; no crackles and no wheezes Cardiovascular: Rate/Rhythm: regular rate and regular rhythm Heart Sounds: no murmur Gastrointestinal (Abdomen): Inspection/Auscultation: abdomen normal to inspection and normal bowel sounds; abdomen not distended Percussion/Palpation: abdomen soft Neurologic: moves all extremities; no focal motor deficits Results & Data Results & Data ([facility]) Vital Signs (Past 12 Hours) Vital Signs Temp Pulse Pulse Resp BP BP Pulse Ox 04/24/20 13:55 60 14 150/69 H 100 04/24/20 13:49 36.5 C 63 12 157/69 H 98 04/24/20 08:56 36.8 C 60 18 154/70 H 95 04/24/20 07:11 36.5 C 60 18 142/61 H 94 04/24/20 03:00 36.9 C 61 18 133/68 92 Medications Administered Current Inpatient Medications Atropine Sulfate (Atropine Sulfate 0.1 Mg/Ml 10ml Syr) 0.5 mg IV Q1M PRN PRN Reason: PACU Use-HR<40 &/or Bradycardi Stop: 04/24/20 17:22 Clopidogrel Bisulfate (Clopidogrel Bisulfate 75 Mg Tab) 75 mg PO DAILY [facility] Stop: 05/23/20 08:59 Last Admin: 04/24/20 14:32 Dose: Not Given Documented by: Ephedrine Sulfate (Ephedrine Sulfate 50 Mg/Ml Amp) 5 mg IV Q5M PRN PRN Reason: PACU Use Only-SBP<90 mmHg Stop: 04/24/20 17:22 Fentanyl Citrate (Fentanyl Citrate 100 Mcg/2 Ml Vial) 25 mcg IV Q5M PRN PRN Reason: PACU Use Only-Pain Stop: 04/24/20 17:22 Finasteride (Finasteride 5 Mg Tab) 5 mg PO QAM [facility] Stop: 05/23/20 08:59 Last Admin: 04/23/20 08:07 Dose: 5 mg Documented by: Fluticasone Propionate (Fluticasone Propionate Na Spr 16 Gm Btl) 2 sprays NA QAM [facility] Stop: 05/23/20 08:59 Last Admin: 04/23/20 08:07 Dose: 2 sprays Documented by: Heparin Sodium (Porcine) (Heparin Sod 5,000 Unit/0.5 Ml Vial) 5,000 units SQ Q12 [facility] Stop: 05/22/20 20:59 Last Admin: 04/24/20 14:31 Dose: Not Given Documented by: Dextrose/Sodium Chloride (D5w And Nss) 1,000 mls @ 60 mls/hr IV .[id number] [facility] Stop: 05/22/20 20:29 Last Infusion: 04/24/20 08:46 Dose: Infused Documented by: Famotidine 20 mg/ Syringe 5 mls @ 2.5 mls/min IV BID [facility] Stop: 05/22/20 20:59 Last Admin: 04/24/20 14:31 Dose: Not Given Documented by: Pantoprazole Sodium 40 mg/ (Syringe) 10 mls @ 5 mls/min IV DAILY@1100 [facility] Stop: 05/23/20 10:59 Last Admin: 04/23/20 12:50 Dose: 5 mls/min Documented by: Acetaminophen (Ofirmev) 1,000 mg in 100 mls @ 400 mls/hr IV Q8H PRN PRN Reason: Pain or Fever Stop: 04/25/20 20:29 Levothyroxine Sodium ([facility] S[facility] 125 Mcg Tablet[facility]: 05/23/20 06:29 Last Admin: 04/24/20 05:44 Dose: Not Given Documented by: Ondansetron HCl (Ondansetron Inj 2 Mg/Ml 2 Ml Vial) 4 mg IV ONCE PRN PRN Reason: PACU Use Only-Nausea/Vomiting Stop: 04/24/20 17:22 Tamsulosin HCl (Tamsulosin Hcl 0.4 Mg Cap) 0.4 mg PO [facility] Stop: 05/22/20 20:59 Last Admin: 04/23/20 20:25 Dose: 0.4 mg Documented by:
[2020-04-24] MEDS: FAMOTIDINE 20 MG in SYRINGE 3 ML IV SCH ×2 (14:31→21:46)
[2020-04-24] MEDS: HEPARIN SOD 5,000 UNIT/0.5 ML VIAL SQ SCH ×2 (14:31→21:41)
[2020-04-24] MEDS: CLOPIDOGREL BISULFATE 75 MG TAB PO SCH (14:32)
[2020-04-24] MEDS: FLUTICASONE PROPIONATE NA SPR 16 GM BTL SCH (14:32)
[2020-04-24] MEDS: FINASTERIDE 5 MG TAB PO SCH (14:32)
[2020-04-24] MEDS: PANTOprazole 40 MG in SYRINGE 0 ML IV SCH (14:43)
[2020-04-24] MEDS ORDERED: Nursing to Pharmacy Communication SCH (14:45)
--- NOTE | 2020-04-24 17:41 | Anesthesiology Progress Note ---
Date of Service April 24, 2020 Anesthesia Post Procedure Vital Signs Vital Signs: Temp Pulse Pulse Pulse Resp BP BP 04/24/20 14:45 60 18 110/61 04/24/20 14:13 36.5 C 68 148/71 H 04/24/20 13:55 60 14 150/69 H 04/24/20 13:49 36.5 C 63 12 157/69 H 04/24/20 08:56 36.8 C 60 18 154/70 H 04/24/20 07:11 36.5 C 60 18 142/61 H 04/24/20 03:00 36.9 C 61 18 133/68 04/23/20 23:00 36.9 C 61 20 130/60 04/23/20 22:20 65 04/23/20 19:00 36.9 C 68 20 126/70 Pulse Ox 04/24/20 14:45 99 04/24/20 14:13 96 04/24/20 13:55 100 04/24/20 13:49 98 04/24/20 08:56 95 04/24/20 07:11 94 04/24/20 03:00 92 04/23/20 23:00 97 04/23/20 22:20 04/23/20 19:00 98 Transfer of Care Handoff Completed per policy Notes Mental Status: alert / awake / arousable and participated in evaluation Patient Amnestic to Procedure: Yes Nausea / Vomiting: adequately controlled Pain: adequately controlled Airway Patency, RR, SpO2: stable & adequate BP & HR: stable & adequate Hydration State: stable & adequate Anesthetic Complications: no major complications apparent and Pt Satisfied with anesthetic care
[2020-04-24] MEDS: D5W AND NSS 1,000 ML IV SCH (18:39)
[2020-04-24 20:55] LABS: Basophils # (auto) 0.01 K/uL (0-0.2); Basophils % (auto) 0.1 %; Eosinophils # (auto) 0.01 K/uL (0-0.5); Eosinophils % (auto) 0.1 %; Hematocrit (blood only) 30.1 % (42-52); Hemoglobin 8.9 g/dL (14.0-18.0); Immature Granulocytes # (auto) 0.02 K/uL (0.00-0.02); Immature Granulocytes % (auto) 0.2 %; Lymphocytes # (auto) 0.25 K/uL (1.2-3.4); Lymphocytes % (auto) 2.8 %; Mean Corpuscular Hemoglobin 29.2 pg (25-34); Mean Corpuscular Hgb Conc 29.6 g/dL (32-36); Mean Corpuscular Volume 98.7 fL (80-100); Mean Platelet Volume 8.6 fL (7.4-10.4); Monocytes % (auto) 5.6 %; Neutrophils # (auto) 8.13 K/uL (1.4-6.5); Neutrophils % (auto) 91.2 %; Platelet Count 477 K/uL (130-400); RDW Coefficient of Variation 14.9 % (11.5-14.5); RDW Standard Deviation 53.7 fL (36.4-46.3); Red Blood Count 3.05 M/uL (4.7-6.1); White Blood Count 8.92 K/uL (4.8-10.8)
[2020-04-24] MEDS: TAMSULOSIN HCL 0.4 MG CAP PO SCH (21:42)
[2020-04-25] MEDS ORDERED: SODIUM CHLORIDE 0.9% 500 ML IV SCH (02:30)
[2020-04-25] MEDS ORDERED: Nursing to Pharmacy Communication SCH (04:00)
[2020-04-25] MEDS: LEVOTHYROXINE SODIUM 125 MCG TABLET PO SCH (05:55)
[2020-04-25 06:56] LABS: Basophils # (auto) 0.01 K/uL (0-0.2); Basophils % (auto) 0.2 %; Eosinophils # (auto) 0.13 K/uL (0-0.5); Eosinophils % (auto) 2.7 %; Hematocrit (blood only) 24.9 % (42-52); Hemoglobin 7.9 g/dL (14.0-18.0); Immature Granulocytes # (auto) 0.01 K/uL (0.00-0.02); Immature Granulocytes % (auto) 0.2 %; Lymphocytes # (auto) 0.68 K/uL (1.2-3.4); Lymphocytes % (auto) 14.2 %; Mean Corpuscular Hemoglobin 30.6 pg (25-34); Mean Corpuscular Hgb Conc 31.7 g/dL (32-36); Mean Corpuscular Volume 96.5 fL (80-100); Mean Platelet Volume 8.7 fL (7.4-10.4); Monocytes % (auto) 12.6 %; Neutrophils # (auto) 3.35 K/uL (1.4-6.5); Neutrophils % (auto) 70.1 %; Platelet Count 395 K/uL (130-400); RDW Coefficient of Variation 14.9 % (11.5-14.5); RDW Standard Deviation 52.6 fL (36.4-46.3); Red Blood Count 2.58 M/uL (4.7-6.1); White Blood Count 4.78 K/uL (4.8-10.8)
[2020-04-25 07:20] LABS: RBC Morphology Unremarkable
--- NOTE | 2020-04-25 07:28 | Urology Progress Note ---
Date of Service April 25, 2020 Assessment & Plan (1) Storey catheter in place: (2) Nephrolithiasis: Postop day #1 status post partial TURP, cystoscopy laser litholapaxy and ureteral stent placement Storey draining appropriately Subjectively feeling well I believe he is stable for discharge home I sent him home with a catheter and we will arrange outpatient follow-up for definitive treatment of his kidney stones Admission and Anticipated Discharge Date Admission Date: April 22, 2020 Subjective Denies any subjective complaints this morning Reports that his catheter drained well He has no pain No fevers, chills, rigors Physical Exam Physical Exam: Urine relatively clear vessel for independent portion of the bag Constitutional: well developed and well nourished Respiratory: no respiratory distress Cardiovascular: Extremities: no pedal edema Gastrointestinal (Abdomen): Inspection/Auscultation: abdomen normal to inspection Results & [facility] Vital Signs (Past 12 Hours) Vital Signs Temp Pulse Pulse Resp BP Pulse Ox 04/25/20 07:00 37.5 C 62 20 127/60 91 04/25/20 04:00 36.7 C 59 L 20 92 04/25/20 03:14 118/51 L 04/25/20 02:10 116/51 L 04/25/20 01:15 128/51 L 04/24/20 23:00 36.8 C 60 18 128/49 L 96 04/24/20 22:20 71 PG Care Time/CCT Total # of Minutes Spent Total Time Spent with Patient: Total time spent is greater than 50% in coordination of care (as documented) at patient's floor/unit and/or counseling patient: Coding Level of Care Code 74146 Subseq Hosp Care Lvl [address] Z97.8 Nephrolithiasis N20.0
[2020-04-25 07:29] LABS: BUN Creatinine Ratio 12.5 (10-20); Calcium 8.6 mg/dl (8.5-10.1); Creatinine Clr Calc Pharmacy 48.9 ml/min; Est GFR (African American) 59.5; Est GFR (Non-African American) 51.3; Potassium 4.2 mmol/L (3.5-5.1)
[2020-04-25] MEDS: HEPARIN SOD 5,000 UNIT/0.5 ML VIAL SQ SCH ×2 (08:35→21:03)
[2020-04-25] MEDS: CLOPIDOGREL BISULFATE 75 MG TAB PO SCH (08:35)
[2020-04-25] MEDS: FLUTICASONE PROPIONATE NA SPR 16 GM BTL SCH (08:35)
[2020-04-25] MEDS: FAMOTIDINE 20 MG in SYRINGE 3 ML IV SCH ×2 (08:36→21:03)
--- NOTE | 2020-04-25 12:09 | Fluoroscopy Report ---
MODIFIED BARIUM SWALLOW CLINICAL HISTORY: solid food dysphagia COMPARISON STUDY: Upper GI series July 21, 2011. FLUOROSCOPY TIME: 3.9 minutes. TECHNIQUE: A modified barium swallow was performed in conjunction with Speech Pathology. The patient ingested varying consistencies of barium containing material. Video fluoroscopy was performed. FINDINGS: Note was made of silent tracheal aspiration with thin liquids. There was also made of proba ble silent tracheal aspiration with nectar thick liquids. There is no aspiration with pudding or crac kers with paste. IMPRESSION: 1. Silent tracheal aspiration with thin liquids and nectar thick liquids. 2. No tracheal aspiration with pudding or crackers with paste. 3. Full recommendations by speech pathology to follow. ACT 112: Negative or not required by law. Electronically signed by: Joey Stoner M.D. 04/25/2020 12:08 PM
--- NOTE | 2020-04-25 12:11 | Fluoroscopy Report ---
FL barium swallow CLINICAL HISTORY: solid food dysphagia COMPARISON STUDY: Upper GI series July 21, 2011. Fluoroscopy time: 0.6 minutes. Number fluoroscopic images: 15. FINDINGS: This exam was not completed due to tracheal aspiration during this exam. Therefore, the eso phagus is suboptimally assessed. However, no definite mass or stricture was identified. Mucosal detai l is diminished on this exam. Reflux could not be assessed for. There are median sternotomy wires and a dual lead left subclavian pacemaker. IMPRESSION: Incomplete examination due to tracheal aspiration. Suboptimal evaluation of the esophagus but no mass or stricture identified. ACT 112: Negative or not required by law. Electronically signed by: Joey Stoner M.D. 04/25/2020 12:09 PM
[2020-04-25] MEDS: PANTOprazole 40 MG in SYRINGE 0 ML IV SCH (12:29)
[2020-04-25] MEDS: FINASTERIDE 5 MG TAB PO SCH (12:30)
[2020-04-25] MEDS: D5W AND NSS 1,000 ML IV SCH (12:31)
--- NOTE | 2020-04-25 12:55 | Hospitalist Progress Note ---
Date of Service April 25, 2020 Assessment & Plan (1) Dysphagia: 84-year-old male with recent bilateral total knee arthroplasty, March 27, 2020, History of CAD, mitral regurgitation, sick sinus syndrome status post pacemaker, CKD stage III, GERD and IBS, BPH, other problems noted below presenting with dysphagia x3 weeks. And syncopal episode(LOC for 3 minutes-cannot recollect) on 18 April Dysphagia and odynophagia Rule out esophageal obstruction, dysmotility Started when patient was at rehab post knee surgery, around middle of March Progressive, mostly with solids CT head performed April 18, 2020: No acute process Brain MRI could not be performed as patient is on pacemaker Appreciate GI input and recommendation Status post EGD without significant findings and the esophagus was dilated Appreciate speech therapy evaluation A.m. swallow has been reported with some abnormal findings and awaiting speech therapy recommendation for diet Status post right ureteral stent placement, transurethral resection of prostate, cystoscopy litholapaxy and extraction of bladder stone and cystoscopy with bilateral retrograde pyelogram on 04/24/2020 Received a treatment for presumed UTI started April 18, 2020, urine culture: Positive cocci, 5000 colonies no sensitivities to follow; ciprofloxacin course given at the ER April 18, 2020 Also on Storey catheter for about 2 weeks now for urinary retention noted at rehab Does not have any symptoms of dysuria and/or back pain Fever and/or chills Urologist consulted-appreciate input and recommendation Remains stable following the procedure Can be discharged as per urologist Syncope Scented to ER with syncopal episode last April 18, 2020 felt to be secondary to UTI CT head at that time: No acute process Per patient's daughter, the patient was at the kitchen table, felt lightheaded, became unresponsive, staring for about 4 minutes, clammy, pale before coming around Will do further investigation EEG to rule out seizure Neurology consultation Pacemaker interrogation, echocardiogram Orthostatic vital signs Denies any neuro symptoms as of this morning Echo remains unremarkable Appreciate neurology input and recommendation No more symptoms We will get PT and OT evaluation for possible discharge today and/or tomorrow History of CAD Continue Plavix, hold atorvastatin Acute issue Mitral regurgitation Euvolemic, monitor while on IV fluids Sinus syndrome, status post pacemaker placement Pacemaker interrogation in light of syncope CKD stage III Stable GERD Convert famotidine Protonix to IV BPH Continue finasteride and Flomax Hypothyroidism Continue levothyroxine History of for skin cancer, monoclonal paraproteinemia Out patient follow-up DVT prophylaxis Heparin subcutaneous every 12 hours in light of recent surgery March 27, 2020 CODE STATUS Full code per patient's daughter at the bedside Awaiting PT and OT evaluation for possible discharge today and/or tomorrow Admission and Anticipated Discharge Date Admission Date: April 22, 2020 Subjective 04/23/2020 The patient was seen and examined in medical telemetry unit He was admitted with progressive dysphagia and odynophagia and was noted to have right ureteric stone with hydronephrosis Also he has a history of syncopal episode on of last month Has been feeling a lot better this morning Denies any significant symptoms 04/24/2020 Patient is seen and examined in medical telemetry unit He has had cystoscopy and ureteral stent placement with cystoscopy litholapaxy and transurethral resection of prostate Has been feeling weak and tired denies any other symptoms No significant hematuria noted Denies any symptoms of depression and does not want any psych evaluation 04/25/2020 The patient was seen and examined in medical telemetry unit He has been feeling a lot better today and awaiting barium swallow study He denies any significant symptoms We will have PT and OT evaluation and speech therapy recommendation before discharge home either today and/or tomorrow Review of Systems Review of Systems: All systems reviewed and are unremarkable except as noted below Gastrointestinal: no dysphagia (Odynophagia) Neurologic: + syncope (Syncope on 18 April) Denies any neurological symptoms Physical Exam Physical Exam: Sitting on a chair without any acute distress Constitutional: well developed and well nourished; no acute distress and not ill appearing Eyes: PERRL, conjunctivae normal, anicteric sclerae ENMT: external ear and nose normal, oropharynx normal Neck: trachea midline, no thyromegaly Respiratory: normal respiratory effort; no respiratory distress Auscultation: lungs clear to auscultation bilaterally and + diminished lung sounds; no crackles and no wheezes Cardiovascular: Rate/Rhythm: regular rate and regular rhythm Heart Sounds: no murmur Gastrointestinal (Abdomen): Inspection/Auscultation: abdomen normal to inspection and normal bowel sounds; abdomen not distended Percussion/Palpation: abdomen soft Neurologic: moves all extremities; no focal motor deficits Alert, awake and oriented x3 Results & Data Results & Data ([facility]) Vital Signs (Past 12 Hours) Vital Signs Temp Pulse Pulse Resp BP Pulse Ox 04/25/20 11:02 60 04/25/20 07:00 37.5 C 62 20 127/60 91 04/25/20 04:00 36.7 C 59 L 20 92 04/25/20 03:14 118/51 L 04/25/20 02:10 116/51 L 04/25/20 01:15 128/51 L Laboratory Results Short CBC 04/24/20 04/25/20 Range/Units 20:44 06:40 WBC 8.92 4.78 L (4.8-10.8) K/uL Hgb 8.9 L 7.9 L (14.0-18.0) g/dL Hct 30.1 L 24.9 L (42-52) % Plt Count 477 H 395 (130-400) K/uL BMP 04/25/20 06:40 Sodium 141 Potassium 4.2 Chloride 108 H Carbon Dioxide 28 BUN 16 Creatinine 1.26 Glucose 92 Calcium 8.6 Medications Administered Current Inpatient Medications Clopidogrel Bisulfate (Clopidogrel Bisulfate 75 Mg Tab) 75 mg PO DAILY [facility] Stop: 05/23/20 08:59 Last Admin: 04/25/20 08:35 Dose: Not Given Documented by: Finasteride (Finasteride 5 Mg Tab) 5 mg PO QAM [facility] Stop: 05/23/20 08:59 Last Admin: 04/25/20 12:30 Dose: 5 mg Documented by: Fluticasone Propionate (Fluticasone Propionate Na Spr 16 Gm Btl) 2 sprays NA QAM [facility] Stop: 05/23/20 08:59 Last Admin: 04/25/20 08:35 Dose: 2 sprays Documented by: Heparin Sodium (Porcine) (Heparin Sod 5,000 Unit/0.5 Ml Vial) 5,000 units SQ Q12 [facility] Stop: 05/22/20 20:59 Last Admin: 04/25/20 08:35 Dose: Not Given Documented by: Dextrose/Sodium Chloride (D5w And Nss) 1,000 mls @ 60 mls/hr IV .[id number] [facility] Stop: 05/22/20 20:29 Last Admin: 04/25/20 12:31 Dose: 60 mls/hr Documented by: Famotidine 20 mg/ Syringe 5 mls @ 2.5 mls/min IV BID [facility] Stop: 05/22/20 20:59 Last Admin: 04/25/20 08:36 Dose: 2.5 mls/min Documented by: Pantoprazole Sodium 40 mg/ (Syringe) 10 mls @ 5 mls/min IV DAILY@1100 [facility] Stop: 05/23/20 10:59 Last Admin: 04/25/20 12:29 Dose: 5 mls/min Documented by: Acetaminophen (Ofirmev) 1,000 mg in 100 mls @ 400 mls/hr IV Q8H PRN PRN Reason: Pain or Fever Stop: 04/25/20 20:29 Levothyroxine Sodium (Levothyroxine Sodium 125 Mcg Tablet) 125 mcg PO DAILYBB [facility] Stop: 05/23/20 06:29 Last Admin: 04/25/20 05:55 Dose: Not Given Documented by: Ondansetron HCl (Ondansetron Inj 2 Mg/Ml 2 Ml Vial) 4 mg IV Q6H PRN PRN Reason: Nausea Stop: 05/24/20 15:44 Tamsulosin HCl (Tamsulosin Hcl 0.4 Mg Cap) 0.4 mg PO HS [facility] Stop: 05/22/20 20:59 Last Admin: 04/24/20 21:42 Dose: 0.4 mg Documented by:
[2020-04-25] MEDS: TAMSULOSIN HCL 0.4 MG CAP PO SCH (21:03)
[2020-04-26] MEDS: D5W AND NSS 1,000 ML IV SCH ×2 (05:35→21:10)
[2020-04-26] MEDS: LEVOTHYROXINE SODIUM 125 MCG TABLET PO SCH (05:36)
[2020-04-26] MEDS: FLUTICASONE PROPIONATE NA SPR 16 GM BTL SCH (07:44)
[2020-04-26] MEDS: FINASTERIDE 5 MG TAB PO SCH (07:44)
[2020-04-26] MEDS: FAMOTIDINE 20 MG in SYRINGE 3 ML IV SCH ×2 (08:20→21:09)
[2020-04-26 10:36] LABS: Basophils # (auto) 0.01 K/uL (0-0.2); Basophils % (auto) 0.2 %; Eosinophils # (auto) 0.16 K/uL (0-0.5); Eosinophils % (auto) 2.9 %; Hematocrit (blood only) 27.8 % (42-52); Hemoglobin 8.7 g/dL (14.0-18.0); Immature Granulocytes # (auto) 0.01 K/uL (0.00-0.02); Immature Granulocytes % (auto) 0.2 %; Lymphocytes # (auto) 0.58 K/uL (1.2-3.4); Lymphocytes % (auto) 10.4 %; Mean Corpuscular Hemoglobin 30.4 pg (25-34); Mean Corpuscular Hgb Conc 31.3 g/dL (32-36); Mean Corpuscular Volume 97.2 fL (80-100); Mean Platelet Volume 8.7 fL (7.4-10.4); Monocytes # (auto) 0.68 K/uL (0.11-0.59); Monocytes % (auto) 12.1 %; Neutrophils # (auto) 4.16 K/uL (1.4-6.5); Neutrophils % (auto) 74.2 %; Platelet Count 401 K/uL (130-400); RDW Coefficient of Variation 14.8 % (11.5-14.5); Red Blood Count 2.86 M/uL (4.7-6.1)
[2020-04-26] MEDS: PANTOprazole 40 MG in SYRINGE 0 ML IV SCH (11:14)
--- NOTE | 2020-04-26 11:27 | Hospitalist Progress Note ---
Date of Service April 26, 2020 Assessment & Plan (1) Dysphagia: 84-year-old male with recent bilateral total knee arthroplasty, March 27, 2020, History of CAD, mitral regurgitation, sick sinus syndrome status post pacemaker, CKD stage III, GERD and IBS, BPH, other problems noted below presenting with dysphagia x3 weeks. And syncopal episode(LOC for 3 minutes-cannot recollect) on 18 April Dysphagia and odynophagia Rule out esophageal obstruction, dysmotility Started when patient was at rehab post knee surgery, around middle of March Progressive, mostly with solids CT head performed April 18, 2020: No acute process Brain MRI could not be performed as patient is on pacemaker Appreciate GI input and recommendation Status post EGD without significant findings and the esophagus was dilated Appreciate speech therapy evaluation Barium swallow has been reported with some abnormal findings and awaiting speech therapy recommendation for diet Has been tolerating recommended diet Status post right ureteral stent placement, transurethral resection of prostate, cystoscopy litholapaxy and extraction of bladder stone and cystoscopy with bilateral retrograde pyelogram on 04/24/2020 Received a treatment for presumed UTI started April 18, 2020, urine culture: Positive cocci, 5000 colonies no sensitivities to follow; ciprofloxacin course given at the ER April 18, 2020 Also on Storey catheter for about 2 weeks now for urinary retention noted at rehab Does not have any symptoms of dysuria and/or back pain Fever and/or chills Urologist consulted-appreciate input and recommendation Remains stable following the procedure Can be discharged as per urologist Continues to have mild to moderate hematuria-hemoglobin remains stable We will continue Plavix Syncope Scented to ER with syncopal episode last April 18, 2020 felt to be secondary to UTI CT head at that time: No acute process Per patient's daughter, the patient was at the kitchen table, felt lightheaded, became unresponsive, staring for about 4 minutes, clammy, pale before coming around Will do further investigation EEG to rule out seizure Neurology consultation Pacemaker interrogation, echocardiogram Orthostatic vital signs Denies any neuro symptoms as of this morning Echo remains unremarkable Appreciate neurology input and recommendation No more symptoms We will get PT and OT evaluation We will continue PT and OT while in the hospital History of CAD Continue Plavix, hold atorvastatin Acute issue Mitral regurgitation Euvolemic, monitor while on IV fluids Sinus syndrome, status post pacemaker placement Pacemaker interrogation in light of syncope CKD stage III Stable GERD Convert famotidine Protonix to IV BPH Continue finasteride and Flomax Hypothyroidism Continue levothyroxine History of for skin cancer, monoclonal paraproteinemia Out patient follow-up DVT prophylaxis Heparin subcutaneous every 12 hours in light of recent surgery March 27, 2020 CODE STATUS Full code per patient's daughter at the bedside Awaiting PT and OT evaluation Admission and Anticipated Discharge Date Admission Date: April 22, 2020 Subjective 04/23/2020 The patient was seen and examined in medical telemetry unit He was admitted with progressive dysphagia and odynophagia and was noted to have right ureteric stone with hydronephrosis Also he has a history of syncopal episode on of last month Has been feeling a lot better this morning Denies any significant symptoms 04/24/2020 Patient is seen and examined in medical telemetry unit He has had cystoscopy and ureteral stent placement with cystoscopy litholapaxy and transurethral resection of prostate Has been feeling weak and tired denies any other symptoms No significant hematuria noted Denies any symptoms of depression and does not want any psych evaluation 04/25/2020 The patient was seen and examined in medical telemetry unit He has been feeling a lot better today and awaiting barium swallow study He denies any significant symptoms We will have PT and OT evaluation and speech therapy recommendation before discharge home either today and/or tomorrow 04/26/2020 The patient was seen and examined in medical telemetry unit He has been feeling a lot better but he still continues to have hematuria Denies any symptoms and has been tolerating diet as advised by speech therapist Review of Systems Review of Systems: All systems reviewed and are unremarkable except as noted below Neurologic: + syncope (Syncope on 18 April) Denies any neurological symptoms Physical Exam Physical Exam: Sitting on a chair without any acute distress Constitutional: well developed and well nourished; no acute distress and not ill appearing Eyes: PERRL, conjunctivae normal, anicteric sclerae ENMT: external ear and nose normal, oropharynx normal Neck: trachea midline, no thyromegaly Respiratory: normal respiratory effort; no respiratory distress Auscultation: lungs clear to auscultation bilaterally and + diminished lung sounds; no crackles and no wheezes Cardiovascular: Rate/Rhythm: regular rate and regular rhythm Heart Sounds: no murmur Gastrointestinal (Abdomen): Inspection/Auscultation: abdomen normal to inspection and normal bowel sounds; abdomen not distended Percussion/Palpation: abdomen soft Musculoskeletal: No acute arthritis in any of the joints Neurologic: moves all extremities; no focal motor deficits Genitourinary: Continues to have hematuria but seems to be improving Results & Data Results & Data ([facility]) Vital Signs (Past 12 Hours) Vital Signs Temp Pulse Pulse Resp BP Pulse Ox 04/26/20 11:07 37.0 C 86 18 141/69 H 95 04/26/20 07:08 36.7 C 60 16 155/64 H 94 04/26/20 04:31 37.0 C 60 19 145/68 H 93 04/26/20 00:48 81 04/26/20 00:02 36.4 C L 66 18 148/68 H 96 Laboratory Results Short CBC 04/26/20 Range/Units 10:22 WBC 5.60 (4.8-10.8) K/uL Hgb 8.7 L (14.0-18.0) g/dL Hct 27.8 L (42-52) % Plt Count 401 H (130-400) K/uL Medications Administered Current Inpatient Medications Clopidogrel Bisulfate (Clopidogrel Bisulfate 75 Mg Tab) 75 mg PO DAILY [facility] Stop: 05/23/20 08:59 Last Admin: 04/25/20 08:35 Dose: Not Given Documented by: Finasteride (Finasteride 5 Mg Tab) 5 mg PO QAM [facility] Stop: 05/23/20 08:59 Last Admin: 04/26/20 07:44 Dose: 5 mg Documented by: Fluticasone Propionate (Fluticasone Propionate Na Spr 16 Gm Btl) 2 sprays NA QAM [facility] Stop: 05/23/20 08:59 Last Admin: 04/26/20 07:44 Dose: 2 sprays Documented by: Heparin Sodium (Porcine) (Heparin Sod 5,000 Unit/0.5 Ml Vial) 5,000 units SQ Q12 [facility] Stop: 05/22/20 20:59 Last Admin: 04/25/20 21:03 Dose: 5,000 units Documented by: Dextrose/Sodium Chloride (D5w And Nss) 1,000 mls @ 60 mls/hr IV .[id number] [facility] Stop: 05/22/20 20:29 Last Admin: 04/26/20 05:35 Dose: 60 mls/hr Documented by: Famotidine 20 mg/ Syringe 5 mls @ 2.5 mls/min IV BID [facility] Stop: 05/22/20 20:59 Last Admin: 04/26/20 08:20 Dose: 2.5 mls/min Documented by: Pantoprazole Sodium 40 mg/ (Syringe) 10 mls @ 5 mls/min IV DAILY@1100 [facility] Stop: 05/23/20 10:59 Last Admin: 04/26/20 11:14 Dose: 5 mls/min Documented by: Levothyroxine Sodium (Levothyroxine Sodium 125 Mcg Tablet) 125 mcg PO DAILYBB [facility] Stop: 05/23/20 06:29 Last Admin: 04/26/20 05:36 Dose: 125 mcg Documented by: Ondansetron HCl (Ondansetron Inj 2 Mg/Ml 2 Ml Vial) 4 mg IV Q6H PRN PRN Reason: Nausea Stop: 05/24/20 15:44 Tamsulosin HCl (Tamsulosin Hcl 0.4 Mg Cap) 0.4 mg PO HS [facility] Stop: 05/22/20 20:59 Last Admin: 04/25/20 21:03 Dose: 0.4 mg Documented by:
[2020-04-26] MEDS: CLOPIDOGREL BISULFATE 75 MG TAB PO SCH (12:14)
[2020-04-26] MEDS: HEPARIN SOD 5,000 UNIT/0.5 ML VIAL SQ SCH ×2 (12:34→21:10)
[2020-04-26] MEDS: TAMSULOSIN HCL 0.4 MG CAP PO SCH (21:12)
[2020-04-27] MEDS: LEVOTHYROXINE SODIUM 125 MCG TABLET PO SCH (06:30)
[2020-04-27] MEDS: FLUTICASONE PROPIONATE NA SPR 16 GM BTL SCH (08:11)
[2020-04-27] MEDS: FINASTERIDE 5 MG TAB PO SCH (08:11)
[2020-04-27] MEDS: CLOPIDOGREL BISULFATE 75 MG TAB PO SCH (08:11)
[2020-04-27] MEDS: FAMOTIDINE 20 MG in SYRINGE 3 ML IV SCH (08:17)
[2020-04-27] MEDS: HEPARIN SOD 5,000 UNIT/0.5 ML VIAL SQ SCH (08:20)
[2020-04-27] MEDS ORDERED: PANTOprazole 40 MG TAB PO SCH (09:00)
--- NOTE | 2020-04-27 10:47 | Hospitalist Progress Note ---
Date of Service April 27, 2020 Assessment & Plan (1) Dysphagia: 84-year-old male with recent bilateral total knee arthroplasty, March 27, 2020, History of CAD, mitral regurgitation, sick sinus syndrome status post pacemaker, CKD stage III, GERD and IBS, BPH, other problems noted below presenting with dysphagia x3 weeks. And syncopal episode(LOC for 3 minutes-cannot recollect) on 18 April Dysphagia and odynophagia Rule out esophageal obstruction, dysmotility Started when patient was at rehab post knee surgery, around middle of March Progressive, mostly with solids CT head performed April 18, 2020: No acute process Brain MRI could not be performed as patient is on pacemaker Appreciate GI input and recommendation Status post EGD without significant findings and the esophagus was dilated Appreciate speech therapy evaluation Barium swallow has been reported with some abnormal findings and awaiting speech therapy recommendation for diet Has been tolerating recommended diet No symptoms with swallowing anymore-will be discharged home this afternoon Status post right ureteral stent placement, transurethral resection of prostate, cystoscopy litholapaxy and extraction of bladder stone and cystoscopy with bilateral retrograde pyelogram on 04/24/2020 Received a treatment for presumed UTI started April 18, 2020, urine culture: Positive cocci, 5000 colonies no sensitivities to follow; ciprofloxacin course given at the ER April 18, 2020 Also on Storey catheter for about 2 weeks now for urinary retention noted at rehab Does not have any symptoms of dysuria and/or back pain Fever and/or chills Urologist consulted-appreciate input and recommendation Remains stable following the procedure Can be discharged as per urologist Continues to have mild to moderate hematuria-hemoglobin remains stable We will continue Plavix Will have an appointment with a urologist as an outpatient as planned Syncope Scented to ER with syncopal episode last April 18, 2020 felt to be secondary to UTI CT head at that time: No acute process Per patient's daughter, the patient was at the kitchen table, felt lightheaded, became unresponsive, staring for about 4 minutes, clammy, pale before coming around Will do further investigation EEG to rule out seizure Neurology consultation Pacemaker interrogation, echocardiogram Orthostatic vital signs Denies any neuro symptoms as of this morning Echo remains unremarkable Appreciate neurology input and recommendation No more symptoms We will get PT and OT evaluation We will continue PT and OT while in the hospital-recommended home Denies any neurological symptoms History of CAD Continue Plavix, hold atorvastatin Acute issue Mitral regurgitation Euvolemic, monitor while on IV fluids Sinus syndrome, status post pacemaker placement Pacemaker interrogation in light of syncope CKD stage III Stable GERD Convert famotidine Protonix to IV BPH Continue finasteride and Flomax Hypothyroidism Continue levothyroxine History of for skin cancer, monoclonal paraproteinemia Out patient follow-up DVT prophylaxis Heparin subcutaneous every 12 hours in light of recent surgery March 27, 2020 CODE STATUS Full code per patient's daughter at the bedside Awaiting PT and OT evaluation-recommended home Will be discharged home this afternoon Admission and Anticipated Discharge Date Admission Date: April 22, 2020 Subjective 04/23/2020 The patient was seen and examined in medical telemetry unit He was admitted with progressive dysphagia and odynophagia and was noted to have right ureteric stone with hydronephrosis Also he has a history of syncopal episode on of last month Has been feeling a lot better this morning Denies any significant symptoms 04/24/2020 Patient is seen and examined in medical telemetry unit He has had cystoscopy and ureteral stent placement with cystoscopy litholapaxy and transurethral resection of prostate Has been feeling weak and tired denies any other symptoms No significant hematuria noted Denies any symptoms of depression and does not want any psych evaluation 04/25/2020 The patient was seen and examined in medical telemetry unit He has been feeling a lot better today and awaiting barium swallow study He denies any significant symptoms We will have PT and OT evaluation and speech therapy recommendation before discharge home either today and/or tomorrow 04/26/2020 The patient was seen and examined in medical telemetry unit He has been feeling a lot better but he still continues to have hematuria Denies any symptoms and has been tolerating diet as advised by speech therapist 04/27/2020 The patient was seen and examined in medical telemetry unit He has been feeling a lot better and the hematuria seems to be under control He has been eating well and has had PT and OT evaluation He wants to go home today Review of Systems Review of Systems: All systems reviewed and are unremarkable except as noted below Neurologic: + syncope (Syncope on 18 April) Denies any neurological symptoms Physical Exam Physical Exam: Sitting on a chair without any acute distress Constitutional: well developed and well nourished; no acute distress and not ill appearing Eyes: PERRL, conjunctivae normal, anicteric sclerae ENMT: external ear and nose normal, oropharynx normal Neck: trachea midline, no thyromegaly Respiratory: normal respiratory effort; no respiratory distress Auscultation: lungs clear to auscultation bilaterally and + diminished lung sounds; no crackles and no wheezes Cardiovascular: Rate/Rhythm: regular rate and regular rhythm Heart Sounds: no murmur Extremities: + edema (Trace edema bilaterally) Gastrointestinal (Abdomen): Inspection/Auscultation: abdomen normal to inspection and normal bowel sounds; abdomen not distended Percussion/Palpation: abdomen soft Musculoskeletal: No acute arthritis involving any joints Neurologic: moves all extremities; no focal motor deficits Alert, awake and oriented x3 Genitourinary: Has Storey catheter in place Lymphatic: no cervical or axillary lymphadenopathy Results & Data Results & Data ([facility]) Vital Signs (Past 12 Hours) Vital Signs Temp Pulse Pulse Resp BP Pulse Ox 04/27/20 09:43 60 04/27/20 07:18 37.2 C 84 18 137/56 L 96 04/27/20 04:31 37.1 C 66 18 157/72 H 93 04/27/20 03:23 60 04/26/20 23:42 36.9 C 60 18 155/69 H 97 Medications Administered Current Inpatient Medications Clopidogrel Bisulfate (Clopidogrel Bisulfate 75 Mg Tab) 75 mg PO DAILY [facility] Stop: 05/23/20 08:59 Last Admin: 04/27/20 08:11 Dose: 75 mg Documented by: Finasteride (Finasteride 5 Mg Tab) 5 mg PO QAM [facility] Stop: 05/23/20 08:59 Last Admin: 04/27/20 08:11 Dose: 5 mg Documented by: Fluticasone Propionate (Fluticasone Propionate Na Spr 16 Gm Btl) 2 sprays NA QAM [facility] Stop: 05/23/20 08:59 Last Admin: 04/27/20 08:11 Dose: 2 sprays Documented by: Heparin Sodium (Porcine) (Heparin Sod 5,000 Unit/0.5 Ml Vial) 5,000 units SQ Q12 [facility] Stop: 05/22/20 20:59 Last Admin: 04/27/20 08:20 Dose: Not Given Documented by: Dextrose/Sodium Chloride (D5w And Nss) 1,000 mls @ 60 mls/hr IV .[id number] [facility] Stop: 05/22/20 20:29 Last Admin: 04/26/20 21:10 Dose: 60 mls/hr Documented by: Famotidine 20 mg/ Syringe 5 mls @ 2.5 mls/min IV BID [facility] Stop: 05/22/20 20:59 Last Admin: 04/27/20 08:17 Dose: 2.5 mls/min Documented by: Levothyroxine Sodium (Levothyroxine Sodium 125 Mcg Tablet) 125 mcg PO DAILYBB [facility] Stop: 05/23/20 06:29 Last Admin: 04/27/20 06:30 Dose: 125 mcg Documented by: Ondansetron HCl (Ondansetron Inj 2 Mg/Ml 2 Ml Vial) 4 mg IV Q6H PRN PRN Reason: Nausea Stop: 05/24/20 15:44 Pantoprazole Sodium (Pantoprazole 40 Mg Tab) 40 mg PO QAM [facility] Stop: 05/27/20 08:59 Last Admin: 04/27/20 08:11 Dose: 40 mg Documented by: Tamsulosin HCl (Tamsulosin Hcl 0.4 Mg Cap) 0.4 mg PO HS [facility] Stop: 05/22/20 20:59 Last Admin: 04/26/20 21:12 Dose: 0.4 mg Documented by:
--- NOTE | 2020-04-28 08:26 | Discharge Summary ---
Date of Service April 28, 2020 Admission HPI Per Admitting Provider 84-year-old male with history of CAD, mitral regurgitation, sick sinus syndrome status post pacemaker, CKD stage III, GERD and IBS, BPH, other problems noted below presenting with dysphagia x3 weeks. Patient underwent a bilateral total knee arthroplasty at [facility] on March 27, 2020. Was then transferred to [facility] for rehab. While at rehab, the patient was noted to have progressive dysphagia mostly with solids, nausea and poor appetite. During rehab stay, patient developed urinary retention and a Storey catheter was placed. Patient was dischargeD from [facility] to home last week of March. April 18, 2020, patient presented to the ER for syncopal episode which was felt to be secondary to UTI and was discharged on Cipro. CT head negative for CVA. At home, the patient continued to have progressive dysphagia, very poor appetite prompting consult to the ER. At the ER, patient received with stable vital signs. CT neck and CT chest and abdomen do not reveal any obstruction. Right ureteral stone measuring 10 mm in size with hydronephrosis was noted. On exam, the patient was seen resting in bed, comfortable, not in distress, oriented x3, answers all questions appropriately. Main symptom is very poor appetite and dysphagia with solids. Denies active shortness of breath, chest pain, palpitations, cough, abdominal pain, fevers or chills, hematuria. No other symptoms. History for supplemented by patient's daughter at the bedside. Primary Care Provider: Darell Mckeon, DO Admission Exam Per Admitting Provider Physical Exam: General- oriented x 3, not in distress, speaks in sentences with no effort or accessory muscle use Head- atraumatic Eyes- PERRL, EOMI, anicteric ENT- oropharynx clear Neck- supple, no JVD, no adenopathy, no thyromegaly; carotids +2/2, no bruits appreciated Lungs- clear to auscultation bilaterally, no rales/wheezes Heart- normal rate, regular rhythm; no murmur, no gallop, no rub appreciated Abdomen- normal bowel sounds, nondistended, soft, nontender, no masses or hepatosplenomegaly Positive Storey catheter in place with a yellow urine Extremities-bilateral knees: Surgical scar scabbing, healing well, no erythema/warmth/tenderness/edema; no pretibial edema, no calf tenderness; peripheral pulses intact Neuro- alert, oriented x 3; CN 2-12 grossly intact; motor 5/5 bilaterally;sensation 100% on all extremities; no other gross focal neurologic deficits Skin- warm & dry Principal Diagnosis Dysphagia secondary to esophageal dysmotility, status post right ureteral stent placement, TURP and removal of bladder stone, syncope-no apparent cause found, hypothyroidism Discharge Exam Constitutional well developed and well nourished; no acute distress and not ill appearing Eyes PERRL, conjunctivae normal, anicteric sclerae ENMT external ear and nose normal, oropharynx normal Neck trachea midline, no thyromegaly Respiratory normal respiratory effort; no respiratory distress Auscultation: lungs clear to auscultation bilaterally and + diminished lung sounds; no crackles and no wheezes Cardiovascular Rate/Rhythm: regular rate and regular rhythm Heart Sounds: no murmur Extremities: + edema (Trace edema bilaterally) Gastrointestinal (Abdomen) Inspection/Auscultation: abdomen normal to inspection and normal bowel sounds; abdomen not distended Percussion/Palpation: abdomen soft Neurologic moves all extremities; no focal motor deficits Lymphatic no cervical or axillary lymphadenopathy Discharge Data Allergies Allergy/AdvReac Type Severity Reaction Status Date / Time aspirin Allergy Severe HIVES/ANGIO Verified 04/22/20 18:29 EDEMA cilostazol Allergy Unknown Unknown Verified 04/22/20 18:29 lactose AdvReac Mild GI SYMPTOMS Verified 04/22/20 18:29 Consultations 04/22/20 17:41 ED Decision to Admit Stat 04/22/20 20:30 Consult Gastroenterology Routine Consult Neurology Routine Consult Urology Stat 04/27/20 10:41 Consult Case Management - Discharge Planning Routine Procedures Performed Operation Date: 04/23/20 17:15 Actual Procedures p EGD Dilatation - Leobardojenna Shadi Operation Date: 04/24/20 09:25 Actual Procedures s Right Ureteral Stent Insertion, - DO nitza Flor Transurethral Resection of Prostate - David Rodriguez DO p Laser Cystolitholapaxy and Extraction of Bladder Stones - DO nitza Flor Cystoscopy,Bilateral Retrograde Pyleogram - David Rodriguez DO Ordered Studies 04/22/20 14:39 CT abd pelvis wo con Stat CT chest wo con Stat CT soft tissue neck wo con Stat 04/23/20 17:22 US carotid doppler BI Routine 04/24/20 09:30 FL retrograde includes kub Routine 04/25/20 10:45 FL barium swallow Routine 04/25/20 11:00 FL video swallow Routine Hospital Course (1) Dysphagia: 84-year-old male with recent bilateral total knee arthroplasty, March 27, 2020, History of CAD, mitral regurgitation, sick sinus syndrome status post pacemaker, CKD stage III, GERD and IBS, BPH, other problems noted below presenting with dysphagia x3 weeks. And syncopal episode(LOC for 3 minutes-cannot recollect) on 18 April Dysphagia and odynophagia Rule out esophageal obstruction, dysmotility Started when patient was at rehab post knee surgery, around middle of March Progressive, mostly with solids CT head performed April 18, 2020: No acute process Brain MRI could not be performed as patient is on pacemaker Appreciate GI input and recommendation Status post EGD without significant findings and the esophagus was dilated Appreciate speech therapy evaluation Barium swallow has been reported with some abnormal findings and awaiting speech therapy recommendation for diet Has been tolerating recommended diet No symptoms with swallowing anymore-will be discharged home this afternoon Status post right ureteral stent placement, transurethral resection of prostate, cystoscopy litholapaxy and extraction of bladder stone and cystoscopy with bilateral retrograde pyelogram on 04/24/2020 Received a treatment for presumed UTI started April 18, 2020, urine culture: Positive cocci, 5000 colonies no sensitivities to follow; ciprofloxacin course given at the ER April 18, 2020 Also on Storey catheter for about 2 weeks now for urinary retention noted at rehab Does not have any symptoms of dysuria and/or back pain Fever and/or chills Urologist consulted-appreciate input and recommendation Remains stable following the procedure Can be discharged as per urologist Continues to have mild to moderate hematuria-hemoglobin remains stable We will continue Plavix Will have an appointment with a urologist as an outpatient as planned Syncope Scented to ER with syncopal episode last April 18, 2020 felt to be secondary to UTI CT head at that time: No acute process Per patient's daughter, the patient was at the kitchen table, felt lightheaded, became unresponsive, staring for about 4 minutes, clammy, pale before coming around Will do further investigation EEG to rule out seizure Neurology consultation Pacemaker interrogation, echocardiogram Orthostatic vital signs Denies any neuro symptoms as of this morning Echo remains unremarkable Appreciate neurology input and recommendation No more symptoms We will get PT and OT evaluation We will continue PT and OT while in the hospital-recommended home Denies any neurological symptoms History of CAD Continue Plavix, hold atorvastatin Acute issue Mitral regurgitation Euvolemic, monitor while on IV fluids Sinus syndrome, status post pacemaker placement Pacemaker interrogation in light of syncope CKD stage III Stable GERD Convert famotidine Protonix to IV BPH Continue finasteride and Flomax Hypothyroidism Continue levothyroxine History of for skin cancer, monoclonal paraproteinemia Out patient follow-up DVT prophylaxis Heparin subcutaneous every 12 hours in light of recent surgery March 27, 2020 CODE STATUS Full code per patient's daughter at the bedside Awaiting PT and OT evaluation-recommended home Will be discharged home this afternoon Total Time Total Time Spent Total Time Spent (In Minutes): 40 minutes Total Time Includes: Examination of the Patient, Discharge Planning, Medication Reconciliation and Communication With Other Providers Discharge Plan Discharge Items Patient Disposition: Home - Home Health Services Reason For Visit: DYSPHAGIA,UNTERAL STONE Discharge Diagnosis: Dysphagia secondary to esophageal dysmotility, status post right ureteral stent placement, TURP and removal of bladder stone, syncope-no apparent cause found, hypothyroidism Condition on Discharge: Fair Activity: Resume your previous activity Non-emergency contact: Primary Care Provider Call non-emergency contact if: you have any medication questions and your symptoms worsen Follow-up/Referrals: Tae Newsome MD [Physician] - (Urologist office will call you with an appointment) Darell Mckeon DO [Primary Care Provider] - (We will call you with an appointment with your PCP within 1 week. ) Diet: Regular Diet Texture: Easy to Chew Diet Comment: Take extra precaution during swallowing to avoid aspiration Addtl Attending Provider Instructions: Please take precautions to avoid falls Keep the Storey catheter in place until you have been seen by the urologist as an outpatient Take extra precaution so that the catheter is not accidentally pulled out Pending Studies at Discharge: No Stand-Alone Forms: My Daily Dealy, Smoking Cessation Medications and DC Order Prescriptions: Continued atorvastatin 80 mg tablet 80 mg PO HS RF: 0 clopidogrel [Plavix] 75 mg tablet 75 mg PO DAILY RF: 0 fluticasone propionate 50 mcg/actuation spray,suspension 2 sprays INTNAS QAM RF: 0 gemfibrozil [Lopid] 600 mg tablet 600 mg PO BID RF: 0 levothyroxine 125 mcg capsule 125 mcg PO QAM RF: 0 nitroglycerin [Nitrostat] 0.4 mg tablet, sublingual 0.4 mg SL DIRECTED PRN (Reason: Chest Pain) RF: 0 ascorbic acid (vitamin C) 500 mg Tablet 1,000 mg PO QAM RF: 0 tamsulosin 0.4 mg Capsule 0.4 mg PO HS RF: 0 pantoprazole [Protonix] 40 mg Tablet,Delayed Release (Dr/Ec) 40 mg PO QAM RF: 0 finasteride [Proscar] 5 mg tablet 5 mg PO QAM RF: 0 tramadol [Ultram] 50 mg Tablet 50 mg PO Q6H PRN (Reason: Pain) RF: 0 alprazolam [Xanax] 0.25 mg Tablet 0.25 mg PO Q12 PRN (Reason: Anxiety/Insomnia) RF: 0 multivitamin with minerals [Multiple Vitamin-Minerals] Tablet 1 tab PO QAM RF: 0 alum-mag hydroxide-simeth [Mylanta Maximum Strength] 400-400-40 mg/5 mL Suspension 10 ml PO Q4H PRN (Reason: Indigestion related to nausea) RF: 0 amoxicillin 500 mg capsule 2,000 mg PO DIRECTED PRN (Reason: Prophylaxis) RF: 0 acetaminophen 325 mg Tablet 650 mg PO Q4H MDD 3 GMS APAP/24 HOURS PRN (Reason: Pain) RF: 0 famotidine 40 mg tablet 20 mg PO Q12H RF: 0 calcium carbonate 500 mg calcium (1,250 mg) Tablet,Chewable 1,000 mg PO Q6H PRN (Reason: Indigestion) RF: 0 sennosides [senna] 8.6 mg Tablet 17.2 mg PO HS RF: 0 ondansetron HCl 4 mg Tablet 4 mg PO Q4H PRN (Reason: Nausea And Vomiting) RF: 0 ferrous sulfate 325 mg (65 mg iron) Tablet 325 mg PO BID RF: 0 Discharge Orders: Discharge Order (Routine); Ordered 04/27/20 Ordered By: Milady Nunez/Other Patient Handouts: Emptying and Cleaning Your Urinary Catheter Bag, Discharge Instructions Caring for Your Leg Bag Admission Data Admit Date/Time: 04/22/20 19:41 Attending Provider: Milady Velasco Admit Provider: Stanford Akhtar Primary Care Provider: Darell Mckeon Other Providers: Stanford Akhtar ; Surinder Martinez ; Vladimir Hogan ; Elizabeth Campos Other Interventions: Discharge Summary Assessment (RN) Last Done: 04/27/20 12:38
[2020-05-01 13:16] LABS: Component 2 DNR; Source BLADDER STONE
== END 2020-04-27 14:50 | disposition home health service (06) | DRG 660 ==
LOC: ED 12:56 → 2N 19:41 → SUATTDRO 19:41 → 2N 19:58

== ENCOUNTER 2020-06-03 21:37 | Inpatient (IN) ==
[2020-06-03] MEDS ORDERED: SODIUM CHLORIDE 0.9% 1000ML 1,000 ML IV SCH (22:45)
--- NOTE | 2020-06-03 23:00 | Emergency Department Note ---
History of Present Illness General Chief complaint: Fever Stated complaint: FEVER Time Seen by Provider: 06/03/20 22:19 Source: patient and family Mode of arrival: ambulatory Limitations: no limitations History of Present Illness Provider complaint: fever, chills Onset (ago): hour(s) Maximum Pain Intensity: 5 Associated symptoms: + fever/chills, + loss of appetite, + malaise and + nausea/vomiting; no chest pain, no headaches, no shortness of breath and no syncope Treatments prior to arrival: none This is an 84-year-old male who presents the emergency department with his daughter complaining of fevers and chills at home today. Patient was here yesterday and underwent retrieval of a kidney stone and placement of a new ur eteral stent. She states this was performed by Dr. Rodriguez. Patient has been taking Keflex for a urinary tract infection. Daughter notes that upon discharge yesterday he was given a prescription for Cipro to start today, however he did not start taking it. She states she received a call from her mother, the patient's stating that the patient was complaining of being severely cold and appeared to be shaking and when she checked his temperature it was greater than 101 F. Patient's daughter states when she got there with her thermometer to double check, his temperature was 103.6 F. Patient states he did not feel well today, complained of poor appetite, nausea although no vomiting, body aches, fatigue, and generalized weakness. Patient states he did have a small but normal-appearing bowel movement this morning, no black or bloody stools. He states his urine is slightly dark in color and he is not urinating large amounts. Patient states with the body aches today he had increased pain in his knees bilaterally, although states this is chronic as he frequently has knee pain. No other recent known exposure to coronavirus. Pt seen during a time of high acuity and national emergency pandemic while wearing PPE. Home Medications Home Medications Medication Instructions Recorded Confirmed Type atorvastatin 80 mg tablet 80 mg PO HS 02/04/20 06/02/20 History clopidogrel 75 mg tablet 75 mg PO QAM 02/04/20 06/02/20 History fluticasone propionate 50 2 sprays INTNAS QA 02/04/20 06/02/20 History mcg/actuation nasal spray,suspension gemfibrozil 600 mg tablet 600 mg PO BID 02/04/20 06/02/20 History levothyroxine 125 mcg capsule 125 mcg PO QAM 02/04/20 06/02/20 History nitroglycerin 0.4 mg sublingual 0.4 mg SL DIRECTED PRN 02/04/20 06/02/20 History tablet ascorbic acid (vitamin C) 1,000 mg PO QAM 04/14/20 06/02/20 History acetaminophen 650 mg PO Q4H PRN MDD 3 GMS 04/15/20 06/02/20 History APAP/24 HOURS alprazolam [Xanax] 0.25 mg PO Q12 PRN 04/15/20 06/02/20 History alum-mag hydroxide-simeth [Mylanta 10 ml PO Q4H PRN 04/15/20 06/02/20 History Maximum Strength] amoxicillin 2,000 mg PO DIRECTED PRN 04/15/20 06/02/20 History calcium carbonate [Calcium 500] 1,000 mg PO Q6H PRN 04/15/20 06/02/20 History famotidine [Pepcid] 40 mg PO QAM 04/15/20 06/02/20 History ferrous sulfate 325 mg PO BID 04/15/20 06/02/20 History finasteride [Proscar] 5 mg PO QAM 04/15/20 06/02/20 History multivitamin with minerals 1 tab PO QAM 04/15/20 06/02/20 History [Multiple Vitamin-Minerals] ondansetron HCl 4 mg PO Q4H PRN 04/15/20 05/13/20 History pantoprazole [Protonix] 40 mg PO QAM 04/15/20 06/02/20 History sennosides [senna] 17.2 mg PO HS PRN 04/15/20 06/02/20 History tamsulosin 0.4 mg capsule 0.4 mg PO HS #30 cap 05/05/20 06/02/20 Rx cephalexin 500 mg capsule 500 mg PO BID 5 Days #10 cap 05/28/20 06/02/20 Rx ciprofloxacin HCl [Cipro] 500 mg PO Q12H #6 tab 06/02/20 Rx oxycodone-acetaminophen [Percocet] 1 tab PO Q8H PRN #7 tab 06/02/20 Rx phenazopyridine [Pyridium] 200 mg PO Q8H PRN #10 tab 06/02/20 Rx Allergies Allergy/AdvReac Type Severity Reaction Status Date / Time aspirin Allergy Severe hives, Verified 06/02/20 07:42 angioedema cilostazol Allergy Unknown Unknown Verified 06/02/20 07:42 lactose AdvReac Mild GI symptoms Verified 06/02/20 07:42 Past Med/Surg History Medical History Anemia hgb in the 8-9 range per review of records, on iron supplement, hx of blood transfusion post-op knee replacements (2019) Anxiety CAD (coronary artery disease) CABG x1 (1995) + stent (several years ago) Depression Difficulty voiding difficulty emptying bladder, straight cath PRN GERD (gastroesophageal reflux disease) History of basal cell carcinoma History of elevated prostate specific antigen (PSA) History of recent hospitalization [facility] 04/22/2020 HLD (hyperlipidemia) Hypothyroidism Mitral valve disorder 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 Myocardial Infarction 1995 Nephrolithiasis 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, [employer] device, last check 04/2020 TIA (transient ischemic attack) per remote records/patient unaware Surgical History H/O angioplasty 1995 H/O colonoscopy H/O hernia repair inguinal History of cardiac cath History of cystoscopy cystoscopy, bladder stones extraction: 04/24/20: MAC sedation at [facility] History of esophagogastroduodenoscopy (EGD) Hx of CABG x1 vessel -- 1995 (failed, lasted 2 weeks) --> angioplasty Hx of tonsillectomy Hx of total knee arthroplasty R/L S/P Mohs surgery for basal cell carcinoma Family History Other No family history of adverse response to anesthesia Social History Smoking Status: Never smoker Second Hand Exposure: No; Do You Dip or Chew Tobacco: No; Hx Alcohol Use: No Hx Substance Use: No Preferred Language: Khmer Communication Ability: Effective Clinical Staff Educator Required: No Beliefs That Will Affect Care: None marital status: Current Living Situation: Spouse Other Information That Helps Us Care for You: No Feels Safe at Home: Yes Safety Concerns: Feels Safe At This Time Assistive Devices: Glasses, Hearing Aid - Bilateral and Walker Review of Systems See HPI for pertinent positives & negatives. and A total of 10 systems reviewed and were otherwise negative Physical Exam Vital Signs Vital Signs - 24 hr 06/03/20 21:38 06/03/20 22:39 06/03/20 22:50 Temperature 37.7 C H Temperature Source Oral Pulse Rate 69 63 70 Pulse Rate from SpO2 Sensor 68 68 Respiratory Rate 20 19 24 Respiratory Effort / Characteristics Non-Labored Spontaneous Respiratory Depth Normal Blood Pressure 144/67 H 138/59 L Blood Pressure Mean 92 76 Pulse Oximetry 99 91 92 Oxygen Delivery Method Room Air Sepsis Recent Fever Within 48 Hours Yes Sepsis New/Unexplained Change in Mental Status N/A Sepsis Action Taken by Nursing No Action Required 06/03/20 23:00 06/03/20 23:03 06/03/20 23:30 Temperature Temperature Source Pulse Rate 60 88 Pulse Rate from SpO2 Sensor Respiratory Rate 24 20 Respiratory Effort / Characteristics Non-Labored Respiratory Depth Blood Pressure 129/55 L 140/65 Blood Pressure Mean 80 86 Pulse Oximetry 95 95 Oxygen Delivery Method Room Air Sepsis Recent Fever Within 48 Hours Sepsis New/Unexplained Change in Mental Status Sepsis Action Taken by Nursing 06/04/20 00:00 06/04/20 00:30 06/04/20 00:56 Temperature 38.0 C H Temperature Source Pulse Rate 73 63 Pulse Rate from SpO2 Sensor Respiratory Rate 20 20 Respiratory Effort / Characteristics Respiratory Depth Blood Pressure 124/69 131/55 L Blood Pressure Mean 77 87 Pulse Oximetry 99 93 Oxygen Delivery Method Sepsis Recent Fever Within 48 Hours Sepsis New/Unexplained Change in Mental Status Sepsis Action Taken by Nursing GENERAL: alert, well appearing, well nourished, no distress, non-toxic, [facility] EXAM: normal conjunctiva, PERRL and EOM's grossly intact OROPHARYNX: no exudate, no erythema, lips, buccal mucosa, and tongue normal and mucous membranes are moist NECK: supple, no nuchal rigidity, no adenopathy, non-tender LUNGS: Clear to auscultation. Normal chest wall mechanics, no w/r/r HEART: no murmurs, S1 normal and S2 normal ABDOMEN: abdomen soft, non-tender, normo-active bowel sounds, no masses, no rebound or guarding. BACK: Back is symmetrical on inspection and there is no deformity, no midline tenderness, no CVA tenderness. SKIN: no rashes and no bruising UPPER EXTREMITIES: upper extremities are grossly normal. FROM, nml pulses b/l. LOWER EXTREMITIES: No pitting edema. FROM, nml pulses b/l. NEURO EXAM: Normal sensorium, cranial nerves II-XII grossly intact, normal speech, no gross weakness of arms, no gross weakness of legs. Gross sensation intact. Course Course 0030: Case discussed with Dr. Meyer for additional management. Administered Medications Amlodipine Besylate (Amlodipine Besylate 5 Mg Tab) [facility] [place] Stop: 07/04/20 06:49 Last Admin: 06/04/20 08:25 Dose: 2.5 mg Documented by: [id number] Atorvastatin Calcium (Atorvastatin 40 Mg Tab) 80 mg PO HS [facility] Stop: 07/04/20 20:59 Last Admin: 06/04/20 20:17 Dose: 80 mg Documented by: [id number] Clopidogrel Bisulfate (Clopidogrel Bisulfate 75 Mg Tab) 75 mg PO [facility] Stop: 07/04/20 08:59 Last Admin: 06/04/20 08:24 Dose: 75 mg Documented by: [id number] Enoxaparin Sodium (Enoxaparin Inj 30 Mg/0.3 Ml Syr) 30 mg SQ [facility] Stop: 07/04/20 08:59 Last Admin: 06/04/20 08:26 Dose: 30 mg Documented by: [id number] Famotidine (Famotidine 40 Mg Tablet) 40 mg PO [facility] Stop: 07/04/20 08:59 Last Admin: 06/04/20 08:24 Dose: 40 mg Documented by: [id number] Ferrous Sulfate (Ferrous Sulfate 325 Mg Tab) 325 mg PO BID [facility] Stop: 07/04/20 08:59 Last Admin: 06/04/20 20:18 Dose: 325 mg Documented by: [id number] Admin: 06/04/20 08:25 Dose: 325 mg Documented by: [id number] Finasteride (Finasteride 5 Mg Tab) [facility] [place] Stop: 07/04/20 08:59 Last Admin: 06/04/20 08:24 Dose: 5 mg Documented by: [id number] Fluticasone Propionate (Fluticasone Propionate Na Spr 16 Gm Btl) 2 sprays NA [facility] Stop: 07/04/20 08:59 Last Admin: 06/04/20 08:25 Dose: 2 sprays Documented by: [id number] Gemfibrozil (Gemfibrozil 600 Mg Tab) 600 mg PO BID [facility] Stop: 07/04/20 08:59 Last Admin: 06/04/20 20:18 Dose: 600 mg Documented by: [id number] Admin: 06/04/20 08:24 Dose: 600 mg Documented by: [id number] Cefepime HCl 2,000 mg/ Syringe 20 mls @ 5 mls/min IV Q12H [facility] Stop: 06/14/20 05:59 Last Admin: 06/04/20 17:35 Dose: 5 mls/min Documented by: [id number] Admin: 06/04/20 06:19 Dose: 5 mls/min Documented by: [id number] Levothyroxine Sodium (Levothyroxine Sodium 125 Mcg Tablet) 125 mcg PO DAILYBB [facility] Stop: 07/04/20 06:29 Last Admin: 06/04/20 06:19 Dose: 125 mcg Documented by: [id number] Pantoprazole Sodium (Pantoprazole 40 Mg Tab) 40 mg PO QAM [facility] Stop: 07/04/20 08:59 Last Admin: 06/04/20 08:24 Dose: 40 mg Documented by: [id number] Tamsulosin HCl (Tamsulosin Hcl 0.4 Mg Cap) 0.4 mg PO HS [facility] Stop: 07/04/20 20:59 Last Admin: 06/04/20 20:18 Dose: 0.4 mg Documented by: [id number] Discontinued Medications Acetaminophen (Acetaminophen 325 Mg Tab) 650 mg PO NOW STA Stop: 06/04/20 00:48 Last Admin: 06/04/20 00:57 Dose: 650 mg Documented by: [id number] Hydrox/Mg Hydrox/Simethicone (Aluminum/Magnesium/Simeth (Maalox Max) 30 Ml Udc) 30 ml PO NOW STA Stop: 06/04/20 23:57 Last Admin: 06/05/20 00:08 Dose: 30 ml Documented by: [id number] Sodium Chloride (Nss 1000ml) 1,000 mls @ 125 mls/hr IV .Q8H [facility] Stop: 07/03/20 22:44 Last Infusion: 06/04/20 17:44 Dose: 0 mls/hr Documented by: [id number] Admin: 06/03/20 23:27 Dose: 125 mls/hr Documented by: [id number] Piperacillin Sod/Tazobactam Sod (Zosyn) 4.5 gm in 120 mls @ 240 mls/hr IV NOW ONE Stop: 06/03/20 23:38 Last Infusion: 06/03/20 23:54 Dose: 0 mls/hr Documented by: [id number] Admin: 06/03/20 23:24 Dose: 240 mls/hr Documented by: [id number] Vancomycin HCl 1,000 mg/ (Sodium Chloride) 520 mls @ 200 mls/hr IV NOW ONE Stop: 06/04/20 01:44 Last Infusion: 06/04/20 02:35 Dose: 0 mls/hr Documented by: [id number] Admin: 06/03/20 23:59 Dose: 200 mls/hr Documented by: [id number] Magnesium Sulfate/Dextrose (Magnesium Sulfate / D5w) 1 gm in 100 mls @ 100 mls/hr IV Q1H [facility] Stop: 06/04/20 02:21 Last Infusion: 06/04/20 03:08 Dose: 0 mls/hr Documented by: [id number] Admin: 06/04/20 02:08 Dose: 100 mls/hr Documented by: [id number] Infusion: 06/04/20 02:08 Dose: 0 mls/hr Documented by: [id number] Admin: 06/04/20 01:01 Dose: 100 mls/hr Documented by: [id number] Potassium Chloride 40 meq/ (Sodium Chloride) 1,020 mls @ 75 mls/hr IV .[id number] ONE Stop: 06/04/20 14:24 Last Infusion: 06/04/20 17:41 Dose: 0 mls/hr Documented by: [id number] Admin: 06/04/20 03:30 Dose: 75 mls/hr Documented by: [id number] Magnesium Sulfate/Dextrose (Magnesium Sulfate / D5w) 1 gm in 100 mls @ 50 mls/hr IV Q2H [facility] Stop: 06/04/20 08:01 Last Infusion: 06/04/20 15:19 Dose: 0 mls/hr Documented by: [id number] Admin: 06/04/20 06:31 Dose: 50 mls/hr Documented by: [id number] Infusion: 06/04/20 06:31 Dose: 50 mls/hr Documented by: [id number] Admin: 06/04/20 04:57 Dose: 50 mls/hr Documented by: [id number] Potassium Chloride (Potassium Chloride 20 Meq Tabcr) 40 meq PO NOW STA Stop: 06/04/20 00:27 Last Admin: 06/04/20 00:57 Dose: 40 meq Documented by: [id number] Potassium Chloride (Potassium Chloride 20 Meq Tabcr) 20 meq PO NOW STA Stop: 06/04/20 04:03 Last Admin: 06/04/20 04:57 Dose: 20 meq Documented by: [id number] Medical Decision Making Differential Diagnosis Differential diagnosis: Etiologies such as viral syndrome, otitis, pharyngitis, pneumonia, influenza, meningitis, urinary tract infection, sepsis, bacteremia, as well as others were entertained. Medical Records Attestation: I reviewed the patient's medical records. Home Medications Current Medication List: was personally reviewed by me Laboratory Data Attestation: I reviewed the patient's lab results. Result diagrams: 06/04/20 06:24 06/04/20 06:24 Lab Results 06/03/20 06/03/20 06/03/20 Range/Units 23:07 23:07 23:07 WBC 6.25 (4.8-10.8) K/uL RBC 3.23 L (4.7-6.1) M/uL Hgb 9.7 L (14.0-18.0) g/dL Hct 30.7 L (42-52) % MCV 95.0 (80-100) fL MCH 30.0 (25-34) pg MCHC 31.6 L (32-36) g/dL RDW Std Deviation 52.4 H (36.4-46.3) fL RDW Coeff of Courtney 15.0 H (11.5-14.5) % Plt Count 250 (130-400) K/uL MPV 9.6 (7.4-10.4) fL Immature Gran % (Auto) 0.2 % Neut % (Auto) 85.5 % Lymph % (Auto) 6.7 % [place] % (Auto) 7.4 % Eos % (Auto) 0.0 % Baso % (Auto) 0.2 % Neut # (Auto) 5.35 (1.4-6.5) K/uL Lymph # (Auto) 0.42 L (1.2-3.4) K/uL [place] # (Auto) 0.46 (0.11-0.59) K/uL Eos # (Auto) 0.00 (0-0.5) K/uL Baso # (Auto) 0.01 (0-0.2) K/uL Immature Gran # (Auto) 0.01 (0.00-0.02) K/uL PT 14.0 H (9.0-12.0) Seconds INR 1.3 H (0.9-1.1) APTT 28.0 (21.0-31.0) Seconds PTT Ratio 1.0 Sodium (136-145) mmol/L Potassium (3.5-5.1) mmol/L Chloride (98-107) mmol/L Carbon Dioxide (21-32) mmol/L Anion Gap (3-11) BUN (7-18) mg/dl Creatinine (0.6-1.4) mg/dl Est Cr Clr Drug Dosing ml/min Est GFR ( Amer) Est GFR (Non-Af Amer) BUN/Creatinine Ratio (10-20) Glucose (70-99) mg/dl Lactate (0.4-2.0) mmol/L Calcium (8.5-10.1) mg/dl Magnesium (1.8-2.4) mg/dl Total Bilirubin (0.2-1) mg/dl AST (15-37) U/L ALT (12-78) U/L Alkaline Phosphatase (45-117) U/L Troponin I (0-0.045) ng/ml Total Protein (6.4-8.2) gm/dl Albumin (3.4-5.0) gm/dl Globulin (2.5-4.0) gm/dl Albumin/Globulin Ratio (0.9-2) Procalcitonin 0.26 (0-0.5) ng/ml 06/03/20 06/03/20 Range/Units 23:07 23:07 WBC (4.8-10.8) K/uL RBC (4.7-6.1) M/uL Hgb (14.0-18.0) g/dL Hct (42-52) % MCV (80-100) fL MCH (25-34) pg MCHC (32-36) g/dL RDW Std Deviation (36.4-46.3) fL RDW Coeff of Courtney (11.5-14.5) % Plt Count (130-400) K/uL MPV (7.4-10.4) fL Immature Gran % (Auto) % Neut % (Auto) % Lymph % (Auto) % [place] % (Auto) % Eos % (Auto) % Baso % (Auto) % Neut # (Auto) (1.4-6.5) K/uL Lymph # (Auto) (1.2-3.4) K/uL [place] # (Auto) (0.11-0.59) K/uL Eos # (Auto) (0-0.5) K/uL Baso # (Auto) (0-0.2) K/uL Immature Gran # (Auto) (0.00-0.02) K/uL PT (9.0-12.0) Seconds INR (0.9-1.1) APTT (21.0-31.0) Seconds PTT Ratio Sodium 137 (136-145) mmol/L Potassium 3.0 L (3.5-5.1) mmol/L Chloride 103 (98-107) mmol/L Carbon Dioxide 27 (21-32) mmol/L Anion Gap 7.0 (3-11) BUN 19 H (7-18) mg/dl Creatinine 0.94 (0.6-1.4) mg/dl Est Cr Clr Drug Dosing 65.6 ml/min Est GFR ( Amer) 84.7 Est GFR (Non-Af Amer) 73.1 BUN/Creatinine Ratio 20.5 H (10-20) Glucose 100 H (70-99) mg/dl Lactate 0.9 (0.4-2.0) mmol/L Calcium 8.3 L (8.5-10.1) mg/dl Magnesium 1.4 L (1.8-2.4) mg/dl Total Bilirubin 0.3 (0.2-1) mg/dl AST 18 (15-37) U/L ALT 18 (12-78) U/L Alkaline Phosphatase 97 (45-117) U/L Troponin I 0.484 H* (0-0.045) ng/ml Total Protein 6.3 L (6.4-8.2) gm/dl Albumin 2.9 L (3.4-5.0) gm/dl Globulin 3.4 (2.5-4.0) gm/dl Albumin/Globulin Ratio 0.9 (0.9-2) Procalcitonin (0-0.5) ng/ml Imaging Data My Impression: X-ray: I interpreted the following studies. Chest: A single view study of the chest was reviewed and was negative for cardiomegaly, focal infiltrate, effusion, pulmonary edema, or wide mediastinum. Pacemaker noted. KUB: Stent appears in usual position, no obvious bowel obstruction. ECG Data Attestation: I personally reviewed and interpreted this ECG as follows: Indication: + weakness Rate (beats per minute): 61 Rhythm: + other (paced) ECG Intervals/blocks: + IVCD and + Prolonged QT ECG [place]: + Normal ECG ST segments: + Nonspecific ST abnormalities Comparison ECG Date: from (04/2020) Change: no significant change Blood Pressure Blood Pressure Findings: Elevated blood pressure Blood Pressure Disposition: further management by hospitalist GILBERT Narrative Elderly patient presenting due to fevers and rigors at home and concern for evolving sepsis given recent urologic procedure. Patient hemodynamically stable. Labs drawn and sent, culture sent, patient started on gentle IV fluid rehydration. Patient with no specific complaints during the time of my exam, did admit to increased weakness, fatigue, poor appetite. Patient's daughter assists with history. Patient remained hemodynamically stable in the emergency room. Patient found to have hypokalemia, hypomagnesemia, and elevated troponin. Patient's EKG was unremarkable and he had no complaints of chest pain or shortness of breath. I do not suspect occult ACS or acute CHF. Patient was given additional IV antibiotics. Patient's procalcitonin and lactic acid were reassuring. No evidence of acute kidney injury. X-ray shows stent to be in the expected position. No complications were seemingly documented on review of the operative report in the EMR. Patient's electrolytes were repleted while in the emergency room. Case was discussed with hospitalist for additional evaluation and management. Given no acute kidney injury, and stent appearing to be in normal position, I did not feel patient required acute urologic intervention. An order was placed for continuous cardiac monitoring. The monitor shows a rate of _62 with _normal sinus rhythm. Impression & Plan Fever, Hypomagnesemia, Hypokalemia, Elevated troponin, Acute dehydration, S/P ureteral stent placement Discharge Plan Visit Data Chief Complaint: Fever Stated Complaint: FEVER ED Provider: Nicol Weller Discharge Problem: Fever, Hypomagnesemia, Hypokalemia, Elevated troponin, Acute dehydration, S/P ureteral stent placement Patient Disposition: Admitted As Inpatient Discharge Instructions Interventions: ED Discharge Assessment Last Done: 06/04/20 03:02 Discharge Problem: Fever Qualifiers: Fever type: due to other condition Qualified Code(s): R50.81 - Fever presenting with conditions classified elsewhere
[2020-06-03] MEDS ORDERED: PIPERACILLIN/TAZOBACTAM 4.5 GM/120 ML BAG IV ONE (23:09)
[2020-06-03] MEDS ORDERED: VANCOMYCIN CONSULT ACTIVE PRN (23:09)
[2020-06-03] MEDS ORDERED: PIPERACILL/TAZOBAC CONSULT ACTIVE PRN (23:09)
[2020-06-03] MEDS ORDERED: VANCOMYCIN HCL 1,000 MG in SODIUM CHLORIDE 0.9% 500 ML IV ONE (23:09)
[2020-06-03 23:27] LABS: Basophils # (auto) 0.01 K/uL (0-0.2); Basophils % (auto) 0.2 %; Hematocrit (blood only) 30.7 % (42-52); Hemoglobin 9.7 g/dL (14.0-18.0); Immature Granulocytes # (auto) 0.01 K/uL (0.00-0.02); Immature Granulocytes % (auto) 0.2 %; Lymphocytes # (auto) 0.42 K/uL (1.2-3.4); Lymphocytes % (auto) 6.7 %; Mean Corpuscular Hgb Conc 31.6 g/dL (32-36); Mean Platelet Volume 9.6 fL (7.4-10.4); Monocytes # (auto) 0.46 K/uL (0.11-0.59); Monocytes % (auto) 7.4 %; Neutrophils # (auto) 5.35 K/uL (1.4-6.5); Neutrophils % (auto) 85.5 %; Platelet Count 250 K/uL (130-400); RDW Standard Deviation 52.4 fL (36.4-46.3); Red Blood Count 3.23 M/uL (4.7-6.1); White Blood Count 6.25 K/uL (4.8-10.8)
[2020-06-03 23:40] LABS: INR 1.3 (0.9-1.1)
[2020-06-03 23:53] LABS: Albumin Level 2.9 gm/dl (3.4-5.0); BUN Creatinine Ratio 20.5 (10-20); Calcium 8.3 mg/dl (8.5-10.1); Creatinine Clr Calc Pharmacy 65.6 ml/min; Est GFR (African American) 84.7; Est GFR (Non-African American) 73.1; Magnesium 1.4 mg/dl (1.8-2.4)
[2020-06-04 00:03] LABS: Albumin Globulin Ratio 0.9 (0.9-2); Bilirubin,Total 0.3 mg/dl (0.2-1); Globulin 3.4 gm/dl (2.5-4.0); Total Protein 6.3 gm/dl (6.4-8.2); Troponin I 0.484 ng/ml (0-0.045)
[2020-06-04] MEDS ORDERED: POTASSIUM CHLORIDE CRTAB 20 MEQ TABCR PO STA ×2 (00:26→04:02)
[2020-06-04] MEDS ORDERED: ACETAMINOPHEN 325 MG TAB PO STA (00:47)
[2020-06-04] MEDS ORDERED: POTASSIUM CHLORIDE 40 MEQ in SODIUM CHLORIDE 0.9% 1000ML 1,000 ML IV ONE (00:49)
[2020-06-04] MEDS: MAGNESIUM SULFATE / D5W 1 GM/100 ML BAG IV SCH ×4 (01:01→06:31)
--- NOTE | 2020-06-04 01:10 | History & Physical Report ---
Date of Service June 04, 2020 Assessment & Plan (1) Sepsis: Secondary to complicated UTI Recent urologic procedure for urolithiasis Hypertensive urgency secondary to illness Likely chronic hypertension given cardiomegaly Currently not on maintenance meds Troponin elevation likely secondary to illness and elevated blood pressure 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 intake Medical telemetry given troponin invasion Cultures, Cefepime for now Follow troponin Initiate Norvasc if BP uncontrolled Replace electrolytes PT OT eval DVT prophylaxis Lovenox subcu Full code Patient's daughter requesting updates from providers. Ms. Shelbie Bailey, contact #[phone]. Text document was generated using [employer] voice recognition software. It may contain grammatical or spelling errors. Kindly contact undersigned for clarification of any documentation item in question. History of Present Illness Chief Complaint: Fever, chills Primary Care Provider: Darell Mckeon DO History obtained from patient, family, and records. History somewhat limited from patient secondary to hearing impairment. Medical history significant for CAD status post CABG, SSS status post PPM, mitral regurgitation as per records, hypertension, hyperlipidemia, urolithiasis, chronic anemia (baseline hemoglobin of 9). 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 During confinement patient underwent right ureter placement, TURP, cystoscopy, and bladder stone extraction for urolithiasis. 2 days ago, patient underwent cystoscopy, lithotripsy, basket extraction of stone and ureteral stent exchange outpatient by [facility]. Patient did not comply with outpatient Cipro prescription after he read about potential side effects of medication. Yesterday, patient noted fever chills without chest pain, shortness of breath, cough, abdominal pain, dysuria, diarrhea symptoms. Urine noted to be darker than usual. At the ER, patient received vancomycin and Zosyn for sepsis. Medical History as above Surgical History : Knee surgery, CABG, PPM, tonsillectomy/adenectomy, hernia repair, urologic procedures Family History : Diabetes, Personal/Social history : Non-smoker, no EtOH intake, retired goode Allergies Allergy/AdvReac Type Severity Reaction Status Date / Time aspirin Allergy Severe hives, Verified 06/02/20 07:42 angioedema cilostazol Allergy Unknown Unknown Verified 06/02/20 07:42 lactose AdvReac Mild GI symptoms Verified 06/02/20 07:42 Home Medications Home Medications Medication Instructions Recorded Confirmed Type atorvastatin 80 mg tablet 80 mg PO HS 02/04/20 06/02/20 History clopidogrel 75 mg tablet 75 mg PO QAM 02/04/20 06/02/20 History fluticasone propionate 50 2 sprays INTNAS QAM 02/04/20 06/02/20 History mcg/actuation nasal spray,suspension gemfibrozil 600 mg tablet 600 mg PO BID 02/04/20 06/02/20 History levothyroxine 125 mcg capsule 125 mcg PO QAM 02/04/20 06/02/20 History nitroglycerin 0.4 mg sublingual 0.4 mg SL DIRECTED PRN 02/04/20 06/02/20 History tablet ascorbic acid (vitamin C) 1,000 mg PO QAM 04/14/20 06/02/20 History acetaminophen 650 mg PO Q4H PRN MDD 3 GMS 04/15/20 06/02/20 History APAP/24 HOURS alprazolam [Xanax] 0.25 mg PO Q12 PRN 04/15/20 06/02/20 History alum-mag hydroxide-simeth [Mylanta 10 ml PO Q4H PRN 04/15/20 06/02/20 History Maximum Strength] amoxicillin 2,000 mg PO DIRECTED PRN 04/15/20 06/02/20 History calcium carbonate [Calcium 500] 1,000 mg PO Q6H PRN 04/15/20 06/02/20 History famotidine [Pepcid] 40 mg PO QAM 04/15/20 06/02/20 History ferrous sulfate 325 mg PO BID 04/15/20 06/02/20 History finasteride [Proscar] 5 mg PO QAM 04/15/20 06/02/20 History multivitamin with minerals 1 tab PO QAM 04/15/20 06/02/20 History [Multiple Vitamin-Minerals] ondansetron HCl 4 mg PO Q4H PRN 04/15/20 05/13/20 History pantoprazole [Protonix] 40 mg PO QAM 04/15/20 06/02/20 History sennosides [senna] 17.2 mg PO HS PRN 04/15/20 06/02/20 History tamsulosin 0.4 mg capsule 0.4 mg PO HS #30 cap 05/05/20 06/02/20 Rx cephalexin 500 mg capsule 500 mg PO BID 5 Days #10 cap 05/28/20 06/02/20 Rx ciprofloxacin HCl [Cipro] 500 mg PO Q12H #6 tab 06/02/20 Rx oxycodone-acetaminophen [Percocet] 1 tab PO Q8H PRN #7 tab 06/02/20 Rx phenazopyridine [Pyridium] 200 mg PO Q8H PRN #10 tab 06/02/20 Rx Past Med/Surg History Medical History Anemia hgb in the 8-9 range per review of records, on iron supplement, hx of blood transfusion post-op knee replacements (2019) Anxiety CAD (coronary artery disease) CABG x1 (1995) + stent (several years ago) Depression Difficulty voiding difficulty emptying bladder, straight cath PRN GERD (gastroesophageal reflux disease) History of basal cell carcinoma History of elevated prostate specific antigen (PSA) History of recent hospitalization [facility] 04/22/2020 HLD (hyperlipidemia) Hypothyroidism Mitral valve disorder 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 Myocardial Infarction 1995 Nephrolithiasis Pacemaker PPM/ICD (2015) 09/23 SSS, [employer] device, last check 04/2020 TIA (transient ischemic attack) per remote records/patient unaware Surgical History H/O angioplasty 1995 H/O colonoscopy H/O hernia repair inguinal History of cardiac cath History of cystoscopy cystoscopy, bladder stones extraction: 04/24/20: MAC sedation at [facility] History of esophagogastroduodenoscopy (EGD) Hx of CABG x1 vessel -- 1995 (failed, lasted 2 weeks) --> angioplasty Hx of tonsillectomy Hx of total knee arthroplasty R/L S/P Mohs surgery for basal cell carcinoma Family History Other No family history of adverse response to anesthesia Social History Smoking Status: Never smoker Second Hand Exposure: No; Do You Dip or Chew Tobacco: No; Hx Alcohol Use: No Hx Substance Use: No Preferred Language: Slovenian Communication Ability: Effective Service Car Driver Required: No Beliefs That Will Affect Care: None Current Living Situation: Spouse Other Information That Helps Us Care for You: No Feels Safe at Home: Yes Safety Concerns: Feels Safe At This Time Assistive Devices: Glasses, Hearing Aid - Bilateral and Walker Review of Systems Review of Systems: As per HPI, all 10 systems reviewed, all other ROS negative Physical Exam Physical Exam: GENERAL: Slightly uncomfortable, slightly hard of hearing, shivering, no respiratory distress SKIN: Pallor, warm HEENT: Bespectacled, pale palpebral conjunctivae, no ptosis, dry buccal mucosa NECK : Supple, no tenderness CHEST : Decreased breath sounds , no tenderness HEART : RRR, systolic murmur ABDOMEN: Some distention, no tenderness EXTREMITIES : No LE swelling/tenderness, no other conspicuous deformities noted NEUROLOGIC : Coherent, no facial asymmetry, mild hearing impairment, no other gross focality Results & Data Results & Data ([facility]) Vital Signs (Past 12 Hours) Vital Signs Temp Pulse Resp BP Pulse Ox 06/04/20 00:56 38.0 C H 06/04/20 00:30 63 20 131/55 L 93 06/04/20 00:00 73 20 124/69 99 06/03/20 23:30 88 20 140/65 95 06/03/20 23:03 95 06/03/20 23:00 60 24 129/55 L 06/03/20 22:50 70 24 138/59 L 92 06/03/20 22:39 63 19 91 06/03/20 21:38 37.7 C H 69 20 144/67 H 99 Laboratory Results Laboratory Results WBC 6.25 K/uL (4.8-10.8) 06/03/20 23:07 RBC 3.23 M/uL (4.7-6.1) L 06/03/20 23:07 Hgb 9.7 g/dL (14.0-18.0) L 06/03/20 23:07 Hct 30.7 % (42-52) L 06/03/20 23:07 MCV 95.0 fL (80-100) 06/03/20 23:07 MCH 30.0 pg (25-34) 06/03/20 23:07 MCHC 31.6 g/dL (32-36) L 06/03/20 23:07 RDW Std Deviation 52.4 fL (36.4-46.3) H 06/03/20 23:07 RDW Coeff of Courtney 15.0 % (11.5-14.5) H 06/03/20 23:07 Plt Count 250 K/uL (130-400) 06/03/20 23:07 MPV 9.6 fL (7.4-10.4) 06/03/20 23:07 Immature Gran % (Auto) 0.2 % 06/03/20 23:07 Neut % (Auto) 85.5 % 06/03/20 23:07 Lymph % (Auto) 6.7 % 06/03/20 23:07 [place] % (Auto) 7.4 % 06/03/20 23:07 Eos % (Auto) 0.0 % 06/03/20 23:07 Baso % (Auto) 0.2 % 06/03/20 23:07 Neut # (Auto) 5.35 K/uL (1.4-6.5) 06/03/20 23:07 Lymph # (Auto) 0.42 K/uL (1.2-3.4) L 06/03/20 23:07 [place] # (Auto) 0.46 K/uL (0.11-0.59) 06/03/20 23:07 Eos # (Auto) 0.00 K/uL (0-0.5) 06/03/20 23:07 Baso # (Auto) 0.01 K/uL (0-0.2) 06/03/20 23:07 Immature Gran # (Auto) 0.01 K/uL (0.00-0.02) 06/03/20 23:07 PT 14.0 Seconds (9.0-12.0) H 06/03/20 23:07 INR 1.3 (0.9-1.1) H 06/03/20 23:07 APTT 28.0 Seconds (21.0-31.0) 06/03/20 23:07 PTT Ratio 1.0 06/03/20 23:07 Sodium 137 mmol/L (136-145) 06/03/20 23:07 Potassium 3.0 mmol/L (3.5-5.1) L 06/03/20 23:07 Chloride 103 mmol/L (98-107) 06/03/20 23:07 Carbon Dioxide 27 mmol/L (21-32) 06/03/20 23:07 Anion Gap 7.0 (3-11) 06/03/20 23:07 BUN 19 mg/dl (7-18) H 06/03/20 23:07 Creatinine 0.94 mg/dl (0.6-1.4) 06/03/20 23:07 Est Cr Clr Drug Dosing 65.6 ml/min 06/03/20 23:07 Est GFR ( Amer) 84.7 06/03/20 23:07 Est GFR (Non-Af Amer) 73.1 06/03/20 23:07 BUN/Creatinine Ratio 20.5 (10-20) H 06/03/20 23:07 Glucose 100 mg/dl (70-99) H 06/03/20 23:07 Lactate 0.9 mmol/L (0.4-2.0) 06/03/20 23:07 Calcium 8.3 mg/dl (8.5-10.1) L 06/03/20 23:07 Magnesium 1.4 mg/dl (1.8-2.4) L 06/03/20 23:07 Total Bilirubin 0.3 mg/dl (0.2-1) 06/03/20 23:07 AST 18 U/L (15-37) 06/03/20 23:07 ALT 18 U/L (12-78) 06/03/20 23:07 Alkaline Phosphatase 97 U/L (45-117) 06/03/20 23:07 Troponin I 0.484 ng/ml (0-0.045) H* 06/03/20 23:07 Total Protein 6.3 gm/dl (6.4-8.2) L 06/03/20 23:07 Albumin 2.9 gm/dl (3.4-5.0) L 06/03/20 23:07 Globulin 3.4 gm/dl (2.5-4.0) 06/03/20 23:07 Albumin/Globulin Ratio 0.9 (0.9-2) 06/03/20 23:07 Procalcitonin 0.26 ng/ml (0-0.5) 10/13/20 23:07 Diagnostic Findings Chest x-ray as per my interpretation cardiomegaly, atelectasis KUB x-ray as per my interpretation right ureter stent in place EKG as per my interpretation : Rate 60, paced rhythm
[2020-06-04 01:44] LABS: Appearance Urine Turbid (Clear); Bacteria Urine Automated 2+ (Negative); Bilirubin Urine Negative (Negative); Blood Urine 3+ (Negative); Color Urine Yellow; Epithelial Cell Urine Auto 0-5 /lpf (0-5); Glucose Urine UA Negative (Negative); Ketones Urine Negative (Negative); Leukocyte Esterase Urine 3+ (Negative); Nitrite Urine Negative (Negative); Protein Urine 2+ (Negative); RBC Urine Automated >30 /hpf (0-4); Specific Gravity Urine 1.019 (1.000-1.030); Urobilinogen Urine Negative (Negative); WBC Urine Automated >30 /hpf (0-5); pH Urine 5.5 (4.5-7.5)
[2020-06-04] MEDS ORDERED: traMADol HCL 50 MG TABLET PO PRN (04:02)
[2020-06-04] MEDS ORDERED: PHENAZOPYRIDINE HCL 200 MG TAB PO PRN (04:02)
[2020-06-04] MEDS ORDERED: SENNA 8.6 MG TAB PO PRN (04:02)
[2020-06-04] MEDS ORDERED: PROMETHAZINE HCL 6.25 MG in SODIUM CHLORIDE 0.9% 50 ML IV PRN (04:02)
[2020-06-04] MEDS: LEVOTHYROXINE SODIUM 125 MCG TABLET PO SCH (06:19)
[2020-06-04] MEDS: CEFEPIME 2,000 MG in SYRINGE 0 ML IV SCH ×2 (06:19→17:35)
[2020-06-04 06:41] LABS: Basophils # (auto) 0.01 K/uL (0-0.2); Basophils % (auto) 0.1 %; Eosinophils # (auto) 0.01 K/uL (0-0.5); Eosinophils % (auto) 0.1 %; Hematocrit (blood only) 30.8 % (42-52); Hemoglobin 9.5 g/dL (14.0-18.0); Immature Granulocytes # (auto) 0.02 K/uL (0.00-0.02); Immature Granulocytes % (auto) 0.3 %; Lymphocytes # (auto) 0.54 K/uL (1.2-3.4); Lymphocytes % (auto) 6.8 %; Mean Corpuscular Hemoglobin 29.5 pg (25-34); Mean Corpuscular Hgb Conc 30.8 g/dL (32-36); Mean Corpuscular Volume 95.7 fL (80-100); Mean Platelet Volume 8.9 fL (7.4-10.4); Monocytes # (auto) 0.72 K/uL (0.11-0.59); Neutrophils # (auto) 6.69 K/uL (1.4-6.5); Neutrophils % (auto) 83.7 %; Platelet Count 228 K/uL (130-400); RDW Coefficient of Variation 15.2 % (11.5-14.5); RDW Standard Deviation 53.5 fL (36.4-46.3); Red Blood Count 3.22 M/uL (4.7-6.1); White Blood Count 7.99 K/uL (4.8-10.8)
[2020-06-04] MEDS ORDERED: ACETAMINOPHEN 325 MG TAB PO PRN (06:49)
[2020-06-04 06:51] LABS: Partial Thromboplastin Time 29.2 Seconds (21.0-31.0)
[2020-06-04 07:19] LABS: BUN Creatinine Ratio 17.1 (10-20); Calcium 8.5 mg/dl (8.5-10.1); Creatinine Clr Calc Pharmacy 60.4 ml/min; Est GFR (African American) 76.8; Est GFR (Non-African American) 66.2; Magnesium 2.1 mg/dl (1.8-2.4); Potassium 3.7 mmol/L (3.5-5.1)
[2020-06-04 07:22] LABS: Troponin I 0.539 ng/ml (0-0.045)
[2020-06-04] MEDS: CLOPIDOGREL BISULFATE 75 MG TAB PO SCH (08:24)
[2020-06-04] MEDS: FAMOTIDINE 40 MG TABLET PO SCH (08:24)
[2020-06-04] MEDS: gemfibroziL 600 MG TAB PO SCH ×2 (08:24→20:18)
[2020-06-04] MEDS: PANTOprazole 40 MG TAB PO SCH (08:24)
[2020-06-04] MEDS: FINASTERIDE 5 MG TAB PO SCH (08:24)
[2020-06-04] MEDS: amLODIPine BESYLATE 5 MG TAB PO SCH (08:25)
[2020-06-04] MEDS: FERROUS SULFATE 325 MG TAB PO SCH ×2 (08:25→20:18)
[2020-06-04] MEDS: FLUTICASONE PROPIONATE NA SPR 16 GM BTL SCH (08:25)
[2020-06-04] MEDS: ENOXAPARIN INJ 30 MG/0.3 ML SYR SQ SCH (08:26)
--- NOTE | 2020-06-04 08:31 | XRay Report ---
XR chest 1V portable HISTORY: SEPSIS COMPARISON: Chest 04/18/2020. FINDINGS: The heart is mildly enlarged. There are poststernotomy changes and a left-sided dual-chambe r pacemaker. Left basilar linear density is new from the prior study and favors atelectasis. The righ t lung is clear. No evidence for pulmonary edema. No pleural effusions. No pneumothorax. Old posttrau matic changes within the left shoulder. IMPRESSION: 1. A new left basilar linear density. This favors atelectasis. A pneumonia could also have a similar appearance but is considered less likely. 2. Stable mild cardiomegaly. ACT 112: Negative or not required by law. Electronically signed by: Osman Larios M.D. 06/04/2020 8:29 AM
--- NOTE | 2020-06-04 08:35 | XRay Report ---
KUB HISTORY: Right-sided ureteral stent. COMPARISON: Abdomen and pelvis CT 04/22/2020. FINDINGS: The bowel gas pattern is unremarkable. There are no dilated loops of small bowel to suggest an obstruction. There is a right-sided ureteral stent which appears in good position. The patient's bladder stones are not well visualized and could be obscured by overlying stool. No renal or uretera l calculi identified. Punctate calcification within the right deep pelvis favors a phlebolith. No pne umoperitoneum or pneumatosis. IMPRESSION: 1. No definite renal or ureteral stones. 2. A right ureteral stent appears in good position. ACT 112: Negative or not required by law. Electronically signed by: Osman Larios M.D. 06/04/2020 8:34 AM
[2020-06-04] MEDS ORDERED: CEFEPIME CONSULT ACTIVE PRN (09:00)
--- NOTE | 2020-06-04 13:13 | Electrocardiogram Report ---
Test Reason : Blood Pressure : / mmHG Vent. Rate : 061 BPM Atrial Rate : 061 BPM P-R Int : 154 ms QRS Dur : 150 ms QT Int : 438 ms P-R-T Axes : 011 004 017 degrees QTc Int : 440 ms Atrial-paced rhythm Right bundle branch block Inferior infarct (cited on or before 18-APR-2020) Abnormal ECG When compared with ECG of 22-APR-2020 15:23, No significant change was found Confirmed by Bari Butt ([id number]) on 06/04/2020 1:13:08 PM Referred By: Storm Lau Confirmed By:Bari Butt
--- NOTE | 2020-06-04 18:27 | Hospitalist Progress Note ---
Date of Service June 04, 2020 Assessment & Plan (1) Sepsis: Secondary to complicated UTI-clinically sepsis though typical SIRS criteria were not seen due to partially treated UTI before presentation Admitted with fever chills without chest pain, shortness of breath, cough, abdominal pain, dysuria, diarrhea symptoms. Recent urologic procedure for urolithiasis And did not finish the course of antibiotic following discharge from the hospital Urine and blood culture have been developing Streptococcus species and full identification is pending Has been getting intravenous cefepime Clinically better today-we will continue current antibiotic Hypertensive urgency secondary to illness Likely chronic hypertension given cardiomegaly Currently not on maintenance meds Started on oral amlodipine Blood pressure seems to be controlled Troponin elevation likely secondary to illness and elevated blood pressure Borderline high at 0.5 or any cardiac symptoms Will check another troponin level this evening-went down to 0.313 from 0.539 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 intake DVT prophylaxis Lovenox subcu Full code Patient's daughter requesting updates from providers. Jackie Shelbie Angeldee, contact #[phone]. We will get PT and OT evaluation for discharge Admission and Anticipated Discharge Date Admission Date: June 04, 2020 Subjective 06/04/2020 The patient was seen and examined in medical telemetry unit He denies any urinary symptoms and feels hot but does not have any fever and/or chills Denies any other symptoms 06/05/2020 The patient was seen and examined in medical telemetry unit She has been feeling much better and denies any symptoms She has minimal diarrhea but no fever and no chills Denies any dysuria Review of Systems Review of Systems: All systems reviewed and are unremarkable except as noted below Genitourinary: + urinary hesitancy; no dysuria and no flank pain Physical Exam Physical Exam: Lying in bed comfortably Constitutional: well developed and well nourished; no acute distress and not ill appearing Eyes: PERRL, conjunctivae normal, anicteric sclerae ENMT: external ear and nose normal, oropharynx normal Neck: trachea midline, no thyromegaly Respiratory: normal respiratory effort; no respiratory distress Auscultation: lungs clear to auscultation bilaterally Cardiovascular: Rate/Rhythm: regular rate and regular rhythm Heart Sounds: no murmur Extremities: no edema Gastrointestinal (Abdomen): Inspection/Auscultation: abdomen normal to inspection and normal bowel sounds; abdomen not distended Percussion/Palpation: abdomen soft; abdomen nontender Musculoskeletal: No acute arthritis involving any joint Neurologic: moves all extremities; no focal motor deficits Psychiatric: A+Ox3, euthymic affect Lymphatic: no cervical or axillary lymphadenopathy Results & Data Results & Data ([facility]) Vital Signs (Past 12 Hours) Vital Signs Temp Pulse Pulse Resp BP Pulse Ox 06/04/20 16:29 66 06/04/20 15:33 37.0 C 59 L 16 118/56 L 93 06/04/20 11:23 36.7 C 71 16 115/56 L 96 06/04/20 07:44 37.3 C 62 16 129/53 L 92 Laboratory Results Short CBC 06/03/20 06/04/20 Range/Units 23:07 06:24 WBC 6.25 7.99 (4.8-10.8) K/uL Hgb 9.7 L 9.5 L (14.0-18.0) g/dL Hct 30.7 L 30.8 L (42-52) % Plt Count 250 228 (130-400) K/uL BMP 06/03/20 06/04/20 23:07 06:24 Sodium 137 138 Potassium 3.0 L 3.7 D Chloride 103 106 Carbon Dioxide 27 29 BUN 19 H 17 Creatinine 0.94 1.02 Glucose 100 H 106 H Calcium 8.3 L 8.5 Cardiac Enzymes 06/03/20 06/04/20 Range/Units 23:07 06:24 Troponin I 0.484 H* 0.539 H* (0-0.045) ng/ml Liver Function 06/03/20 Range/Units 23:07 Total Bilirubin 0.3 (0.2-1) mg/dl AST 18 (15-37) U/L ALT 18 (12-78) U/L Alkaline Phosphatase 97 (45-117) U/L Albumin 2.9 L (3.4-5.0) gm/dl Urine 06/04/20 Range/Units 01:30 Urine Color Yellow Urine Appearance Turbid A (Clear) Urine pH 5.5 (4.5-7.5) Ur Specific [place] 1.019 (1.000-1.030) Urine Protein 2+ H (Negative) Urine Glucose (UA) Negative (Negative) reviewed labs on 06/05/2020Which were unremarkable Medications Administered Current Inpatient Medications Acetaminophen (Acetaminophen 325 Mg Tab) 650 mg PO Q4H PRN PRN Reason: Pain or Fever Stop: 07/04/20 06:48 Amlodipine Besylate (Amlodipine Besylate 5 Mg Tab) 2.5 mg PO [facility] Stop: 07/04/20 06:49 Last Admin: 06/04/20 08:25 Dose: 2.5 mg Documented by: Atorvastatin Calcium (Atorvastatin 40 Mg Tab) 80 mg PO [facility] Stop: 07/04/20 20:59 Clopidogrel Bisulfate (Clopidogrel Bisulfate 75 Mg Tab) 75 mg PO [facility] Stop: 07/04/20 08:59 Last Admin: 06/04/20 08:24 Dose: 75 mg Documented by: Enoxaparin Sodium (Enoxaparin Inj 30 Mg/0.3 Ml Syr) 30 mg SQ [facility] Stop: 07/04/20 08:59 Last Admin: 06/04/20 08:26 Dose: 30 mg Documented by: Famotidine (Famotidine 40 Mg Tablet) 40 mg PO [facility] Stop: 07/04/20 08:59 Last Admin: 06/04/20 08:24 Dose: 40 mg Documented by: Ferrous Sulfate (Ferrous Sulfate 325 Mg Tab) 325 mg PO BID [facility] Stop: 07/04/20 08:59 Last Admin: 06/04/20 08:25 Dose: 325 mg Documented by: Finasteride (Finasteride 5 Mg Tab) 5 mg PO [facility] Stop: 07/04/20 08:59 Last Admin: 06/04/20 08:24 Dose: 5 mg Documented by: Fluticasone Propionate (Fluticasone Propionate Na Spr 16 Gm Btl) 2 sprays NA [facility] Stop: 07/04/20 08:59 Last Admin: 06/04/20 08:25 Dose: 2 sprays Documented by: Gemfibrozil (Gemfibrozil 600 Mg Tab) 600 mg PO BID [facility] Stop: 07/04/20 08:59 Last Admin: 06/04/20 08:24 Dose: 600 mg Documented by: Promethazine HCl 6.25 mg/ (Sodium Chloride) 50.25 mls @ 201 mls/hr IV Q6H PRN PRN Reason: Nausea And Vomiting Stop: 07/04/20 04:01 Cefepime HCl 2,000 mg/ Syringe 20 mls @ 5 mls/min IV Q12H [facility] Stop: 06/14/20 05:59 Last Admin: 06/04/20 17:35 Dose: 5 mls/min Documented by: Levothyroxine Sodium (Levothyroxine Sodium 125 Mcg Tablet) 125 mcg PO DAILYBB [facility] Stop: 07/04/20 06:29 Last Admin: 06/04/20 06:19 Dose: 125 mcg Documented by: Miscellaneous Information (Cefepime Consult Active) 1 ea N/A UD PRN PRN Reason: Consult Stop: 07/04/20 08:59 Pantoprazole Sodium (Pantoprazole 40 Mg Tab) [facility] Stop: 07/04/20 08:59 Last Admin: 06/04/20 08:24 Dose: 40 mg Documented by: Phenazopyridine HCl (Phenazopyridine Hcl 200 Mg Tab) 200 mg PO Q8H PRN PRN Reason: Bladder pain Stop: 07/04/20 04:01 Sennosides (Senna 8.6 Mg Tab) 17.2 mg PO HS PRN PRN Reason: Constipation Stop: 07/04/20 04:01 Tamsulosin HCl (Tamsulosin Hcl 0.4 Mg Cap) 0.4 mg PO HS [facility] Stop: 07/04/20 20:59 Tramadol HCl (Tramadol Hcl 50 Mg Tablet) 25 mg PO Q4H PRN PRN Reason: Pain Stop: 07/04/20 04:01 No change in medications from 06/04/2020
[2020-06-04] MEDS: ATORVASTATIN 40 MG TAB PO SCH (20:17)
[2020-06-04] MEDS: TAMSULOSIN HCL 0.4 MG CAP PO SCH (20:18)
[2020-06-04] MEDS ORDERED: ALUMINUM/MAGNESIUM/SIMETH (MAALOX MAX) 30 ML UDC PO STA (23:56)
[2020-06-05] MEDS: LEVOTHYROXINE SODIUM 125 MCG TABLET PO SCH (06:29)
[2020-06-05] MEDS: CEFEPIME 2,000 MG in SYRINGE 0 ML IV SCH ×2 (06:30→17:31)
[2020-06-05 07:55] LABS: Basophils # (auto) 0.01 K/uL (0-0.2); Basophils % (auto) 0.2 %; Eosinophils # (auto) 0.09 K/uL (0-0.5); Eosinophils % (auto) 1.7 %; Hematocrit (blood only) 29.7 % (42-52); Hemoglobin 9.5 g/dL (14.0-18.0); Immature Granulocytes # (auto) 0.01 K/uL (0.00-0.02); Immature Granulocytes % (auto) 0.2 %; Lymphocytes # (auto) 0.69 K/uL (1.2-3.4); Lymphocytes % (auto) 12.9 %; Mean Corpuscular Hemoglobin 30.3 pg (25-34); Mean Corpuscular Volume 94.6 fL (80-100); Mean Platelet Volume 9.5 fL (7.4-10.4); Monocytes # (auto) 0.57 K/uL (0.11-0.59); Monocytes % (auto) 10.7 %; Neutrophils # (auto) 3.96 K/uL (1.4-6.5); Neutrophils % (auto) 74.3 %; Platelet Count 209 K/uL (130-400); RDW Coefficient of Variation 15.3 % (11.5-14.5); RDW Standard Deviation 52.7 fL (36.4-46.3); Red Blood Count 3.14 M/uL (4.7-6.1); White Blood Count 5.33 K/uL (4.8-10.8)
[2020-06-05 08:28] LABS: BUN Creatinine Ratio 21.1 (10-20); Calcium 8.5 mg/dl (8.5-10.1); Creatinine Clr Calc Pharmacy 66.1 ml/min; Est GFR (African American) 85.9; Est GFR (Non-African American) 74.1; Potassium 3.6 mmol/L (3.5-5.1)
[2020-06-05] MEDS: PANTOprazole 40 MG TAB PO SCH (08:42)
[2020-06-05] MEDS: gemfibroziL 600 MG TAB PO SCH ×2 (08:43→21:13)
[2020-06-05] MEDS: FAMOTIDINE 40 MG TABLET PO SCH (08:43)
[2020-06-05] MEDS: amLODIPine BESYLATE 5 MG TAB PO SCH (08:43)
[2020-06-05] MEDS: FINASTERIDE 5 MG TAB PO SCH (08:43)
[2020-06-05] MEDS: FERROUS SULFATE 325 MG TAB PO SCH ×2 (08:43→21:13)
[2020-06-05] MEDS: CLOPIDOGREL BISULFATE 75 MG TAB PO SCH (08:44)
[2020-06-05] MEDS: FLUTICASONE PROPIONATE NA SPR 16 GM BTL SCH (08:44)
[2020-06-05] MEDS: ENOXAPARIN INJ 30 MG/0.3 ML SYR SQ SCH (08:44)
[2020-06-05] MEDS: ATORVASTATIN 40 MG TAB PO SCH (21:13)
[2020-06-05] MEDS: TAMSULOSIN HCL 0.4 MG CAP PO SCH (21:14)
[2020-06-06] MEDS: LEVOTHYROXINE SODIUM 125 MCG TABLET PO SCH (05:56)
[2020-06-06] MEDS: CEFEPIME 2,000 MG in SYRINGE 0 ML IV SCH (05:57)
[2020-06-06] MEDS: FERROUS SULFATE 325 MG TAB PO SCH ×2 (08:11→20:10)
[2020-06-06] MEDS: FINASTERIDE 5 MG TAB PO SCH (08:11)
[2020-06-06] MEDS: CLOPIDOGREL BISULFATE 75 MG TAB PO SCH (08:11)
[2020-06-06] MEDS: gemfibroziL 600 MG TAB PO SCH ×2 (08:11→20:09)
[2020-06-06] MEDS: FAMOTIDINE 40 MG TABLET PO SCH (08:11)
[2020-06-06] MEDS: PANTOprazole 40 MG TAB PO SCH (08:11)
[2020-06-06] MEDS: ENOXAPARIN INJ 30 MG/0.3 ML SYR SQ SCH (08:11)
[2020-06-06] MEDS: amLODIPine BESYLATE 5 MG TAB PO SCH (08:11)
[2020-06-06] MEDS: FLUTICASONE PROPIONATE NA SPR 16 GM BTL SCH (08:12)
[2020-06-06] MEDS ORDERED: VANCOMYCIN CONSULT ACTIVE PRN (12:47)
[2020-06-06] MEDS ORDERED: VANCOMYCIN HCL 2,000 MG in SODIUM CHLORIDE 0.9% 500 ML IV ONE (13:15)
--- NOTE | 2020-06-06 15:23 | Pharmacy Report ---
Pharmacy Abx Dose Short Note - Date of Service June 06, 2020 - Assessment & Plan Assessment 84 year old M receiving vancomycin for treatment of UTI- complicated Day # 1 of antimicrobial therapy. Plan Vancomycin * vancomycin 2 gm IV x 1 load given (25 mg/kg) * Patient meets criteria for vancomycin AUC dosing nomogram * AUC/DEBI is the preferred PK/PD target for vancomycin * Target AUC/DEBI = 400-600 * AUC guided dosing is effective and associated with decreased risk of nephrotoxicity * vancomycin 1 gm IV q12 started --- will adjust times to shorten interval so that dose times are at reasonable times of the day for home administration. Pharmacy will continue to follow and will adjust dose/frequency as necessary. Thank you.
--- NOTE | 2020-06-06 16:21 | XRay Report ---
XR chest 1V portable HISTORY: LEFT PICC LINE PLACEMENT COMPARISON: Chest 06/03/2020. FINDINGS: No pneumothorax. No pleural effusions. The heart is normal in size. There is left-sided nirmal l-chamber pacemaker. Poststernotomy changes. The lungs are clear. No evidence for pulmonary edema. Th ere is a left PICC which terminates at the expected location of the proximal SVC. IMPRESSION: The left PICC terminates at the proximal SVC. ACT 112: Negative or not required by law. Electronically signed by: Osman Larios M.D. 06/06/2020 4:20 PM
--- NOTE | 2020-06-06 17:59 | Hospitalist Progress Note ---
Date of Service June 06, 2020 Assessment & Plan (1) Sepsis: Secondary to complicated UTI-clinically sepsis though typical SIRS criteria were not seen due to partially treated UTI before presentation Admitted with fever chills without chest pain, shortness of breath, cough, abdominal pain, dysuria, diarrhea symptoms. Recent urologic procedure for urolithiasis And did not finish the course of antibiotic following discharge from the hospital Urine and blood culture have been developing Streptococcus species and full identification is pending Has been getting intravenous cefepime Clinically better today-we will continue current antibiotic Urine culture grew Enterococcus faecium which is sensitive to a few antibiotics including vancomycin Vancomycin intravenously started PICC line placed and the patient will likely be discharged tomorrow Hypertensive urgency secondary to illness Likely chronic hypertension given cardiomegaly Currently not on maintenance meds Started on oral amlodipine Blood pressure seems to be controlled Troponin elevation likely secondary to illness and elevated blood pressure Borderline high at 0.5 or any cardiac symptoms Will check another troponin level this evening-went down to 0.313 from 0.539 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 intake DVT prophylaxis Lovenox subcu Full code Patient's daughter requesting updates from providers. Ms. Shelbie Angelbeatrizthierry, contact #[phone]. We will get PT and OT evaluation for discharge Admission and Anticipated Discharge Date Admission Date: June 04, 2020 Subjective 06/04/2020 The patient was seen and examined in medical telemetry unit He denies any urinary symptoms and feels hot but does not have any fever and/or chills Denies any other symptoms 06/05/2020 The patient was seen and examined in medical telemetry unit She has been feeling much better and denies any symptoms She has minimal diarrhea but no fever and no chills Denies any dysuria 06/06/2020 The patient was seen and examined in medical telemetry unit He remains stable without any fever and/or chills Denies any symptoms of UTI Review of Systems Review of Systems: All systems reviewed and are unremarkable except as noted below Genitourinary: + urinary hesitancy; no dysuria and no flank pain Physical Exam Physical Exam: Lying in bed comfortably Constitutional: well developed and well nourished; no acute distress and not ill appearing Eyes: PERRL, conjunctivae normal, anicteric sclerae ENMT: external ear and nose normal, oropharynx normal Neck: trachea midline, no thyromegaly Respiratory: normal respiratory effort; no respiratory distress Auscultation: lungs clear to auscultation bilaterally Cardiovascular: Rate/Rhythm: regular rate and regular rhythm Heart Sounds: no murmur Extremities: no edema Gastrointestinal (Abdomen): Inspection/Auscultation: abdomen normal to inspection and normal bowel sounds; abdomen not distended Percussion/Palpation: abdomen soft; abdomen nontender Neurologic: moves all extremities; no focal motor deficits Psychiatric: A+Ox3, euthymic affect Lymphatic: no cervical or axillary lymphadenopathy Results & Data Results & Data ([facility]) Vital Signs (Past 12 Hours) Vital Signs Temp Pulse Resp BP BP Pulse Ox 06/06/20 16:00 36.4 C L 65 18 150/74 H 97 06/06/20 11:45 36.4 C L 63 18 105/57 L 96 06/06/20 07:58 36.8 C 60 17 131/68 94 Medications Administered Current Inpatient Medications Acetaminophen (Acetaminophen 325 Mg Tab) 650 mg PO Q4H PRN PRN Reason: Pain or Fever Stop: 07/04/20 06:48 Amlodipine Besylate (Amlodipine Besylate 5 Mg Tab) 2.5 mg PO [facility] Stop: 07/04/20 06:49 Last Admin: 06/06/20 08:11 Dose: 2.5 mg Documented by: Atorvastatin Calcium (Atorvastatin 40 Mg Tab) 80 mg PO [facility] Stop: 07/04/20 20:59 Last Admin: 06/05/20 21:13 Dose: 80 mg Documented by: Clopidogrel Bisulfate (Clopidogrel Bisulfate 75 Mg Tab) 75 mg PO [facility] Stop: 07/04/20 08:59 Last Admin: 06/06/20 08:11 Dose: 75 mg Documented by: Enoxaparin Sodium (Enoxaparin Inj 30 Mg/0.3 Ml Syr) 30 mg SQ [facility] Stop: 07/04/20 08:59 Last Admin: 06/06/20 08:11 Dose: 30 mg Documented by: Famotidine (Famotidine 40 Mg Tablet) [facility] Stop: 07/04/20 08:59 Last Admin: 06/06/20 08:11 Dose: 40 mg Documented by: Ferrous Sulfate (Ferrous Sulfate 325 Mg Tab) 325 mg PO BID [facility] Stop: 07/04/20 08:59 Last Admin: 06/06/20 08:11 Dose: 325 mg Documented by: Finasteride (Finasteride 5 Mg Tab) 5 mg PO QAM [facility] Stop: 07/04/20 08:59 Last Admin: 06/06/20 08:11 Dose: 5 mg Documented by: Fluticasone Propionate (Fluticasone Propionate Na Spr 16 Gm Btl) 2 sprays NA QAM [facility] Stop: 07/04/20 08:59 Last Admin: 06/06/20 08:12 Dose: 2 sprays Documented by: Gemfibrozil (Gemfibrozil 600 Mg Tab) 600 mg PO BID [facility] Stop: 07/04/20 08:59 Last Admin: 06/06/20 08:11 Dose: 600 mg Documented by: Promethazine HCl 6.25 mg/ (Sodium Chloride) 50.25 mls @ 201 mls/hr IV Q6H PRN PRN Reason: Nausea And Vomiting Stop: 07/04/20 04:01 Vancomycin HCl 1,000 mg/ (Sodium Chloride) 270 mls @ 200 mls/hr IV Q12H [facility] Stop: 06/16/20 22:59 Levothyroxine Sodium (Levothyroxine Sodium 125 Mcg Tablet) 125 mcg PO DAILYBB [facility] Stop: 07/04/20 06:29 Last Admin: 06/06/20 05:56 Dose: 125 mcg Documented by: Miscellaneous Information (Vancomycin Consult Active) 1 ea N/A UD PRN PRN Reason: Consult Stop: 07/06/20 12:46 Pantoprazole Sodium (Pantoprazole 40 Mg Tab) [facility] Stop: 07/04/20 08:59 Last Admin: 06/06/20 08:11 Dose: 40 mg Documented by: Phenazopyridine HCl (Phenazopyridine Hcl 200 Mg Tab) 200 mg PO Q8H PRN PRN Reason: Bladder pain Stop: 07/04/20 04:01 Sennosides (Senna 8.6 Mg Tab) 17.2 mg PO HS PRN PRN Reason: Constipation Stop: 07/04/20 04:01 Tamsulosin HCl (Tamsulosin Hcl 0.4 Mg Cap) 0.4 mg PO HS [facility] Stop: 07/04/20 20:59 Last Admin: 06/05/20 21:14 Dose: 0.4 mg Documented by: Tramadol HCl (Tramadol Hcl 50 Mg Tablet) 25 mg PO Q4H PRN PRN Reason: Pain Stop: 07/04/20 04:01 Last Admin: 06/05/20 08:53 Dose: 25 mg Documented by:
[2020-06-06] MEDS: ATORVASTATIN 40 MG TAB PO SCH (20:09)
[2020-06-06] MEDS: TAMSULOSIN HCL 0.4 MG CAP PO SCH (20:10)
[2020-06-06] MEDS: VANCOMYCIN HCL 1,000 MG in SODIUM CHLORIDE 0.9% 250 ML IV SCH (22:46)
[2020-06-07] MEDS: LEVOTHYROXINE SODIUM 125 MCG TABLET PO SCH (05:59)
[2020-06-07] MEDS: gemfibroziL 600 MG TAB PO SCH (07:44)
[2020-06-07] MEDS: FAMOTIDINE 40 MG TABLET PO SCH (07:44)
[2020-06-07] MEDS: ENOXAPARIN INJ 30 MG/0.3 ML SYR SQ SCH (07:44)
[2020-06-07] MEDS: FLUTICASONE PROPIONATE NA SPR 16 GM BTL SCH (07:44)
[2020-06-07] MEDS: CLOPIDOGREL BISULFATE 75 MG TAB PO SCH (07:45)
[2020-06-07] MEDS: amLODIPine BESYLATE 5 MG TAB PO SCH (07:45)
[2020-06-07] MEDS: PANTOprazole 40 MG TAB PO SCH (07:46)
[2020-06-07] MEDS: FERROUS SULFATE 325 MG TAB PO SCH (07:46)
[2020-06-07] MEDS: FINASTERIDE 5 MG TAB PO SCH (07:46)
[2020-06-07] MEDS: VANCOMYCIN HCL 1,000 MG in SODIUM CHLORIDE 0.9% 250 ML IV SCH (07:50)
--- NOTE | 2020-06-07 13:04 | Hospitalist Progress Note ---
Date of Service June 07, 2020 Assessment & Plan (1) Sepsis: Secondary to complicated UTI-clinically sepsis though typical SIRS criteria were not seen due to partially treated UTI before presentation Admitted with fever chills without chest pain, shortness of breath, cough, abdominal pain, dysuria, diarrhea symptoms. Recent urologic procedure for urolithiasis And did not finish the course of antibiotic following discharge from the hospital Urine and blood culture have been developing Streptococcus species and full identification is pending Has been getting intravenous cefepime Clinically better today-we will continue current antibiotic Urine culture grew Enterococcus faecium which is sensitive to a few antibiotics including vancomycin Vancomycin intravenously started PICC line placed and the patient will likely be discharged tomorrow Has been on intravenous vancomycin 1 g twice daily since yesterday We will continue antibiotic for 10 days following discharge today Hypertensive urgency secondary to illness Likely chronic hypertension given cardiomegaly Currently not on maintenance meds Started on oral amlodipine Blood pressure seems to be controlled Troponin elevation likely secondary to illness and elevated blood pressure Borderline high at 0.5 or any cardiac symptoms Will check another troponin level this evening-went down to 0.313 from 0.539 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 intake No acute symptoms DVT prophylaxis Lovenox subcu Full code Patient's daughter requesting updates from providers. Ms. Shelbie Bailey, contact #[phone]. Discussed with Shelbie in detail and the patient was discharged this afternoon Admission and Anticipated Discharge Date Admission Date: June 04, 2020 Subjective 06/04/2020 The patient was seen and examined in medical telemetry unit He denies any urinary symptoms and feels hot but does not have any fever and/or chills Denies any other symptoms 06/05/2020 The patient was seen and examined in medical telemetry unit She has been feeling much better and denies any symptoms She has minimal diarrhea but no fever and no chills Denies any dysuria 06/06/2020 The patient was seen and examined in medical telemetry unit He remains stable without any fever and/or chills Denies any symptoms of UTI 06/07/2020 The patient was seen and examined in medical telemetry unit He has been feeling a lot better and is ready to be discharged Denies any symptoms whatsoever Review of Systems Review of Systems: All systems reviewed and are unremarkable except as noted below Genitourinary: no dysuria, no urinary hesitancy and no flank pain Physical Exam Physical Exam: Lying in bed comfortably Constitutional: well developed and well nourished; no acute distress and not ill appearing Eyes: PERRL, conjunctivae normal, anicteric sclerae ENMT: external ear and nose normal, oropharynx normal Neck: trachea midline, no thyromegaly Respiratory: normal respiratory effort; no respiratory distress Auscultation: lungs clear to auscultation bilaterally Cardiovascular: Rate/Rhythm: regular rate and regular rhythm Heart Sounds: no murmur Extremities: no edema Gastrointestinal (Abdomen): Inspection/Auscultation: abdomen normal to inspection and normal bowel sounds; abdomen not distended Percussion/Palpation: abdomen soft; abdomen nontender Musculoskeletal: No acute arthritis involving any joint Neurologic: moves all extremities; no focal motor deficits Psychiatric: A+Ox3, euthymic affect Lymphatic: no cervical or axillary lymphadenopathy Results & Data Results & Data ([facility]) Vital Signs (Past 12 Hours) Vital Signs Temp Pulse Resp BP BP Pulse Ox 06/07/20 12:42 36.6 C 63 17 124/68 95 06/07/20 11:47 36.9 C 63 17 115/59 L 136/73 96 06/07/20 07:32 36.9 C 63 17 136/73 96 06/07/20 04:00 36.8 C 93 H 20 116/78 94 Medications Administered Current Inpatient Medications Acetaminophen (Acetaminophen 325 Mg Tab) 650 mg PO Q4H PRN PRN Reason: Pain or Fever Stop: 07/04/20 06:48 Amlodipine Besylate (Amlodipine Besylate 5 Mg Tab) 2.5 mg PO [facility] Stop: 07/04/20 06:49 Last Admin: 06/07/20 07:45 Dose: 2.5 mg Documented by: Atorvastatin Calcium (Atorvastatin 40 Mg Tab) 80 mg PO [facility] Stop: 07/04/20 20:59 Last Admin: 06/06/20 20:09 Dose: 80 mg Documented by: Clopidogrel Bisulfate (Clopidogrel Bisulfate 75 Mg Tab) [facility] Stop: 07/04/20 08:59 Last Admin: 06/07/20 07:45 Dose: 75 mg Documented by: Enoxaparin Sodium (Enoxaparin Inj 30 Mg/0.3 Ml Syr) 30 mg SQ QAM [facility] Stop: 07/04/20 08:59 Last Admin: 06/07/20 07:44 Dose: 30 mg Documented by: Famotidine (Famotidine 40 Mg Tablet) 40 mg PO QAM [facility] Stop: 07/04/20 08:59 Last Admin: 06/07/20 07:44 Dose: 40 mg Documented by: Ferrous Sulfate (Ferrous Sulfate 325 Mg Tab) 325 mg PO BID [facility] Stop: 07/04/20 08:59 Last Admin: 06/07/20 07:46 Dose: 325 mg Documented by: Finasteride (Finasteride 5 Mg Tab) [facility] Stop: 07/04/20 08:59 Last Admin: 06/07/20 07:46 Dose: 5 mg Documented by: Fluticasone Propionate (Fluticasone Propionate Na Spr 16 Gm Btl) 2 sprays NA [facility] Stop: 07/04/20 08:59 Last Admin: 06/07/20 07:44 Dose: 2 sprays Documented by: Gemfibrozil (Gemfibrozil 600 Mg Tab) 600 mg PO BID [facility] Stop: 07/04/20 08:59 Last Admin: 06/07/20 07:44 Dose: 600 mg Documented by: Heparin Sodium (Beef Lung) (Heparin 10 Unit/Ml 5 Ml Flush) 5 ml FLUSH PRN PRN PRN Reason: Flush Stop: 07/07/20 03:21 Last Admin: 06/07/20 09:44 Dose: 5 ml Documented by: Promethazine HCl 6.25 mg/ (Sodium Chloride) 50.25 mls @ 201 mls/hr IV Q6H PRN PRN Reason: Nausea And Vomiting Stop: 07/04/20 04:01 Vancomycin HCl 1,000 mg/ (Sodium Chloride) 270 mls @ 200 mls/hr IV Q12H [facility] Stop: 06/16/20 22:59 Last Infusion: 06/07/20 09:13 Dose: Infused Documented by: Levothyroxine Sodium (Levothyroxine Sodium 125 Mcg Tablet) 125 mcg PO DAILYBB [facility] Stop: 07/04/20 06:29 Last Admin: 06/07/20 05:59 Dose: 125 mcg Documented by: Miscellaneous Information (Vancomycin Consult Active) 1 ea N/A UD PRN PRN Reason: Consult Stop: 07/06/20 12:46 Pantoprazole Sodium (Pantoprazole 40 Mg Tab) 40 mg PO QAM [facility] Stop: 07/04/20 08:59 Last Admin: 06/07/20 07:46 Dose: 40 mg Documented by: Phenazopyridine HCl (Phenazopyridine Hcl 200 Mg Tab) 200 mg PO Q8H PRN PRN Reason: Bladder pain Stop: 07/04/20 04:01 Sennosides (Senna 8.6 Mg Tab) 17.2 mg PO HS PRN PRN Reason: Constipation Stop: 07/04/20 04:01 Tamsulosin HCl (Tamsulosin Hcl 0.4 Mg Cap) 0.4 mg PO HS [facility] Stop: 07/04/20 20:59 Last Admin: 06/06/20 20:10 Dose: 0.4 mg Documented by: Tramadol HCl (Tramadol Hcl 50 Mg Tablet) 25 mg PO Q4H PRN PRN Reason: Pain Stop: 07/04/20 04:01 Last Admin: 06/05/20 08:53 Dose: 25 mg Documented by:
[2020-06-08] MEDS ORDERED: VANCOMYCIN TROUGH ONE (08:30)
--- NOTE | 2020-06-08 08:57 | Discharge Summary ---
Date of Service June 08, 2020 Admission HPI Per Admitting Provider History obtained from patient, family, and records. History somewhat limited from patient secondary to hearing impairment. Medical history significant for CAD status post CABG, SSS status post PPM, mitral regurgitation as per records, hypertension, hyperlipidemia, urolithiasis, chronic anemia (baseline hemoglobin of 9). 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 During confinement patient underwent right ureter placement, TURP, cystoscopy, and bladder stone extraction for urolithiasis. 2 days ago, patient underwent cystoscopy, lithotripsy, basket extraction of stone and ureteral stent exchange outpatient by [facility]. Patient did not comply with outpatient Cipro prescription after he read about potential side effects of medication. Yesterday, patient noted fever chills without chest pain, shortness of breath, cough, abdominal pain, dysuria, diarrhea symptoms. Urine noted to be darker than usual. At the ER, patient received vancomycin and Zosyn for sepsis. Medical History as above Surgical History : Knee surgery, CABG, PPM, tonsillectomy/adenectomy, hernia repair, urologic procedures Family History : Diabetes, Personal/Social history : Non-smoker, no EtOH intake, retired goode Admission Exam Per Admitting Provider Physical Exam: GENERAL: Slightly uncomfortable, slightly hard of hearing, shivering, no respiratory distress SKIN: Pallor, warm HEENT: Bespectacled, pale palpebral conjunctivae, no ptosis, dry buccal mucosa NECK : Supple, no tenderness CHEST : Decreased breath sounds , no tenderness HEART : RRR, systolic murmur ABDOMEN: Some distention, no tenderness EXTREMITIES : No LE swelling/tenderness, no other conspicuous deformities noted NEUROLOGIC : Coherent, no facial asymmetry, mild hearing impairment, no other gross focality Principal Diagnosis Sepsis secondary to complicated UTI, hypertensive urgency, CAD status post CABG Discharge Exam Constitutional well developed and well nourished; no acute distress and not ill appearing Eyes PERRL, conjunctivae normal, anicteric sclerae ENMT external ear and nose normal, oropharynx normal Neck trachea midline, no thyromegaly Respiratory normal respiratory effort; no respiratory distress Auscultation: lungs clear to auscultation bilaterally Cardiovascular Rate/Rhythm: regular rate and regular rhythm Heart Sounds: no murmur Extremities: no edema Gastrointestinal (Abdomen) Inspection/Auscultation: abdomen normal to inspection and normal bowel sounds; abdomen not distended Percussion/Palpation: abdomen soft; abdomen nontender Neurologic moves all extremities; no focal motor deficits Psychiatric A+Ox3, euthymic affect Lymphatic no cervical or axillary lymphadenopathy Discharge Data Allergies Allergy/AdvReac Type Severity Reaction Status Date / Time aspirin Allergy Severe hives, Verified 06/02/20 07:42 angioedema cilostazol Allergy Unknown Unknown Verified 06/02/20 07:42 lactose AdvReac Mild GI symptoms Verified 06/02/20 07:42 Consultations 06/04/20 00:51 ED Decision to Admit Stat 06/04/20 06:50 Consult Case Management - Discharge Planning Routine Hospital Course (1) Sepsis: Secondary to complicated UTI-clinically sepsis though typical SIRS criteria were not seen due to partially treated UTI before presentation Admitted with fever chills without chest pain, shortness of breath, cough, abdominal pain, dysuria, diarrhea symptoms. Recent urologic procedure for urolithiasis And did not finish the course of antibiotic following discharge from the hospital Urine and blood culture have been developing Streptococcus species and full identification is pending Has been getting intravenous cefepime Clinically better today-we will continue current antibiotic Urine culture grew Enterococcus faecium which is sensitive to a few antibiotics including vancomycin Vancomycin intravenously started PICC line placed and the patient will likely be discharged tomorrow Has been on intravenous vancomycin 1 g twice daily since yesterday We will continue antibiotic for 10 days following discharge today Hypertensive urgency secondary to illness Likely chronic hypertension given cardiomegaly Currently not on maintenance meds Started on oral amlodipine Blood pressure seems to be controlled Troponin elevation likely secondary to illness and elevated blood pressure Borderline high at 0.5 or any cardiac symptoms Will check another troponin level this evening-went down to 0.313 from 0.539 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 intake No acute symptoms DVT prophylaxis Lovenox subcu Full code Patient's daughter requesting updates from providers. Ms. Shelbie Bailey, contact #[phone]. Discussed with Shelbie in detail and the patient was discharged this afternoon Total Time Total Time Spent Total Time Spent (In Minutes): 35 minutes Total Time Includes: Examination of the Patient, Discharge Planning, Medication Reconciliation and Communication With Other Providers Discharge Plan Discharge Items Patient Disposition: Home - Home Health Services Reason For Visit: SEPSIS Discharge Diagnosis: Sepsis secondary to complicated UTI, hypertensive urgency, CAD status post CABG Condition on Discharge: Good Activity: Resume your previous activity Non-emergency contact: Primary Care Provider Call non-emergency contact if: you have any medication questions and your symptoms worsen Follow-up/Referrals: Darell Mckeon DO [Primary Care Provider] - (Date & Time 06/10/2020 11:20 AM Provider Pastora Harrington MD Department General Internal Medicine [facility] ) Diet: Heart Healthy Addtl Attending Provider Instructions: Please take precaution to avoid falls Finish the course of intravenous vancomycin as directed Pending Studies at Discharge: No Stand-Alone Forms: My [facility] [place], Smoking Cessation Medications and DC Order Prescriptions: New amlodipine [Norvasc] 5 mg Tablet 2.5 mg PO QAM 30 Days Qty: 15 RF: 0 Lactinex 1 million cell tablet,chewable 1 tab PO BID Qty: 30 RF: 0 Continued tamsulosin 0.4 mg capsule 0.4 mg PO HS Qty: 30 RF: 1 atorvastatin 80 mg tablet 80 mg PO HS RF: 0 clopidogrel [Plavix] 75 mg tablet 75 mg PO QAM RF: 0 fluticasone propionate 50 mcg/actuation spray,suspension 2 sprays INTNAS QAM RF: 0 gemfibrozil [Lopid] 600 mg tablet 600 mg PO BID RF: 0 levothyroxine 125 mcg capsule 125 mcg PO QAM RF: 0 nitroglycerin [Nitrostat] 0.4 mg tablet, sublingual 0.4 mg SL DIRECTED PRN (Reason: Chest Pain) RF: 0 ascorbic acid (vitamin C) 500 mg Tablet 1,000 mg PO QAM RF: 0 pantoprazole [Protonix] 40 mg Tablet,Delayed Release (Dr/Ec) 40 mg PO QAM RF: 0 finasteride [Proscar] 5 mg tablet 5 mg PO QAM RF: 0 alprazolam [Xanax] 0.25 mg Tablet 0.25 mg PO Q12 PRN (Reason: Anxiety/Insomnia) RF: 0 multivitamin with minerals [Multiple Vitamin-Minerals] Tablet 1 tab PO QAM RF: 0 alum-mag hydroxide-simeth [Mylanta Maximum Strength] 400-400-40 mg/5 mL Suspension 10 ml PO Q4H PRN (Reason: Indigestion related to nausea) RF: 0 amoxicillin 500 mg capsule 2,000 mg PO DIRECTED PRN (Reason: Prophylaxis) RF: 0 acetaminophen 325 mg Tablet 650 mg PO Q4H MDD 3 GMS APAP/24 HOURS PRN (Reason: Pain) RF: 0 famotidine [Pepcid] 40 mg tablet 40 mg PO QAM RF: 0 calcium carbonate [Calcium 500] 500 mg calcium (1,250 mg) Tablet,Chewable 1,000 mg PO Q6H PRN (Reason: Indigestion) RF: 0 sennosides [senna] 8.6 mg Tablet 17.2 mg PO HS PRN (Reason: Constipation) RF: 0 ondansetron HCl 4 mg Tablet 4 mg PO Q4H PRN (Reason: Nausea And Vomiting) RF: 0 ferrous sulfate 325 mg (65 mg iron) Tablet 325 mg PO BID RF: 0 phenazopyridine [Pyridium] 200 mg tablet 200 mg PO Q8H PRN (Reason: pain) Qty: 10 RF: 0 oxycodone-acetaminophen [Percocet] 7.5-325 mg tablet 1 tab PO Q8H PRN (Reason: pain) Qty: 7 RF: 0 Discontinued cephalexin [Keflex] 500 mg capsule 500 mg PO BID 5 Days Qty: 10 RF: 0 ciprofloxacin HCl [Cipro] 500 mg tablet 500 mg PO Q12H Qty: 6 RF: 0 Discharge Orders: Discharge Order (Routine); Ordered 06/07/20 Ordered By: Milady Velasco Admission Data Admit Date/Time: 06/04/20 01:12 Attending Provider: Milady Velasco Admit Provider: Marc Rosado Primary Care Provider: Darell Mckeon Other Providers: Marc Rosado Other Interventions: Discharge Summary Assessment (RN) Last Done: 06/07/20 11:47
== END 2020-06-07 15:07 | disposition home or self-care (01) | DRG 854 ==
LOC: ED 21:37 → 2W 06-04 01:12